=== PATIENT | female | born 1950 | race Caucasian/White ===

== ENCOUNTER → 2016-05-20 | Outpatient (CLI) | payer BC ==
[~2016-05-20] MED LIST: ASCA500 PO; ASPCH81; CLCC1250 PO; HYDC25 PO; MEDLIST; MULT-506 PO; OMEG10007 PO; PRM625 PO
--- NOTE | 2016-05-20 13:35 | MAMMOGRAPHY REPORT ---
BILATERAL DIGITAL SCREENING MAMMOGRAM WITH CAD: 05/20/2016 CLINICAL HISTORY: Routine screening. Patient has no complaints. TECHNIQUE: Current study was also evaluated with a Computer Aided Detection (CAD) system. Bilatera l CC and MLO views were obtained. COMPARISON: Comparison is made to exams dated: 05/17/2015 mammogram, 05/09/2014 mammogram, 05/08/2013 mammogram, 12/12/2014 mammogram, 05/05/2012 mammogram, and 04/30/2011 mammogram - [facility] enter. BREAST COMPOSITION: There are scattered areas of fibroglandular density in both breasts. FINDINGS: No suspicious masses, calcifications, or areas of architectural distortion are noted in e ither breast. There has been no significant interval change compared to prior exams. A biopsy marke r clip is again noted in the left upper outer quadrant. Bilateral benign-appearing calcifications a re not significantly changed. Small benign-appearing masses, most prominent in the right medial onesimo ast, are stable. IMPRESSION: ACR BI-RADS CATEGORY 2: BENIGN There is no mammographic evidence of malignancy. A 1 year screening mammogram is recommended. The p atient will receive written notification of the results. Approximately 10% of breast cancers are not detected with mammography. A negative mammographic repor t should not delay biopsy if a clinically suggestive mass is present. Sadia Miranda M.D. /:05/20/2016 07:39:22 Retail Zone Specialist: Inna GREENWOOD(Magdalena)(M), [facility] letter sent: Normal 1/2 BI-RADS Code: ACR BI-RADS Category 2: Benign
== END | disposition home or self-care (01) ==
LOC: C.MAMM 07:05
PROVIDERS: ATTEND Family Medicine
DX: Z12.31 Encounter for screening mammogram for malignant neoplasm of breast (principal)

== ENCOUNTER → 2017-05-24 | Outpatient (CLI) | payer BC ==
--- NOTE | 2017-05-25 07:55 | MAMMOGRAPHY REPORT ---
BILATERAL DIGITAL SCREENING MAMMOGRAM TOMOSYNTHESIS WITH CAD: 05/24/2017 CLINICAL HISTORY: Routine screening. Patient has no complaints. TECHNIQUE: Breast tomosynthesis in addition to standard 2D mammography was performed. Current study was also evaluated with a Computer Aided Detection (CAD) system. COMPARISON: Comparison is made to exams dated: 05/20/2016 mammogram, 05/17/2015 mammogram, 12/12/2014 m ammogram, 05/30/2014 mammogram, 05/30/2014 stereotactic biopsy, and 05/18/2014 ultrasound - [facility]. BREAST COMPOSITION: There are scattered areas of fibroglandular density in both breasts. FINDINGS: There are 2 lobulated masses in the lower inner anterior right breast/subareolar right onesimo ast that may be increased in size comparing to prior mammograms. Additional targeted ultrasound and possible additional mammographic views are recommended. A stable dumbbell shaped biopsy marker clip in the upper outer quadrant of the left breast. Scattere d benign rim calcifications. No other suspicious mass, architectural distortion or cluster of microc alcifications is seen. IMPRESSION: ACR BI-RADS CATEGORY 0: INCOMPLETE EVALUATION: NEED ADDITIONAL IMAGING EVALUATION The 2 lobulated masses in the lower inner anterior right breast needs additional evaluation. The patient will be called to schedule an appointment. Approximately 10% of breast cancers are not detected with mammography. A negative mammographic report should not delay biopsy if a clinically suggestive mass is present. Radha Guerra M.D. ay/:05/24/2017 18:18:04 Manager Media: Destiny GREENWOOD(Magdalena)([place]), [facility] letter sent: Addl Imaging 0 BI-RADS Code: ACR BI-RADS Category 0: Incomplete Evaluation: Need Additional Imaging Evaluation
== END | disposition home or self-care (01) ==
LOC: C.MAMM 07:08
PROVIDERS: ATTEND Family Medicine
DX: Z12.31 Encounter for screening mammogram for malignant neoplasm of breast (principal); N63.14 Unspecified lump in the right breast, lower inner quadrant

== ENCOUNTER → 2017-06-02 | Outpatient (CLI) | payer BC ==
--- NOTE | 2017-06-03 08:04 | MAMMOGRAPHY REPORT ---
ULTRASOUND OF RIGHT BREAST: 06/02/2017 CLINICAL HISTORY: 66-year-old woman called back from screening mammography for 2 possible masses in t he lower inner anterior right breast. She has a history of prior benign left breast stereotactic barbara ded biopsy performed in 2014. COMPARISON: Comparison is made to exams dated: 05/24/2017 mammogram, 05/20/2016 mammogram, 05/17/2015 m ammogram, 05/09/2014 mammogram, 05/08/2013 mammogram, and 05/05/2012 mammogram - [facility] nter. FINDINGS: Targeted ultrasound was performed in the lower inner quadrant of the right breast to assess for the mammographic masses. In the 4:00 axis, 1 cm from the nipple, there is a cluster of microcys ts with nonvascular internal septations. This cluster of microcysts measures 9.1 x 5.5 x 8.0 mm, and correlates with the more posterior mass seen in the right lower inner anterior breast. In the 4:00 periareolar breast there is a lobulated anechoic and hypoechoic cystic-appearing mass without evidenc e of internal vascularity. 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 While reviewing prior mammograms, the more anterior mass has likely been present and unchanged dating back to at least 2010 and the posterior mass appears unchanged dating back to 2013, therefore both are considered kendall gn. Recommend follow-up at time of next annual screening mammogram. IMPRESSION: ACR BI-RADS CATEGORY 2: BENIGN The two masses in the lower inner anterior right breast seen mammographically correspond to a microcl ip cyst cluster and focal duct ectasia on ultrasound. There is no targeted sonographic evidence of m alignancy. Recommend tomosynthesis screening mammography in 1 year. Radha Guerra M.D. ay/:06/02/2017 15:27:09 [address] Worker: Inna GREENWOOD(Magdalena)(M), [facility] letter sent: Normal 1/2 BI-RADS Code: ACR BI-RADS Category 2: Benign
== END | disposition home or self-care (01) ==
LOC: C.MAMM 13:28
PROVIDERS: ATTEND Family Medicine
DX: N63.10 Unspecified lump in the right breast, unspecified quadrant (principal)

== ENCOUNTER → 2017-07-19 | Day surgery (SDC) | payer BC ==
[2017-06-15 10:41] VITALS: Ht 160 cm; Wt 65.0 kg
[~2017-07-19] VITALS: Ht 160 cm; Wt 65.0 kg
[~2017-07-19] MED LIST changes: +500ML BSS 0.3ML EPI 1:1000PF IRRIG ONE; +ACETAMINOPHEN 325 MG TAB PO PRN; +AMVISC PLUS 0.8ML SYRINGE INT OCU ONE; -ASCA500 PO; +ASCO10003 PO; -ASPCH81; +ASPCH81X PO; +ATROPINE SULFATE 0.1 MG/ML 5ML SYR IV PRN; +BRIMONIDINE TART 0.2% OP SOLN PER DROP CHARGE ONE; +BSS FLUSH ONE; +CALC200T PO; +CARB1SOL OPB; +CHOL1000 PO; +CIPROFLOXACIN; -CLCC1250 PO; +CYAN100020 PO; +CYCL0.052 OPB; +ENDOCOAT 0.85ML SYRINGE INT OCU ONE; +ERYT2GEL3 EXT; +EpHEDrine SULFATE INJ 50 MG/ML AMP IV PRN; +EpINEphrine INJ 1MG/ML AMP 1 MG/ML AMP ONE; +GLUC10007 PO; -HYDC25 PO; +HYDR25TA5 PO; +LACTATED RINGER'S 1000ML 500 ML IV SCH; +LIDOCAINE 4% OP SOLN DROP CHARGE ONE; +LIDOCAINE 4% OP SOLN DROP CHARGE OPR SCH; +LIDOCAINE HCL 1% MPF 2 ML VIAL ONE; -MEDLIST; +MIDAZOLAM HCL 1 MG/ML 2ML VIAL ONE; +MIX: 3ML BSS AND 1ML EPI(PF) TOP ONE; +MOXIFLOXACIN OPH SOLN PER DROP CHARGE ONE; -OMEG10007 PO; +OMEGCAP2 PO; +POVIDONE-IODINE OP SOLN 30 ML BTL ONE; +PRED1SUS3 OPL; -PRM625 PO; +PROPARACAINE 0.5% OP SOLN PER DROP CHARGE OPR SCH; +TOBRAMYCIN/DEXAMETHASONE OPH OINT PER APPLN CHARGE ONE
[2017-07-19] MEDS: PHENYLEPHRINE HCL 2.5% OP SOLN PER DROP CHARGE OPR SCH ×2 (06:52→06:57)
[2017-07-19] MEDS: TROPICAMIDE 1% OP SOLN PER DROP CHARGE OPR SCH ×2 (06:53→06:58)
[2017-07-19] MEDS: CYCLOPENTOLATE HCL 1% OP SOLN PER DROP CHARGE OPR SCH ×2 (06:54→06:59)
[2017-07-19] MEDS: KETOROLAC 0.5% OP SOLN PER DROP CHARGE OPR SCH ×2 (06:55→07:00)
[2017-07-19] MEDS: MOXIFLOXACIN OPH SOLN PER DROP CHARGE OPR SCH ×2 (06:56→07:06)
--- NOTE | 2017-07-19 06:56 | History & Physical Bridge - SC ---
H&P Re-Evaluation Bridge Note: I have examined the patient, reviewed the History & Physical and in the interval since the performance of the History & Physical I have noted the following changes of clinical significance: No changes noted
--- NOTE | 2017-07-19 07:55 | [facility] Operative Report ---
Operative Report Operative Date Jul 19, 2017. Pre-Operative Diagnosis Right Eye Cataract Post-Operative Diagnosis Same Procedure(s) Performed Right Eye Cataract Phacoemulsification With Intraocular Lens Implant Surgeon Dr. Gomes Paste Maker Surgeon(s) None Estimated Blood Loss None Findings cataract right eye Fluids see anesthesia record Specimens None Drains None Anesthesia Type MAC Complication(s) none Disposition no Recovery Room / PACU Indications decreased vision right ey Description of Procedure After informed consent was obtained in the holding area the patient was wheeled back to the operating room where cardiac monitoring leads and oxygen by nasal cannula was administered by Anesthesia. Gentle IV sedation was given, and the patient's right eye was prepped and draped in usual sterile fashion. A wire lid speculum was placed into the right eye and the operating microscope was swung into position. Using 0.12 forceps and a Supersharp blade a paracentesis port was made 2 o'clock hours away from the 9 o'clock position of the patient's right eye. 1% non-preserved Lidocaine was then injected into the anterior chamber for anesthesia. A 2.0 mm keratotome blade was then used to make a shelved clear corneal incision at the 9 o'clock position of the right eye. Amvisc was injected into the anterior chamber and a cystotome and Utrata forceps were used to perform a curvilinear capsulorrhexis. BSS on a hydrodissection cannula was used to hydrodissect the lens nucleus away from the capsular bag. The phacoemulsification handpiece was then used in a stop and chop fashion to remove the lens nucleus. The irrigation and aspiration handpiece was then used to remove the residual cortical material. Amvisc was injected into the capsular bag and anterior chamber and a Bausch & Lomb MX60 26.5 Diopter intraocular lens was injected into the capsular bag. Irrigation and aspiration handpiece was used to remove the residual viscoelastic material. The wounds were hydrated and noted to be watertight. The wire lid speculum was removed from the eye. Vigamox, Brimonidine, and TobraDex ointment were placed on the eye and it was shielded. It should be noted that EndoCoat was used extensively during the case to protect the cornea endothelium. DISPOSITION: The patient tolerated the procedure well and was wheeled to the post anesthesia care unit in stable condition. I attest to the content of the Intraoperative Record and any orders documented therein. Any exceptions are noted below. I attest to the content of the Intraoperative Record and any orders documented therein. Any exceptions are noted below.
[2017-07-19 07:57] VITALS: TEMP 36.6
--- NOTE | 2017-07-19 07:57 | Discharge Instructions-SurgCtr ---
Discharge Instructions Date of Service Jul 19, 2017. Visit Reason for Visit: Cataract Right Eye Discharge Discharge Diagnosis / Problem: cataract right eye Discharge Goals Goal(s): Improve function Activity Recommendations Activity Limitations: per Instructions/Follow-up section Lifting Limitations: no more than 5 pounds Anesthesia . Post Anesthesia Instructions: If you have had General Anesthesia or IV Sedation: * Do not drive today. * Resume driving when surgeon permits. * Do not make important decisions or sign legal documents today. * Call surgeon for: 1. Temperature elevations greater than 101 degrees F. 2. Uncontrollable pain. 3. Excessive bleeding. 4. Persistent nausea and vomiting. 5. Medication intolerance (nausea, vomiting or rash). * For nausea and vomiting use only clear liquids such as: tea, soda, bouillon until nausea subsides, then gradually increase diet as tolerated. * If you have any concerns or questions, call your surgeon's office. If physician is unavailable and it is an emergency, call 911 or go to the nearest emergency room. . Instructions / Follow-Up Instructions / Follow-Up ACTIVITY RECOMMENDATIONS: * Light activities * You may walk outside, read, watch television. * Mild irritation and blurred vision are common for the first few days, redness around the white part of the eye is common. MEDICATIONS: Resume previous medications unless instructed otherwise by your surgeon. Eye drops (today and tomorrow): Cipro - one drop in operative eye every 2 hours while awake Prednisolone 1% - one drop in operative eye every 2 hours while awake SPECIAL CARE INSTRUCTIONS: * If any problems or concerns, please call Dr. Gomes's office at . * Keep plastic shield taped over eye to sleep at night. * Keep plastic shield taped over eye except to administer eye drops. * Keep plastic shield on until office visit the following day. FOLLOW UP VISIT: Follow-up with Dr. Gomes in the [place] office as scheduled. If not already scheduled, please call the office at . Diet Recommendations Home Diet: resume previous diet Procedures Procedures Performed: Right Eye Cataract Phacoemulsification With Intraocular Lens Implant Pending Studies Studies pending at discharge: no Medical Emergencies . Who to Call and When: Medical Emergencies: If at any time you feel your situation is an emergency, please call 911 immediately. . Non-Emergent Contact Non-Emergency issues call your: Battery Builder . . "Provider Documentation" section prepared by Donell Gomes. .
--- NOTE | 2017-07-19 08:14 | Anesthesia Progress Nt - [facility] ---
Anesthesia Post Op Note Date & Time Jul 19, 2017 at 08:14 Vital Signs Pain Intensity: 0 Vital Signs Past 12 Hours Date Time Temp Pulse Resp B/P (MAP) Pulse Ox O2 Delivery O2 Flow Rate FiO2 07/19/17 07:57 36.6 86 16 113/69 (84) 94 Room Air 07/19/17 06:39 36.8 83 16 167/75 (105) 93 Room Air Notes Mental Status: alert / awake / arousable, participated in evaluation Pt Amnestic to Procedure: Yes Nausea / Vomiting: adequately controlled Pain: adequately controlled Airway Patency, RR, SpO2: stable & adequate BP & HR: stable & adequate Hydration State: stable & adequate Anesthetic Complications: no major complications apparent
[2017-07-19 08:21] VITALS: BP 126/84; PULSE 78; O2SAT 93
== END | disposition home or self-care (01) ==
LOC: X.SURG 06:26
PROVIDERS: ATTEND Ophthalmology
DX: H25.11 Age-related nuclear cataract, right eye (principal); I10 Essential (primary) hypertension; M19.90 Unspecified osteoarthritis, unspecified site; F17.200 Nicotine dependence, unspecified, uncomplicated; Z90.710 Acquired absence of both cervix and uterus; Z90.49 Acquired absence of other specified parts of digestive tract; Z79.82 Long term (current) use of aspirin; Z88.5 Allergy status to narcotic agent

== ENCOUNTER → 2017-08-09 | Day surgery (SDC) | payer BC ==
[2017-07-30 08:24] VITALS: Ht 160 cm; Wt 65.0 kg
[~2017-08-09] VITALS: Ht 160 cm; Wt 65.0 kg
[~2017-08-09] MED LIST changes: +KETOROLAC 0.5% OP SOLN PER DROP CHARGE OPL SCH; +LIDOCAINE 4% OP SOLN DROP CHARGE OPL SCH; -LIDOCAINE 4% OP SOLN DROP CHARGE OPR SCH; -MIX: 3ML BSS AND 1ML EPI(PF) TOP ONE; +PROPARACAINE 0.5% OP SOLN PER DROP CHARGE OPL SCH; -PROPARACAINE 0.5% OP SOLN PER DROP CHARGE OPR SCH
[2017-08-09] MEDS: PHENYLEPHRINE HCL 2.5% OP SOLN PER DROP CHARGE OPL SCH ×2 (07:58→08:03)
[2017-08-09] MEDS: TROPICAMIDE 1% OP SOLN PER DROP CHARGE OPL SCH ×2 (07:59→08:03)
[2017-08-09] MEDS: CYCLOPENTOLATE HCL 1% OP SOLN PER DROP CHARGE OPL SCH ×2 (08:00→08:04)
[2017-08-09] MEDS: MOXIFLOXACIN OPH SOLN PER DROP CHARGE OPL SCH ×2 (08:01→08:06)
--- NOTE | 2017-08-09 09:10 | [facility] Operative Report ---
Operative Report Operative Date August 09, 2017. Pre-Operative Diagnosis Left Eye Cataract Post-Operative Diagnosis same as preop Procedure(s) Performed Left Cataract Phacoemulsification With Intraocular Lens Implant Surgeon Dr. Gomes Commander Internal Affairs Surgeon(s) none Estimated Blood Loss 0ml Findings cataract left eye Fluids see anesthesia record Specimens none Drains None Anesthesia Type MAC Complication(s) none Disposition no Recovery Room / PACU Indications decreased vision left eye Description of Procedure After informed consent was obtained in the holding area the patient was wheeled back to the operating room where cardiac monitoring leads and oxygen by nasal cannula was administered by Anesthesia. Gentle IV sedation was given, and the patient's left eye was prepped and draped in usual sterile fashion. A wire lid speculum was placed into the left eye and the operating microscope was swung into position. Using 0.12 forceps and a Supersharp blade a paracentesis port was made 2 o'clock hours away from the 3 o'clock position of the patient's left eye. 1% non-preserved Lidocaine was then injected into the anterior chamber for anesthesia. A 2.0 mm keratotome blade was then used to make a shelved clear corneal incision at the 3 o'clock position of the left eye. Amvisc was injected into the anterior chamber and a cystotome and Utrata forceps were used to perform a curvilinear capsulorrhexis. BSS on a hydrodissection cannula was used to hydrodissect the lens nucleus away from the capsular bag. The phacoemulsification handpiece was then used in a stop and chop fashion to remove the lens nucleus. The irrigation and aspiration handpiece was then used to remove the residual cortical material. Amvisc was injected into the capsular bag and anterior chamber and a Bausch & Lomb MX60 26.0 Diopter intraocular lens was injected into the capsular bag. Irrigation and aspiration handpiece was used to remove the residual viscoelastic material. The wounds were hydrated and noted to be watertight. The wire lid speculum was removed from the eye. Vigamox, Brimonidine, and TobraDex ointment were placed on the eye and it was shielded. It should be noted that EndoCoat was used extensively during the case to protect the cornea endothelium. DISPOSITION: The patient tolerated the procedure well and was wheeled to the post anesthesia care unit in stable condition. I attest to the content of the Intraoperative Record and any orders documented therein. Any exceptions are noted below. I attest to the content of the Intraoperative Record and any orders documented therein. Any exceptions are noted below.
[2017-08-09 09:12] VITALS: TEMP 37
--- NOTE | 2017-08-09 09:12 | Discharge Instructions-SurgCtr ---
Discharge Instructions Date of Service August 09, 2017. Visit Reason for Visit: Cataract Left Eye Discharge Discharge Diagnosis / Problem: cataract left eye Discharge Goals Goal(s): Improve function Activity Recommendations Activity Limitations: per Instructions/Follow-up section Lifting Limitations: no more than 5 pounds Anesthesia . Post Anesthesia Instructions: If you have had General Anesthesia or IV Sedation: * Do not drive today. * Resume driving when surgeon permits. * Do not make important decisions or sign legal documents today. * Call surgeon for: 1. Temperature elevations greater than 101 degrees F. 2. Uncontrollable pain. 3. Excessive bleeding. 4. Persistent nausea and vomiting. 5. Medication intolerance (nausea, vomiting or rash). * For nausea and vomiting use only clear liquids such as: tea, soda, bouillon until nausea subsides, then gradually increase diet as tolerated. * If you have any concerns or questions, call your surgeon's office. If physician is unavailable and it is an emergency, call 911 or go to the nearest emergency room. . Instructions / Follow-Up Instructions / Follow-Up ACTIVITY RECOMMENDATIONS: * Light activities * You may walk outside, read, watch television. * Mild irritation and blurred vision are common for the first few days, redness around the white part of the eye is common. MEDICATIONS: Resume previous medications unless instructed otherwise by your surgeon. Eye drops (today and tomorrow): Cipro - one drop in operative eye every 2 hours while awake Prednisolone 1% - one drop in operative eye every 2 hours while awake SPECIAL CARE INSTRUCTIONS: * If any problems or concerns, please call Dr. Gomes's office at . * Keep plastic shield taped over eye to sleep at night. * Keep plastic shield taped over eye except to administer eye drops. * Keep plastic shield on until office visit the following day. FOLLOW UP VISIT: Follow-up with Dr. Gomes in the [place] office as scheduled. If not already scheduled, please call the office at . Diet Recommendations Home Diet: resume previous diet Procedures Procedures Performed: Left Cataract Phacoemulsification With Intraocular Lens Implant Pending Studies Studies pending at discharge: no Medical Emergencies . Who to Call and When: Medical Emergencies: If at any time you feel your situation is an emergency, please call 911 immediately. . Non-Emergent Contact Non-Emergency issues call your: Surgery Consultant . . "Provider Documentation" section prepared by Donell Gomes. .
--- NOTE | 2017-08-09 09:18 | Anesthesia Progress Nt - [facility] ---
Anesthesia Post Op Note Date & Time August 09, 2017 at 09:18 Vital Signs Pain Intensity: 0 Vital Signs Past 12 Hours Date Time Temp Pulse Resp B/P (MAP) Pulse Ox O2 Delivery O2 Flow Rate FiO2 08/09/17 09:12 37.0 81 16 136/78 (97) 94 Room Air 08/09/17 07:52 36.9 76 18 152/74 (100) 92 Room Air Notes Mental Status: alert / awake / arousable, participated in evaluation Pt Amnestic to Procedure: Yes Nausea / Vomiting: adequately controlled Pain: adequately controlled Airway Patency, RR, SpO2: stable & adequate BP & HR: stable & adequate Hydration State: stable & adequate Anesthetic Complications: no major complications apparent
[2017-08-09 09:36] VITALS: BP 143/75; PULSE 68; O2SAT 97
== END | disposition home or self-care (01) ==
LOC: X.SURG 06:59
PROVIDERS: ATTEND Ophthalmology
DX: H25.12 Age-related nuclear cataract, left eye (principal); Z88.6 Allergy status to analgesic agent; I10 Essential (primary) hypertension; F17.200 Nicotine dependence, unspecified, uncomplicated

== ENCOUNTER 2021-08-18 18:27 | Inpatient (IN) ==
[2021-08-18] MEDS ORDERED: ALBUT/IPRATROP 3MG/0.5MG NEB 3 ML VIAL NEB ONE (18:44)
--- NOTE | 2021-08-18 18:44 | Emergency Department Note ---
Impression & Plan Pulmonary mass, Hypoxia, Breath shortness ED Provider Note NAME: MIGUEL GRUBBS AGE: 71 SEX: F : 1950 ARRIVES VIA: Walk-In INFORMANT: Patient ED PROVIDER(S): Pablito Tejada DO CHIEF COMPLAINT: Shortness of breath HPI: Patient is a 71-year-old female who presents ER for upper respiratory symptoms which started about a week ago. Patient is a smoker. She admits to shortness of breath for the past week. She is had a cough and congestion over the past 4 to 5 days. Denies any belly pain, nausea, vomiting, or diarrhea. No dysuria, urgency, or frequency. No other exacerbating or remitting factors. ROS: See above HPI for pertinent positives & negatives. A total of 10 systems reviewed and were otherwise negative. PAST MEDICAL HISTORY:See Below PAST SURGICAL HISTORY:See Below FAMILY HISTORY:See Below SOCIAL HISTORY:See Below HOME MEDICATIONS:See Below ALLERGIES:See Below VITALS:See Below PHYSICAL EXAMINATION: GENERAL: Sitting up in bed, alert, slightly ill-appearing, dyspneic with conversation, EYE EXAM: normal conjunctiva. OROPHARYNX: no exudate, no erythema, lips, buccal mucosa, and tongue normal and mucous membranes are moist NECK: supple, no nuchal rigidity, no adenopathy, non-tender LUNGS: Clear to auscultation. Normal chest wall mechanics HEART: no murmurs, S1 normal and S2 normal ABDOMEN: abdomen soft, non-tender, normo-active bowel sounds, no masses, no rebound or guarding. UPPER EXTREMITIES: upper extremities are grossly normal. LOWER EXTREMITIES: No pitting edema. NEURO EXAM: Normal sensorium, cranial nerves II-XII grossly intact, normal speech, no gross weakness of arms, no gross weakness of legs. MEDICAL DECISION MAKING: Patient is a 71-year-old female who presents the ER for shortness of breath. Upon arrival patient is found to be hypoxic at 70% on room air. She is placed on 3 L titrated up to the 90s. IV was established blood work was obtained. Labs show leukocytosis of 13,000. No significant anemia. BMP was unremarkable. Calcium was elevated at 10.7. LFTs bilirubin and troponin was negative. TSH was normal. Lipase was normal. Influenza COVID and RSV were negative. Chest x-ray with a left-sided mass. CT angio of the chest shows large pulmonary mass which is likely cancerous in nature. She was given IV Rocephin and azithromycin. She was updated bedside. She was discussed with hospitalist admitted for further work-up. Triage Nursing notes reviewed. Limited review of prior medical records performed Vital Signs: reviewed and remarkable for tachycardic, tachypneic and hypoxic Differential diagnosis: Differential diagnoses includes but is not limited to pneumonia, bronchitis, COPD/Asthma exacerbation, pneumothorax, pulmonary embolism, congestive heart failure, acute coronary syndrome ER treatment provided: See below Diagnostics interpreted by me: ECG: Sinus tachycardia rate of 114 Normal axis No PVCs QTC 435 Cardiac Monitoring: An order was placed for continuous cardiac monitoring. The monitor shows a rate of 110 with sinus rhythm. Laboratory studies: As stated above and show below. Imaging studies: CT angio of the chest showed lung cancer pleural effusion Consultation(s): [place] with Emile Clark for further evaluation Procedures: none Critical Care: I have personally spent 32 minutes of critical care time in the direct management of this patient. This includes bedside care, interpretation of diagnostic studies, and testing, discussion with consultants, patient, and family members, and other required patient management activities. This 32 minutes is in excess of all separately billable procedures. Past Med/Surg History Medical History (Updated 08/18/21 @ 23:49 by Pablito Tejada DO) No known health problems Family History Other No pertinent family history Social History Smoking Status: Current every day smoker Tobacco Type: Cigarettes Preferred Language: Welsh Feels Safe at Home: Yes Allergies Allergies Allergy/AdvReac Type Severity Reaction Status Date / Time naproxen Allergy Intermediate HIVES Verified 08/18/21 19:59 Home Meds Home Medications Medication Instructions Recorded Confirmed ascorbic acid (vitamin C) 1,000 mg 1,000 mg PO QAM 06/25/18 08/18/21 tablet (Vitamin C) aspirin 81 mg tablet,delayed 81 mg PO QAM 06/25/18 08/18/21 release calcium carbonate 500 mg-vitamin 2 tab PO QAM 06/25/18 08/18/21 D3 5 mcg (200 unit) tablet (Os-Reji 500 + D3) carboxymethylcellulose sodium 1 drp OPB DAILY PRN 06/25/18 08/18/21 cholecalciferol (vitamin D3) 25 1,000 unit PO QAM 06/25/18 08/18/21 mcg (1,000 unit) capsule (Vitamin D3) cyanocobalamin (vitamin B-12) 1,000 mcg PO QAM 06/25/18 08/18/21 1,000 mcg tablet (Vitamin B-12) cyclosporine 0.05 % eye drops in a 1 drp OPB BID 06/25/18 08/18/21 dropperette (Restasis) erythromycin with ethanol 2 % 1 applic TOPICAL QAM 06/25/18 08/18/21 topical solution glucosamine sulfate 1,000 mg 2,000 mg PO BID 06/25/18 08/18/21 capsule hydrochlorothiazide 25 mg tablet 25 mg PO QAM 06/25/18 08/18/21 multivitamin 1 tab PO QAM 06/25/18 08/18/21 omega 3 350 mg-dha 235 mg-epa 90 1 cap PO PM 06/25/18 08/18/21 mg-fish oil 597 mg capsule,delay rel ([place]-3) atorvastatin 20 mg tablet 20 mg PO HS 08/18/21 08/18/21 Results & Data (ED) Vital Signs Vital Signs - 24 hr 08/18/21 18:28 08/18/21 19:08 08/18/21 19:14 Temperature 36.7 C Temperature Source Temporal Artery Scan Pulse Rate 132 H 97 H Pulse Rate [Apical] 109 H Pulse Rhythm Regular Respiratory Rate 30 H 18 16 Respiratory Effort / Characteristics Spontaneous Respiratory Depth Blood Pressure 130/76 Blood Pressure [Right Arm] Blood Pressure Mean 94 Blood Pressure Mean [Right Arm] Pulse Oximetry 81 L 98 98 Oxygen Delivery Method Room Air Nasal Cannula Nasal Cannula Oxygen Flow Rate 3 3 Sepsis Recent Fever Within 48 Hours No Sepsis New/Unexplained Change in Mental Status No Sepsis Action Taken by Nursing No Action Required 08/18/21 19:48 08/18/21 20:45 08/18/21 20:53 Temperature Temperature Source Pulse Rate Pulse Rate [Apical] 110 H Pulse Rhythm Respiratory Rate 18 Respiratory Effort / Characteristics Non-Labored Respiratory Depth Normal Blood Pressure Blood Pressure [Right Arm] 126/72 Blood Pressure Mean Blood Pressure Mean [Right Arm] 90 Pulse Oximetry 99 68 L 98 Oxygen Delivery Method Nasal Cannula Room Air Nasal Cannula Oxygen Flow Rate 3 3 Sepsis Recent Fever Within 48 Hours Sepsis New/Unexplained Change in Mental Status Sepsis Action Taken by Nursing Laboratory Data Result diagrams: 08/18/21 18:56 08/18/21 18:56 Lab Results 08/18/21 08/18/21 08/18/21 Range/Units 18:56 18:56 18:56 WBC 13.46 H (4.8-10.8) K/uL RBC 4.68 (4.2-5.4) M/uL Hgb 13.0 (12.0-16.0) g/dL Hct 39.4 (37-47) % MCV 84.2 (80-100) fL MCH 27.8 (25-34) pg MCHC 33.0 (32-36) g/dL RDW Std Deviation 42.6 (36.4-46.3) fL RDW Coeff of Miguel 14.0 (11.5-14.5) % Plt Count 439 H (130-400) K/uL MPV 10.0 (7.4-10.4) fL Immature Gran % (Auto) 0.7 % Neut % (Auto) 84.2 % Lymph % (Auto) 6.7 % [place] % (Auto) 8.2 % Eos % (Auto) 0.1 % Baso % (Auto) 0.1 % Neut # (Auto) 11.34 H (1.4-6.5) K/uL Lymph # (Auto) 0.90 L (1.2-3.4) K/uL [place] # (Auto) 1.10 H (0.11-0.59) K/uL Eos # (Auto) 0.02 (0-0.5) K/uL Baso # (Auto) 0.01 (0-0.2) K/uL Immature Gran # (Auto) 0.09 H (0.00-0.02) K/uL Sodium 140 (136-145) mmol/L Potassium 3.7 (3.5-5.1) mmol/L Chloride 98 (98-107) mmol/L Carbon Dioxide 32 (21-32) mmol/L Anion Gap 10 (3-11) BUN 29 H (6-23) mg/dl Creatinine 0.58 L (0.6-1.2) mg/dl Est Cr Clr Drug Dosing 71.0 ml/min Est GFR ( Amer) 108.2 ml/min Est GFR (Non-Af Amer) 93.4 ml/min BUN/Creatinine Ratio 50.0 H (10-20) Glucose 149 H (70-99(Fasting)) mg/dl Calcium 10.7 H (8.5-10.1) mg/dl Phosphorus (2.5-4.9) mg/dl Magnesium (1.7-2.4) mg/dl Total Bilirubin 0.7 (0.2-1.0) mg/dl AST 26 (13-39) U/L ALT 28 (7-52) U/L Alkaline Phosphatase 101 (34-104) U/L Troponin I High Sens 11.1 (0-14) pg/ml Total Protein 6.3 (6.0-8.3) gm/dl Albumin 3.4 (3.4-5.0) gm/dl Globulin 2.9 (2.5-4.0) gm/dl Albumin/Globulin Ratio 1.2 (0.9-2) Lipase 22 (11-82) U/L SARS-CoV-2 (PCR) (Negative) Influenza Type A (PCR) (Neg) Influenza Type B (PCR) (Neg) RSV (RT-PCR) (Neg) 08/18/21 08/18/21 Range/Units 18:56 19:05 WBC (4.8-10.8) K/uL RBC (4.2-5.4) M/uL Hgb (12.0-16.0) g/dL Hct (37-47) % MCV (80-100) fL MCH (25-34) pg MCHC (32-36) g/dL RDW Std Deviation (36.4-46.3) fL RDW Coeff of Miguel (11.5-14.5) % Plt Count (130-400) K/uL MPV (7.4-10.4) fL Immature Gran % (Auto) % Neut % (Auto) % Lymph % (Auto) % [place] % (Auto) % Eos % (Auto) % Baso % (Auto) % Neut # (Auto) (1.4-6.5) K/uL Lymph # (Auto) (1.2-3.4) K/uL [place] # (Auto) (0.11-0.59) K/uL Eos # (Auto) (0-0.5) K/uL Baso # (Auto) (0-0.2) K/uL Immature Gran # (Auto) (0.00-0.02) K/uL Sodium (136-145) mmol/L Potassium (3.5-5.1) mmol/L Chloride (98-107) mmol/L Carbon Dioxide (21-32) mmol/L Anion Gap (3-11) BUN (6-23) mg/dl Creatinine (0.6-1.2) mg/dl Est Cr Clr Drug Dosing ml/min Est GFR ( Amer) ml/min Est GFR (Non-Af Amer) ml/min BUN/Creatinine Ratio (10-20) Glucose (70-99(Fasting)) mg/dl Calcium (8.5-10.1) mg/dl Phosphorus 3.5 (2.5-4.9) mg/dl Magnesium 1.8 (1.7-2.4) mg/dl Total Bilirubin (0.2-1.0) mg/dl AST (13-39) U/L ALT (7-52) U/L Alkaline Phosphatase (34-104) U/L Troponin I High Sens (0-14) pg/ml Total Protein (6.0-8.3) gm/dl Albumin (3.4-5.0) gm/dl Globulin (2.5-4.0) gm/dl Albumin/Globulin Ratio (0.9-2) Lipase (11-82) U/L SARS-CoV-2 (PCR) NEGATIVE (Negative) Influenza Type A (PCR) Negative (Neg) Influenza Type B (PCR) Negative (Neg) RSV (RT-PCR) Negative (Neg) Administered Medications Discontinued Medications Albuterol (Albut/Ipratrop 3mg/0.5mg Neb 3 Ml Vial) 12 ml NEB ONE ONE; Protocol Stop: 08/18/21 18:45 Last Admin: 08/18/21 19:11 Dose: 12 ml Documented by: [id number] Ceftriaxone Sodium (Rocephin) 1,000 mg in 50 mls @ 100 mls/hr IV NOW STA Stop: 08/18/21 21:39 Last Infusion: 08/18/21 22:28 Dose: 0 mls/hr Documented by: [id number] Admin: 08/18/21 21:31 Dose: 100 mls/hr Documented by: [id number] Azithromycin 500 mg/ Dextrose 255 mls @ 125 mls/hr IV ONE ONE Stop: 08/18/21 23:12 Last Admin: 08/18/21 22:40 Dose: Not Given Documented by: [id number] Ioversol (Optiray 320 100ml) 120 ml IV ONCE ONE Stop: 08/18/21 20:38 Last Admin: 08/18/21 20:39 Dose: 120 ml Documented by: [id number] Methylprednisolone (Methylprednisolone 40 Mg/Ml Vial) 40 mg IV NOW STA Stop: 08/18/21 18:45 Last Admin: 08/18/21 19:02 Dose: 40 mg Documented by: [id number] Potassium Chloride (Potassium Chloride Crtab 20 Meq Tabcr) 40 meq PO NOW STA Stop: 08/18/21 21:47 Last Admin: 08/18/21 22:27 Dose: 40 meq Documented by: [id number] Imaging Data Radiologist's Impression: Chest X-Ray 08/18/21 18:37 XR chest 1V portable CLINICAL HISTORY: Atypical chest pain. COMPARISON STUDY: Chest radiograph June 25, 2018. FINDINGS: There is no pneumothorax. Moderate left and small right pleural effusions are noted. Left hilar/suprahilar mass-like opacities are present. Mediastinal widening is new since prior examination. There may be mild pulmonary edema. IMPRESSION: 1. Left hilar and suprahilar mass-like opacities. The findings are concerning for a mass with left hilar adenopathy. A chest CT with contrast is recommended for further evaluation. 2. Mediastinal widening which may also reflect lymphadenopathy. 3. Moderate left and small right pleural effusions. 4. Possible mild pulmonary edema. ACT 112: Positive. There are findings on this exam that require communication between the performing entity and the patient following Patient Test Result [place] Act [place] Act 112[place] guidelines. Electronically signed by: Adams Rosas M.D. 08/18/2021 7:07 PM Chest CTA 08/18/21 19:13 CT ANGIOGRAPHY OF THE CHEST, PULMONARY EMBOLUS PROTOCOL CLINICAL HISTORY: Atypical chest pain. Abnormal chest radiograph. COMPARISON STUDY: Chest radiograph performed earlier today. TECHNIQUE: Following IV administration of 120 mL of Optiray, helical axial images of the chest were obtained utilizing the pulmonary embolus protocol. Maximal intensity projections and sagittal and coronal reformats were viewed on an independent 3D workstation. IV contrast was administered without c omplication. Automated exposure control was utilized for the study. A dose lowering technique was utilized adhering to the principles of ALARA. CT DOSE: 233.03 mGy.cm FINDINGS: No pulmonary emboli are identified. However, multiple pulmonary arteries are distorted and narrowed by extensive mediastinal and hilar lymph adenopathy. Note is made of a large heterogeneous partially necrotic left upper lobe/left anterior mediastinal mass that measures 11 x 8 cm. This invades the mediastinum and extends into the left anterior chest wall. Extensive associated lymphadenopathy is present including a left supraclavicular lymph node that measures 3.5 x 3.2 cm. A right supraclavicular lymph node measures 2 x 1.5 cm. This node has significant mass effect upon the right internal jugular vein. Additional lymph nodes have moderate mass effect upon the superior vena cava which remains patent. There is occlusion versus severe narrowing of the left brachiocephalic vein due to lymphadenopathy. Index right paratracheal lymph node measures 4.6 x 3.8 cm. Numerous pulmonary lesions are noted, including a necrotic 6.4 cm left lower lobe mass. Index right lower lobe lesions measure up to 1.8 cm. Moderate emphysema is present. A moderate left pleural effusion is present. Multifocal airway narrowing versus occlusion is noted, including occlusion versus narrowing of the left lower lobe bronchi with extensive left lower lobe airspace opacity. There is occlusion of the proximal left upper lobe bronchus and suspected extensive secretions versus short segment occlusion of the left lower lobe bronchus. Extensive secretions within right lower lobe airways are present. No suspicious lesions are identified within the visualized bony thorax. Mild cardiomegaly is noted. There is extensive coronary artery calcification. A small pericardial effusion is present. A 2.1 cm focus within the left hepatic lobe contains linear enhancement. This could reflect a hemangioma or represent collaterals related to venous stenosis within the chest. IMPRESSION: 1. Large necrotic left upper lobe/left anterior mediastinal mass that measures 11 x 8 cm. This is suggestive of a central bronchogenic carcinoma. Extensive mediastinal invasion and lymphadenopathy with multifocal venous and airway stenosis/occlusion, as described above. Pulmonary consultation is recommended. 2. 6.4 cm necrotic left lower lobe mass and numerous smaller pulmonary metastases. 3. Moderate left pleural effusion. 4. No pulmonary emboli identified. 5. Emphysema. ACT 112: Positive. There are findings on this exam that require communication between the performing entity and the patient following Patient Test Result Information Act ([place] Act 112) guidelines. Electronically signed by: Adams Rosas M.D. 08/18/2021 9:13 PM Discharge Plan Visit Data Chief Complaint: Congestion Stated Complaint: CONGESTION, NO APPETITE, WEIGHT LOSS ED Provider: Pablito Tejada Discharge Problem: Pulmonary mass, Hypoxia, Breath shortness Patient Disposition: Admitted As Inpatient Discharge Instructions Interventions: ED Discharge Assessment Last Done: 08/18/21 23:13
--- NOTE | 2021-08-18 19:09 | XRay Report ---
XR chest 1V portable CLINICAL HISTORY: Atypical chest pain. COMPARISON STUDY: Chest radiograph June 25, 2018. FINDINGS: There is no pneumothorax. Moderate left and small right pleural effusions are noted. Left h ilar/suprahilar mass-like opacities are present. Mediastinal widening is new since prior examination. There may be mild pulmonary edema. IMPRESSION: 1. Left hilar and suprahilar mass-like opacities. The findings are concerning for a mass with left hi lar adenopathy. A chest CT with contrast is recommended for further evaluation. 2. Mediastinal widening which may also reflect lymphadenopathy. 3. Moderate left and small right pleural effusions. 4. Possible mild pulmonary edema. ACT 112: Positive. There are findings on this exam that require communication between the performing entity and the patient following Patient Test Result [place] Act [place] Act 112[place] guidelines. Electronically signed by: Adams Rosas M.D. 08/18/2021 7:07 PM
[2021-08-18 19:37] LABS: Basophils # (auto) 0.01 K/uL (0-0.2); Basophils % (auto) 0.1 %; Eosinophils # (auto) 0.02 K/uL (0-0.5); Eosinophils % (auto) 0.1 %; Hematocrit (blood only) 39.4 % (37-47); Immature Granulocytes # (auto) 0.09 K/uL (0.00-0.02); Immature Granulocytes % (auto) 0.7 %; Lymphocytes % (auto) 6.7 %; Mean Corpuscular Hemoglobin 27.8 pg (25-34); Mean Corpuscular Volume 84.2 fL (80-100); Monocytes % (auto) 8.2 %; Neutrophils # (auto) 11.34 K/uL (1.4-6.5); Neutrophils % (auto) 84.2 %; Platelet Count 439 K/uL (130-400); RDW Standard Deviation 42.6 fL (36.4-46.3); Red Blood Count 4.68 M/uL (4.2-5.4); White Blood Count 13.46 K/uL (4.8-10.8)
[2021-08-18 19:41] LABS: Albumin Globulin Ratio 1.2 (0.9-2); Albumin Level 3.4 gm/dl (3.4-5.0); Bilirubin,Total 0.7 mg/dl (0.2-1.0); Calcium 10.7 mg/dl (8.5-10.1); Est GFR (African American) 108.2 ml/min; Est GFR (Non-African American) 93.4 ml/min; Globulin 2.9 gm/dl (2.5-4.0); Potassium 3.7 mmol/L (3.5-5.1); Total Protein 6.3 gm/dl (6.0-8.3)
[2021-08-18 19:58] LABS: Influenza A virus by PCR Negative (Neg); Influenza B virus by PCR Negative (Neg); RSV by PCR Negative (Neg); SARS CoV2 RNA(COVID-19) InHosp NEGATIVE (Negative)
[2021-08-18] MEDS ORDERED: OPTIRAY 320 100ml IV ONE (20:37)
[2021-08-18] MEDS ORDERED: AZITHROMYCIN 500 MG in DEXTROSE 5% 250 ML IV ONE (21:10)
[2021-08-18] MEDS ORDERED: cefTRIAXone SODIUM 1,000 MG/50 ML BAG IV STA (21:10)
--- NOTE | 2021-08-18 21:16 | CT Scan Report ---
CT ANGIOGRAPHY OF THE CHEST, PULMONARY EMBOLUS PROTOCOL CLINICAL HISTORY: Atypical chest pain. Abnormal chest radiograph. COMPARISON STUDY: Chest radiograph performed earlier today. TECHNIQUE: Following IV administration of 120 mL of Optiray, helical axial images of the chest were o btained utilizing the pulmonary embolus protocol. Maximal intensity projections and sagittal and cor onal reformats were viewed on an independent 3D workstation. IV contrast was administered without co mplication. Automated exposure control was utilized for the study. A dose lowering technique was ut ilized adhering to the principles of ALARA. CT DOSE: 233.03 mGy.cm FINDINGS: No pulmonary emboli are identified. However, multiple pulmonary arteries are distorted and narrowed by extensive mediastinal and hilar lymphadenopathy. Note is made of a large heterogeneous p artially necrotic left upper lobe/left anterior mediastinal mass that measures 11 x 8 cm. This invade s the mediastinum and extends into the left anterior chest wall. Extensive associated lymphadenopathy is present including a left supraclavicular lymph node that measures 3.5 x 3.2 cm. A right supraclav icular lymph node measures 2 x 1.5 cm. This node has significant mass effect upon the right internal jugular vein. Additional lymph nodes have moderate mass effect upon the superior vena cava which les ins patent. There is occlusion versus severe narrowing of the left brachiocephalic vein due to lympha denopathy. Index right paratracheal lymph node measures 4.6 x 3.8 cm. Numerous pulmonary lesions are noted, including a necrotic 6.4 cm left lower lobe mass. Index right lower lobe lesions measure up to 1.8 cm. Moderate emphysema is present. A moderate left pleural effusion is present. Multifocal airwa y narrowing versus occlusion is noted, including occlusion versus narrowing of the left lower lobe br onchi with extensive left lower lobe airspace opacity. There is occlusion of the proximal left upper lobe bronchus and suspected extensive secretions versus short segment occlusion of the left lower lob e bronchus. Extensive secretions within right lower lobe airways are present. No suspicious lesions a re identified within the visualized bony thorax. Mild cardiomegaly is noted. There is extensive coron jeronimo artery calcification. A small pericardial effusion is present. A 2.1 cm focus within the left hep atic lobe contains linear enhancement. This could reflect a hemangioma or represent collaterals relat ed to venous stenosis within the chest. IMPRESSION: 1. Large necrotic left upper lobe/left anterior mediastinal mass that measures 11 x 8 cm. This is sug gestive of a central bronchogenic carcinoma. Extensive mediastinal invasion and lymphadenopathy with multifocal venous and airway stenosis/occlusion, as described above. Pulmonary consultation is recomm ended. 2. 6.4 cm necrotic left lower lobe mass and numerous smaller pulmonary metastases. 3. Moderate left pleural effusion. 4. No pulmonary emboli identified. 5. Emphysema. ACT 112: Positive. There are findings on this exam that require communication between the performing entity and the patient following Patient Test Result [place] Act [place] Act 112[place] guidelines. Electronically signed by: Adams Rosas M.D. 08/18/2021 9:13 PM
[2021-08-18] MEDS ORDERED: LACTATED RINGER'S 1,000 ML IV ONE ×2 (21:45→23:28)
[2021-08-18] MEDS ORDERED: POTASSIUM CHLORIDE CRTAB 20 MEQ TABCR PO STA (21:46)
--- NOTE | 2021-08-18 22:30 | History & Physical Report ---
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 intake, home medications versus hypercalcemia malignancy hyperlipidemia on statin Rx prediabetes, hemoglobin A1c from 2011 was 6 past tobacco abuse PCU given pericardial effusion Supplemental O2 Baseline ABG CS, Unasyn Nebs RTC, prednisone course for possible concomitant COPD exacerbation given emphysematous lungs on x-ray (Patient with faint expiratory wheezes on exam prior to neb treatment as per ER provider.) Pulmonary consult Re: Respiratory failure, abnormal CT chest Aspiration precautions, swallow eval TTE Re: Pericardial effusion Monitor serum calcium response to IVF Hypercalcemia work-up Hold calcium supplements and HCTZ for now Nephrology consult if serum calcium does not respond to IVF. Update hemoglobin A1c DVT prophylaxis. Lovenox subcu Full code Patient requests for her granddaughter to be updated of plan of care. Ms. Wandy Mart, contact #[phone]. Text document was generated using [employer] voice recognition software. It may contain grammatical or spelling errors. Kindly contact undersigned for clarification of any documentation item in question. History of Present Illness Chief Complaint: Shortness of breath, weight loss, hoarseness Primary Care Provider: Vernon Hodge MD History obtained from patient, family, and records. Medical history significant for hypertension, hyperlipidemia, prediabetes, past tobacco abuse. Few weeks history of weight loss, poor appetite. No abdominal pain complaints. No headache symptoms. A week ago, patient hoarseness, sore throat, cough symptoms associated with mucus going down the back of her throat. No chest pain, no shortness of breath, no fluid retention. No known sick contacts. Patient completed COVID-19 vaccination. Patient seen at PCP's office. Symptoms attributed to postnasal drip for which Flonase was prescribed. No improvement of symptoms with Flonase prescription. Worsening junky cough although patient unable to expectorate followed by shortness of breath. No chest pain. Patient admits to coughing symptoms from time to time with water/food intake. O2 sats 80s upon arrival at the ER. Dropped to 60s when patient laid down on CAT scan. Patient received Ceftriaxone, Solu-Medrol and neb treatment at the ER. Patient currently feeling much better. 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 Allergies Allergy/AdvReac Type Severity Reaction Status Date / Time naproxen Allergy Intermediate HIVES Verified 08/18/21 19:59 Home Medications Medication Instructions Recorded Confirmed Type ascorbic acid (vitamin C) 1,000 mg 1,000 mg PO QAM 06/25/18 08/18/21 History tablet (Vitamin C) aspirin 81 mg tablet,delayed 81 mg PO QAM 06/25/18 08/18/21 History release calcium carbonate 500 mg-vitamin 2 tab PO QAM 06/25/18 08/18/21 History D3 5 mcg (200 unit) tablet (Os-Reji 500 + D3) carboxymethylcellulose sodium 1 drp OPB DAILY PRN 06/25/18 08/18/21 History cholecalciferol (vitamin D3) 25 1,000 unit PO QAM 06/25/18 08/18/21 History mcg (1,000 unit) capsule (Vitamin D3) cyanocobalamin (vitamin B-12) 1,000 mcg PO QAM 06/25/18 08/18/21 History 1,000 mcg tablet (Vitamin B-12) cyclosporine 0.05 % eye drops in a 1 drp OPB BID 06/25/18 08/18/21 History dropperette (Restasis) erythromycin with ethanol 2 % 1 applic TOPICAL QAM 06/25/18 08/18/21 History topical solution glucosamine sulfate 1,000 mg 2,000 mg PO BID 06/25/18 08/18/21 History capsule hydrochlorothiazide 25 mg tablet 25 mg PO QAM 06/25/18 08/18/21 History multivitamin 1 tab PO QAM 06/25/18 08/18/21 History omega 3 350 mg-dha 235 mg-epa 90 1 cap PO PM 06/25/18 08/18/21 History mg-fish oil 597 mg capsule,delay rel ([place]-3) atorvastatin 20 mg tablet 20 mg PO HS 08/18/21 08/18/21 History Past Med/Surg History Medical History (Updated 08/18/21 @ 23:49 by Pablito Tejada DO) No known health problems Family History Other No pertinent family history Social History Smoking Status: Current every day smoker Tobacco Type: Cigarettes Hx Alcohol Use: No Hx Substance Use: No Preferred Language: Sri Lankan Communication Ability: Effective 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 Beliefs That Will Affect Care: None Current Living Situation: Alone Other Information That Helps Us Care for You: No Feels Safe at Home: Yes Safety Concerns: Feels Safe At This Time Assistive Devices: Denture - Upper and Glasses Review of Systems Review of Systems: As per HPI, all other systems reviewed and negative Physical Exam Physical Exam: GENERAL: Comfortable, dysphonic, slightly anxious, underweight, no stridor, no respiratory distress SKIN: Normal color, warm HEENT: [place] palpebral conjunctivae, no ptosis, dry buccal mucosa, nasal cannula in place NECK : Supple, distended neck veins, palpable nontender cervical adenopathy, no tenderness CHEST : Decreased breath sounds, no tenderness HEART : Tachycardic, no obvious murmurs ABDOMEN: no distention, nontender EXTREMITIES : No LE swelling/tenderness, no other conspicuous deformities noted NEUROLOGIC : Coherent, no facial asymmetry, dysphonic, no other gross focality Results & Data Results & Data ([facility]) Vital Signs (Past 12 Hours) Vital Signs Temp Pulse Pulse Resp BP BP Pulse Ox 08/18/21 20:53 98 08/18/21 20:45 68 L 08/18/21 19:48 110 H 18 126/72 99 08/18/21 19:14 109 H 16 98 08/18/21 19:08 97 H 18 98 08/18/21 18:28 36.7 C 132 H 30 H 130/76 81 L Laboratory Results Laboratory Results WBC 13.46 K/uL (4.8-10.8) H 08/18/21 18:56 RBC 4.68 M/uL (4.2-5.4) 08/18/21 18:56 Hgb 13.0 g/dL (12.0-16.0) 08/18/21 18:56 Hct 39.4 % (37-47) 08/18/21 18:56 MCV 84.2 fL (80-100) 08/18/21 18:56 MCH 27.8 pg (25-34) 08/18/21 18:56 MCHC 33.0 g/dL (32-36) 08/18/21 18:56 RDW Std Deviation 42.6 fL (36.4-46.3) 08/18/21 18:56 RDW Coeff of Miguel 14.0 % (11.5-14.5) 08/18/21 18:56 Plt Count 439 K/uL (130-400) H 08/18/21 18:56 MPV 10.0 fL (7.4-10.4) 08/18/21 18:56 Immature Gran % (Auto) 0.7 % 08/18/21 18:56 Neut % (Auto) 84.2 % 08/18/21 18:56 Lymph % (Auto) 6.7 % 08/18/21 18:56 [place] % (Auto) 8.2 % 08/18/21 18:56 Eos % (Auto) 0.1 % 08/18/21 18:56 Baso % (Auto) 0.1 % 08/18/21 18:56 Neut # (Auto) 11.34 K/uL (1.4-6.5) H 08/18/21 18:56 Lymph # (Auto) 0.90 K/uL (1.2-3.4) L 08/18/21 18:56 [place] # (Auto) 1.10 K/uL (0.11-0.59) H 08/18/21 18:56 Eos # (Auto) 0.02 K/uL (0-0.5) 08/18/21 18:56 Baso # (Auto) 0.01 K/uL (0-0.2) 08/18/21 18:56 Immature Gran # (Auto) 0.09 K/uL (0.00-0.02) H 08/18/21 18:56 Sodium 140 mmol/L (136-145) 08/18/21 18:56 Potassium 3.7 mmol/L (3.5-5.1) 05/23/22 18:56 Chloride 98 mmol/L (98-107) 08/18/21 18:56 Carbon Dioxide 32 mmol/L (21-32) 08/18/21 18:56 Anion Gap 10 (3-11) 08/18/21 18:56 BUN 29 mg/dl (6-23) H 08/18/21 18:56 Creatinine 0.58 mg/dl (0.6-1.2) L 08/18/21 18:56 Est Cr Clr Drug Dosing 71.0 ml/min 08/18/21 18:56 Est GFR ( Amer) 108.2 ml/min 08/18/21 18:56 Est GFR (Non-Af Amer) 93.4 ml/min 08/18/21 18:56 BUN/Creatinine Ratio 50.0 (10-20) H 08/18/21 18:56 Glucose 149 mg/dl (70-99(Fasting)) H 08/18/21 18:56 Calcium 10.7 mg/dl (8.5-10.1) H 08/18/21 18:56 Total Bilirubin 0.7 mg/dl (0.2-1.0) 08/18/21 18:56 AST 26 U/L (13-39) 08/18/21 18:56 ALT 28 U/L (7-52) 08/18/21 18:56 Alkaline Phosphatase 101 U/L (34-104) 08/18/21 18:56 Troponin I High Sens 11.1 pg/ml (0-14) 08/18/21 18:56 Total Protein 6.3 gm/dl (6.0-8.3) 08/18/21 18:56 Albumin 3.4 gm/dl (3.4-5.0) 08/18/21 18:56 Globulin 2.9 gm/dl (2.5-4.0) 08/18/21 18:56 Albumin/Globulin Ratio 1.2 (0.9-2) 08/18/21 18:56 Lipase 22 U/L (11-82) 08/18/21 18:56 SARS-CoV-2 (PCR) NEGATIVE (Negative) 08/18/21 19:05 Influenza Type A (PCR) Negative (Neg) 08/18/21 19:05 Influenza Type B (PCR) Negative (Neg) 08/18/21 19:05 RSV (RT-PCR) Negative (Neg) 08/18/21 19:05 Impressions Chest X-Ray 08/18/21 18:37 XR chest 1V portable CLINICAL HISTORY: Atypical chest pain. COMPARISON STUDY: Chest radiograph June 25, 2018. FINDINGS: There is no pneumothorax. Moderate left and small right pleural ef fusions are noted. Left hilar/suprahilar mass-like opacities are present. Mediastinal widening is new since prior examination. There may be mild pulmonary edema. IMPRESSION: 1. Left hilar and suprahilar mass-like opacities. The findings are concerning for a mass with left hilar adenopathy. A chest CT with contrast is recommended for further evaluation. 2. Mediastinal widening which may also reflect lymphadenopathy. 3. Moderate left and small right pleural effusions. 4. Possible mild pulmonary edema. ACT 112: Positive. There are findings on this exam that require communication between the performing entity and the patient following Patient Test Result [place] Act [place] Act 112[place] guidelines. Electronically signed by: Adams Rosas M.D. 08/18/2021 7:07 PM Chest CTA 08/18/21 19:13 CT ANGIOGRAPHY OF THE CHEST, PULMONARY EMBOLUS PROTOCOL CLINICAL HISTORY: Atypical chest pain. Abnormal chest radiograph. COMPARISON STUDY: Chest radiograph performed earlier today. TECHNIQUE: Following IV administration of 120 mL of Optiray, helical axial images of the chest were obtained utilizing the pulmonary embolus protocol. Maximal intensity projections and sagittal and coronal reformats were viewed on an independent 3D workstation. IV contrast was administered without complication. Automated exposure control was utilized for the study. A dose lowering technique was utilized adhering to the principles of ALARA. CT DOSE: 233.03 mGy.cm FINDINGS: No pulmonary emboli are identified. However, multiple pulmonary arteries are distorted and narrowed by extensive mediastinal and hilar lymphadenopathy. Note is made of a large heterogeneous partially necrotic left upper lobe/left anterior mediastinal mass that measures 11 x 8 cm. This invades the mediastinum and extends into the left anterior chest wall. Extensive associated lymphadenopathy is present including a left supraclavicular lymph node that measures 3.5 x 3.2 cm. A right supraclavicular lymph node measures 2 x 1.5 cm. This node has significant mass effect upon the right internal jugular vein. Additional lymph nodes have moderate mass effect upon the superior vena cava which remains patent. There is occlusion versus severe narrowing of the left brachiocephalic vein due to lymphadenopathy. Index right paratracheal lymph node measures 4.6 x 3.8 cm. Numerous pulmonary lesions are noted, including a necrotic 6.4 cm left lower lobe mass. Index right lower lobe lesions measure up to 1.8 cm. Moderate emphysema is present. A moderate left pleural effusion is present. Multifocal airway narrowing versus occlusion is noted, including occlusion versus narrowing of the left lower lobe bronchi with extensive left lower lobe airspace opacity. There is occlusion of the proximal left upper lobe bronchus and suspected extensive secretions versus short segment occlusion of the left lower lobe bronchus. Extensive secretions within right lower lobe airways are present. No suspicious lesions are identified within the visualized bony thorax. Mild cardiomegaly is noted. There is extensive coronary artery calcification. A small pericardial effusion is present. A 2.1 cm focus within the left hepatic lobe contains linear enhancement. This could reflect a hemangioma or represent collaterals related to venous stenosis within the chest. IMPRESSION: 1. Large necrotic left upper lobe/left anterior mediastinal mass that measures 11 x 8 cm. This is suggestive of a central bronchogenic carcinoma. Extensive mediastinal invasion and lymphadenopathy with multifocal venous and airway stenosis/occlusion, as described above. Pulmonary consultation is recommended. 2. 6.4 cm necrotic left lower lobe mass and numerous smaller pulmonary metastases. 3. Moderate left pleural effusion. 4. No pulmonary emboli identified. 5. Emphysema. ACT 112: Positive. There are findings on this exam that require communication between the performing entity and the patient following Patient Test Result Information Act ([place] Act 112) guidelines. Electronically signed by: Adams Rosas M.D. 08/18/2021 9:13 PM Diagnostic Findings EKG as per my interpretation: Rate 115, sinus tachycardia, RAD, no ischemia, low voltage
[2021-08-18 22:31] LABS: Magnesium 1.8 mg/dl (1.7-2.4); Phosphorus 3.5 mg/dl (2.5-4.9)
[2021-08-18] MEDS ORDERED: AMPICILLIN/SULBACTAM SOD 3,000 MG in 0.9 % SODIUM CHLORIDE 100 ML IV STA (22:36)
[2021-08-18 23:02] LABS: Base Excess ABG 2.5 mEq/L (-9-1.8); HCO3 ABG 29 mmol/L (19-24); Oxygen Saturation ABG 90.4 % (90-95); PCO2 ABG 51 mmHg (35-46); PO2 ABG 61 mmHg (80-95); pH ABG 7.37 (7.35-7.45)
[2021-08-18 23:08] LABS: Allen Test Pos (Pos)
[2021-08-18] MEDS ORDERED: LEVALBUTEROL 1.25MG/0.5ML NEB INH SCH (23:37)
[2021-08-18] MEDS ORDERED: IPRATROPIUM BROMIDE NEB SOLN 0.02% 2.5 ML VIAL INH SCH (23:37)
[2021-08-18] MEDS ORDERED: PROMETHAZINE HCL 6.25 MG in SODIUM CHLORIDE 0.9% 50 ML IV PRN (23:37)
[2021-08-18] MEDS ORDERED: ACETAMINOPHEN 325 MG TAB PO PRN (23:37)
[2021-08-18] MEDS ORDERED: traMADol HCL 50 MG TABLET PO PRN (23:37)
[2021-08-19] MEDS: IPRATROPIUM BROMIDE NEB SOLN 0.02% 2.5 ML VIAL INH SCH ×4 (00:31→19:34)
[2021-08-19] MEDS: LEVALBUTEROL 1.25MG/0.5ML NEB INH SCH ×4 (00:32→19:34)
[2021-08-19] MEDS ORDERED: XOPENEX/ATROVENT 1.25mg/0.5MG NEB COMBO NEB SCH (01:00)
[2021-08-19] MEDS ORDERED: ARTIFICIAL TEARS OP PRN (01:21)
[2021-08-19] MEDS ORDERED: AMPICILLIN/SULBACTAM CONSULT ACTIVE PRN (01:23)
[2021-08-19] MEDS ORDERED: MAGNESIUM SULFATE / D5W 1 GM/100 ML BAG IV ONE (01:32)
[2021-08-19] MEDS: AMPICILLIN/SULBACTAM SOD 3,000 MG in 0.9 % SODIUM CHLORIDE 100 ML IV SCH ×4 (05:10→23:04)
[2021-08-19 06:07] LABS: Hematocrit (blood only) 37.1 % (37-47); Hemoglobin 11.7 g/dL (12.0-16.0); Immature Granulocytes # (auto) 0.07 K/uL (0.00-0.02); Immature Granulocytes % (auto) 0.5 %; Lymphocytes # (auto) 0.91 K/uL (1.2-3.4); Lymphocytes % (auto) 6.8 %; Mean Corpuscular Hemoglobin 26.8 pg (25-34); Mean Corpuscular Hgb Conc 31.5 g/dL (32-36); Mean Corpuscular Volume 85.1 fL (80-100); Mean Platelet Volume 9.7 fL (7.4-10.4); Monocytes # (auto) 0.28 K/uL (0.11-0.59); Monocytes % (auto) 2.1 %; Neutrophils # (auto) 12.14 K/uL (1.4-6.5); Neutrophils % (auto) 90.6 %; Platelet Count 380 K/uL (130-400); RDW Coefficient of Variation 14.1 % (11.5-14.5); RDW Standard Deviation 43.4 fL (36.4-46.3); Red Blood Count 4.36 M/uL (4.2-5.4)
[2021-08-19 06:39] LABS: BUN Creatinine Ratio 46.4 (10-20); Calcium 9.4 mg/dl (8.5-10.1); Creatinine Clr Calc Pharmacy 73.8 ml/min; Est GFR (African American) 109.5 ml/min; Est GFR (Non-African American) 94.5 ml/min; Potassium 4.1 mmol/L (3.5-5.1)
[2021-08-19] MEDS: MULTIVITAMIN TAB PO SCH (07:42)
[2021-08-19] MEDS: predniSONE 20 MG TAB PO SCH (07:42)
[2021-08-19] MEDS: ASPIRIN 81 MG ECTAB PO SCH (07:42)
--- NOTE | 2021-08-19 08:51 | Pulmonary Consultation ---
Date of Consultation August 19, 2021 Assessment & Plan (1) Pulmonary mass: (2) Hypoxia: (3) Breath shortness: (4) Pleural effusion on left: 71-year-old female with a past medical history of tobacco abuse presenting with multiple lung masses and weight loss. Most likely differential of the lung masses include malignancy. We will perform a bronchoscopy/EBUS tomorrow to obtain a pathological tissue diagnosis. We will also obtain MRI of the brain today for staging purposes. May need a PET/CT as an outpatient. Additionally, she does have a pleural effusion. We will consider performing thoracentesis of the left pleural effusion in the [facility] suite. Reasonable to continue broad-spectrum antibiotics at this time for postobstructive pneumonia. Thank you for allowing us to participate in the care of this patient. We will continue to follow with you. History of Present Illness Reason for Consultation: Large left upper lobe and anterior mediastinal mass. Attending Physician: Edel Santiago MD History of Present Illness 71-year-old female with a past medical history of tobacco abuse and hyperlipidemia presenting to the hospital due to increasing shortness of breath. Patient notes that she has had weakness loss of appetite for the past month or 2. She notes that she has lost 20 pounds over the past 6 weeks. She denies any fevers or chills. Denies any headaches. No chest pain. She underwent a chest CT on 08/18/2021 which revealed 11.8 cm left upper lobe/mediastinal mass and a 6.4 necrotic left lower lobe mass. Moderate emphysema was noted. There is also moderate left pleural effusion seen as well. Today she is laying in bed and comfortable. She has a nasal cannula in place and saturating the low 90s. Labs reviewed with mild leukocytosis seen of 13,400. Platelet count within normal limits. Electrolytes and chemistries within normal limits aside for moderately elevated bicarbonate level of 36. COVID-19 and influenza testing was negative. ABG performed 08/18/2021 demonstrated chronic hypercapnic respiratory failure with a PCO2 of 51. She is currently on Unasyn and lactated Ringer's. She was also started on 20 mg of prednisone daily. Allergies Allergy/AdvReac Type Severity Reaction Status Date / Time naproxen Allergy Intermediate HIVES Verified 08/18/21 19:59 Home Medications Medication Instructions Recorded Confirmed Type ascorbic acid (vitamin C) 1,000 mg 1,000 mg PO QAM 03/30/19 05/23/22 History tablet (Vitamin C) aspirin 81 mg tablet,delayed 81 mg PO QAM 06/25/18 08/18/21 History release calcium carbonate 500 mg-vitamin 2 tab PO QAM 06/25/18 08/18/21 History D3 5 mcg (200 unit) tablet (Os-Reji 500 + D3) carboxymethylcellulose sodium 1 drp OPB DAILY PRN 06/25/18 08/18/21 History cholecalciferol (vitamin D3) 25 1,000 unit PO QAM 06/25/18 08/18/21 History mcg (1,000 unit) capsule (Vitamin D3) cyanocobalamin (vitamin B-12) 1,000 mcg PO QAM 06/25/18 08/18/21 History 1,000 mcg tablet (Vitamin B-12) cyclosporine 0.05 % eye drops in a 1 drp OPB BID 06/25/18 08/18/21 History dropperette (Restasis) erythromycin with ethanol 2 % 1 applic TOPICAL QAM 06/25/18 08/18/21 History topical solution glucosamine sulfate 1,000 mg 2,000 mg PO BID 06/25/18 08/18/21 History capsule hydrochlorothiazide 25 mg tablet 25 mg PO QAM 06/25/18 08/18/21 History multivitamin 1 tab PO QAM 06/25/18 08/18/21 History omega 3 350 mg-dha 235 mg-epa 90 1 cap PO PM 06/25/18 08/18/21 History mg-fish oil 597 mg capsule,delay rel ([place]-3) atorvastatin 20 mg tablet 20 mg PO HS 08/18/21 08/18/21 History Patient History Medical History (Updated 08/19/21 @ 08:50 by Jelani Horowitz MD) No known health problems Pleural effusion on left Family History Other No pertinent family history Social History Smoking Status: Current every day smoker Tobacco Type: Cigarettes Hx Alcohol Use: No Hx Substance Use: No Preferred Language: Somali Communication Ability: Effective It Administrator Required: No Beliefs That Will Affect Care: None Current Living Situation: Alone Other Information That Helps Us Care for You: No Feels Safe at Home: Yes Safety Concerns: Feels Safe At This Time Assistive Devices: Denture - Upper and Glasses Review of Systems Review of Systems: All systems reviewed & are unremarkable except as noted in HPI & below Physical Exam Constitutional: WD/WN, vitals as above Thin appearing female Eyes: PERRL, conjunctivae normal, anicteric sclerae ENMT: external ear and nose normal, oropharynx normal Neck: trachea midline, no thyromegaly Respiratory: Diminished lung sounds bilaterally with prolonged phase of exhalation. No wheezes. Cardiovascular: RRR, no murmur, no edema Gastrointestinal (Abdomen): normal bowel sounds, soft, nontender, no hepatosplenomegaly Musculoskeletal: no cyanosis or clubbing, extremities motor strength 5/5 Skin: no rashes, warm and dry Neurologic: PERRL, EOMI, accommodation nl, no face palsy, no dysarthria Psychiatric: A+Ox3, euthymic affect Results & Data Results & Data ([facility]) Vital Signs (Past 12 Hours) Vital Signs Temp Pulse Pulse Resp BP BP Pulse Ox 08/19/21 08:10 36.8 C 96 H 19 115/68 91 08/19/21 07:22 91 H 08/19/21 07:12 92 H 18 94 08/19/21 04:50 36.9 C 101 H 18 125/68 91 08/19/21 00:32 106 H 18 94 08/19/21 00:14 105 H 08/18/21 23:30 36.8 C 113 H 20 146/78 H 95 08/18/21 20:53 98 08/18/21 20:45 68 L PG Care Time/CCT Total # of Minutes Spent Total Time Spent with Patient: Total time spent is greater than 50% in coordination of care (as documented) at patient's floor/unit and/or counseling patient: Coding Level of Care Code 83909 Initial Inpt Care Lvl 3 Diagnoses Pulmonary mass R91.8 Hypoxia R09.02 Breath shortness R06.02 Pleural effusion on left J90
[2021-08-19] MEDS ORDERED: ENOXAPARIN INJ 30 MG/0.3 ML SYR SQ SCH (09:00)
[2021-08-19] MEDS ORDERED: GADOBUTROL 65ML VIAL IV ONE (10:36)
--- NOTE | 2021-08-19 11:08 | Magnetic Resonance Report ---
Brain MRI WITH AND WITHOUT CONTRAST HISTORY: Possible lung cancer. Evaluate for intracranial metastatic disease. TECHNIQUE: Multiplanar multisequence MRI of the brain was performed both before and after the intrave nous administration of contrast. COMPARISON STUDY: None. FINDINGS: There is no mass, hematoma, midline shift, or acute infarct. The paranasal sinuses are elodia r. The mastoid air cells are clear. The ventricles and sulci demonstrate mild age-related involutiona l changes. Scattered foci of T2 hyperintensity seen within the periventricular and subcortical white matter are nonspecific but suggestive of moderate microvascular ischemic changes. The major vascular flow voids at the skull base are well-maintained. No abnormal enhancement. IMPRESSION: No evidence for intracranial metastatic disease. ACT 112: Negative or not required by law. Electronically signed by: Ajit Victor M.D. 08/19/2021 11:07 AM
--- NOTE | 2021-08-19 14:45 | Electrocardiogram Report ---
Test Reason : Blood Pressure : / mmHG Vent. Rate : 114 BPM Atrial Rate : 114 BPM P-R Int : 134 ms QRS Dur : 084 ms QT Int : 316 ms P-R-T Axes : 070 093 054 degrees QTc Int : 435 ms Sinus tachycardia Left atrial enlargement Rightward axis Low voltage QRS Borderline ECG No previous ECGs available Confirmed by Abraham Mehta ([id number]) on 08/19/2021 2:44:55 PM Referred By: REFERRED SELF Confirmed By:Abraham Mehta
--- NOTE | 2021-08-19 15:45 | Hospitalist Progress Note ---
Date of Service August 19, 2021 Assessment & Plan (1) Pulmonary mass: Plan: #. Lung mass on imaging likely bronchogenic malignancy #. Acute hypoxemic respiratory failure #. Postobstructive pneumonia #. Sepsis POA: WBC and pulse rate at presentation elevated. #. Left pleural effusion #. Small pericardial effusion Patient has been smoking since age 16, does not use home oxygen, does not have established lung doctor as an outpatient per her, does not have trouble swallowing food. Patient reports dyspnea with exertion since 1 week [employer], worsening voice for quite some time. 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 6.4 cm necrotic left lower lobe mass and numerous smaller pulmonary metastasis. Moderate left pleural effu jeronimo. No PE. Emphysema. Small pericardial effusion. Brain MRI with no evidence for intracranial metastatic disease. Continue with Unasyn 08/19, supplemental oxygen, titrate as tolerated. Continue with nebs RTC, prednisone course for possible concomitant COPD exacerbation given emphysematous lungs on x-ray. Aspiration precaution, swallow eval. Follow echo for pericardial effusion. Pulmonology evaluated, n.p.o. midnight, bronchoscopy/EBUS tomorrow for pathological diagnosis of lung mass. Likely left thoracentesis. #. Other chronic medical conditions: HTN, HLD, prediabetes Continue with/resume home meds as and when appropriate. Patient's calcium supplement and HCTZ on hold due to elevated calcium level at presentation, resume when able. DVT prophylaxis: Lovenox subcu on hold, likely bronch and biopsy isi. Full code Patient's granddaughter Ms. Wandy Mart, contact #[phone] Admission and Anticipated Discharge Date Admission Date: August 18, 2021 Subjective Patient seen and examined at bedside as a follow-up of hypoxemic respiratory failure, likely postobstructive pneumonia and lung mass on imaging likely bronchogenic malignancy. Patient was lying in bed, on 3 L nasal cannula oxygen, NAD, no new acute events overnight. Patient reports eating better here. Patient denies any headache or dizziness. Patient reports moving bowels okay. Patient denies any belly pain or acute changes in bowel or bladder habit. Patient denies any problem swallowing food. Patient has been smoking since age 16. Patient has been trying to quit smoking as per her. Patient does not have any lung doctor established as an outpatient. Physical Exam Physical Exam: GENERAL: Alert and oriented x3. NAD, on 3 L nasal cannula oxygen HEENT: No pallor, no icterus. Pupils equal, round and reactive to light. Oral mucosa moist. NECK: No JVD, no neck masses. HEART: S1 and S2 heard. Tachycardic. No murmur, no gallop. RESPIRATORY SYSTEM: Normal AP diameter. No accessory muscle use. No wheezing, no crackles. RLL increased breath sound, LLL decreased breath sound. ABDOMEN: Soft, bowel sounds present, nontender, no distention. CENTRAL NERVOUS SYSTEM: No facial droop. Speech is clear. Obeys simple commands. Moves extremities. EXTREMITIES: No edema, no erythema seen. Results & Data Results & Data ([facility]) Vital Signs (Past 12 Hours) Vital Signs Temp Pulse Pulse Resp BP Pulse Ox 08/19/21 15:15 103 H 08/19/21 12:49 87 16 93 08/19/21 11:55 36.9 C 91 H 19 104/59 L 94 08/19/21 08:10 36.8 C 96 H 19 115/68 91 08/19/21 07:22 91 H 08/19/21 07:12 92 H 18 94 08/19/21 04:50 36.9 C 101 H 18 125/68 91
[2021-08-19 18:17] LABS: Appearance Urine Clear (Clear); Bacteria Urine Automated Negative (Negative); Bilirubin Urine Negative (Negative); Blood Urine Negative (Negative); Color Urine Yellow; Epithelial Cell Urine Auto >30 /lpf (0-5); Glucose Urine UA Negative (Negative); Ketones Urine Trace (Negative); Leukocyte Esterase Urine Negative (Negative); Nitrite Urine Negative (Negative); Protein Urine 1+ (Negative); RBC Urine Automated 0-4 /hpf (0-4); Specific Gravity Urine 1.037 (1.000-1.030); Urobilinogen Urine Negative (Negative)
[2021-08-19] MEDS: ATORVASTATIN 20 MG TAB PO SCH (20:27)
[2021-08-19] MEDS: CYCLOSPORINE OP SCH (20:28)
[2021-08-20] MEDS: LEVALBUTEROL 1.25MG/0.5ML NEB INH SCH ×4 (00:36→19:35)
[2021-08-20] MEDS: IPRATROPIUM BROMIDE NEB SOLN 0.02% 2.5 ML VIAL INH SCH ×4 (00:36→19:35)
[2021-08-20] MEDS: AMPICILLIN/SULBACTAM SOD 3,000 MG in 0.9 % SODIUM CHLORIDE 100 ML IV SCH ×4 (05:30→23:34)
[2021-08-20 06:25] LABS: Hematocrit (blood only) 34.8 % (37-47); Mean Corpuscular Hemoglobin 27.6 pg (25-34); Mean Corpuscular Hgb Conc 31.6 g/dL (32-36); Mean Corpuscular Volume 87.2 fL (80-100); Mean Platelet Volume 9.8 fL (7.4-10.4); Platelet Count 368 K/uL (130-400); RDW Coefficient of Variation 14.2 % (11.5-14.5); RDW Standard Deviation 45.7 fL (36.4-46.3); Red Blood Count 3.99 M/uL (4.2-5.4); White Blood Count 14.82 K/uL (4.8-10.8)
[2021-08-20 06:38] LABS: BUN Creatinine Ratio 51.3 (10-20); Calcium 8.9 mg/dl (8.5-10.1); Creatinine Clr Calc Pharmacy 110.8 ml/min; Est GFR (African American) 123.3 ml/min; Est GFR (Non-African American) 106.4 ml/min; Magnesium 1.9 mg/dl (1.7-2.4); Phosphorus 1.9 mg/dl (2.5-4.9); Potassium 4.4 mmol/L (3.5-5.1)
[2021-08-20 07:39] LABS: Estimated Average Glucose 146 mg/dl; Hemoglobin A1C 6.7 % (4.5-5.6)
[2021-08-20] MEDS: ASPIRIN 81 MG ECTAB PO SCH (08:19)
[2021-08-20] MEDS: predniSONE 20 MG TAB PO SCH (08:24)
[2021-08-20] MEDS: MULTIVITAMIN TAB PO SCH (08:24)
[2021-08-20] MEDS: CYCLOSPORINE OP SCH ×2 (08:24→20:02)
--- NOTE | 2021-08-20 10:45 | Pulmonology Progress Note ---
Date of Service August 20, 2021 Assessment & Plan (1) Pulmonary mass: (2) Hypoxia: (3) Breath shortness: (4) Pleural effusion on left: Plan: 71-year-old female with a past medical history of tobacco abuse presenting with multiple lung masses and weight loss. Most likely differential of the lung masses include malignancy. We will perform a bronchoscopy/EBUS tomorrow to obtain a pathological tissue diagnosis. MRI brain negative. May need a PET/CT as an outpatient. Additionally, she does have a pleural effusion. We will consider performing thoracentesis of the left pleural effusion in the [facility] suite. Reasonable to continue broad-spectrum antibiotics at this time for postobstructive pneumonia. Thank you for allowing us to participate in the care of this patient. We will continue to follow with you. Admission and Anticipated Discharge Date Admission Date: August 18, 2021 Subjective Patient seen and examined. NPO. Denies any complaints presently. Anxious about undergoing her procedure. Continues to have dyspnea. Review of Systems Review of Systems: All systems reviewed & are unremarkable except as noted in HPI & below Physical Exam Constitutional: WD/WN, vitals as above Thin appearing female Eyes: PERRL, conjunctivae normal, anicteric sclerae ENMT: external ear and nose normal, oropharynx normal Neck: trachea midline, no thyromegaly Respiratory: Diminished lung sounds bilaterally with prolonged phase of ex halation. No wheezes. Cardiovascular: RRR, no murmur, no edema Gastrointestinal (Abdomen): normal bowel sounds, soft, nontender, no hepatosplenomegaly Musculoskeletal: no cyanosis or clubbing, extremities motor strength 5/5 Skin: no rashes, warm and dry Neurologic: PERRL, EOMI, accommodation nl, no face palsy, no dysarthria Psychiatric: A+Ox3, euthymic affect Results & Data Results & Data ([facility]) Vital Signs (Past 12 Hours) Vital Signs Temp Pulse Pulse Resp BP Pulse Ox 08/20/21 08:14 36.7 C 106 H 20 120/72 90 08/20/21 07:09 104 H 18 93 08/20/21 07:06 96 H 08/20/21 02:55 36.9 C 100 H 20 122/79 93 08/20/21 00:36 107 H 16 90 08/20/21 00:03 107 H 08/19/21 23:05 36.9 C 83 16 163/66 H 92 PG Care Time/CCT Total # of Minutes Spent Total Time Spent with Patient: Total time spent is greater than 50% in coordination of care (as documented) at patient's floor/unit and/or counseling patient: Coding Level of Care Code 51782 Subseq Hosp Care Lvl 2 Diagnoses Pulmonary mass R91.8 Hypoxia R09.02 Breath shortness R06.02 Pleural effusion on left J90
[2021-08-20] MEDS ORDERED: fentaNYL citrate 100 MCG/2 ML VIAL ONE (11:20)
[2021-08-20] MEDS ORDERED: MIDAZOLAM HCL 5 MG/ML 1 ML VIAL ONE (11:20)
--- NOTE | 2021-08-20 11:49 | Pre Anesthesia Assessment ---
Date of Service August 20, 2021 Pre Sedation Assessment Vital Signs Temp Pulse Pulse Resp BP BP Pulse Ox 08/20/21 10:56 36.7 C 95 H 16 100/65 92 08/20/21 08:14 36.7 C 106 H 20 120/72 90 08/20/21 07:09 104 H 18 93 08/20/21 07:06 96 H 08/20/21 02:55 36.9 C 100 H 20 122/79 93 08/20/21 00:36 107 H 16 90 08/20/21 00:03 107 H 08/19/21 23:05 36.9 C 83 16 163/66 H 92 08/19/21 20:03 36.9 C 106 H 22 130/55 L 94 08/19/21 19:36 101 H 16 93 08/19/21 15:52 36.8 C 98 H 19 118/65 93 08/19/21 15:15 103 H 08/19/21 12:49 87 16 93 08/19/21 11:55 36.9 C 91 H 19 104/59 L 94 Pre-Sedation Airway Assessment Smoking Status: Current every day smoker Hx Sleep Apnea: No Short, Thick Neck: No Thyromental Distance: < 3.5 Finger Breadths Oral Cavity: + Dentures Mallampati Class: II ASA: ASA3 NPO Status Date of Last Intake of Fluids: 08/20/21 Time of Last Intake of Fluids: 00:00 Last Oral Intake of Fluids Comment: sips with meds Date of Last Intake of Solid Food: 08/20/21 Time of Last Intake of Solid Foods: 00:00 Notes The planned sedation has been discussed with the patient. Informed Consent was obtained. I have identified the patient, determined the appropriateness of sedation and have assessed the patient immediately prior to the procedure. All medicine(s) and interventions are by my order.
--- NOTE | 2021-08-20 12:49 | Post Anesthesia Assessment ---
Date of Service August 20, 2021 Post Sedation Assessment Vital Signs Temp Pulse Pulse Resp BP BP Pulse Ox 08/20/21 12:40 114 H 20 149/77 H 98 08/20/21 12:35 114 H 20 149/77 H 98 08/20/21 12:30 117 H 20 139/75 95 08/20/21 12:25 117 H 20 137/92 92 08/20/21 12:20 119 H 20 148/88 H 92 08/20/21 12:15 119 H 20 159/80 H 88 L 08/20/21 12:10 118 H 22 161/72 H 87 L 08/20/21 12:05 114 H 22 159/74 H 91 08/20/21 12:00 111 H 22 116/58 L 98 08/20/21 11:55 115 H 20 124/69 98 08/20/21 11:50 107 H 20 126/67 98 08/20/21 10:56 36.7 C 95 H 16 100/65 92 08/20/21 08:14 36.7 C 106 H 20 120/72 90 08/20/21 07:09 104 H 18 93 08/20/21 07:06 96 H 08/20/21 02:55 36.9 C 100 H 20 122/79 93 08/20/21 00:36 107 H 16 90 08/20/21 00:03 107 H 08/19/21 23:05 36.9 C 83 16 163/66 H 92 08/19/21 20:03 36.9 C 106 H 22 130/55 L 94 08/19/21 19:36 101 H 16 93 08/19/21 15:52 36.8 C 98 H 19 118/65 93 08/19/21 15:15 103 H Recovery Score Activity: Moves 4 extremities Respiration: Deep Breath/Cough Circulation: +/-20% PreAnes Value Consciousness: Arouseable (by name) Oxygen Saturation: O2 needed for >90% Post Anesthesia Score: 8 Discharge Sedation Level of Care: Fast Track Phase II Post Sedation Plan On clinical assessment, the patient appears to have tolerated the sedation without complications. Patient is recovering as anticipated. Patient will continue to be monitored by nursing and may be discharged when sedation discharge criteria are met per below protocol. Upon Completions of procedure up to 15 minutes continue every 5 minute vital signs and the P.A.R. score; then discharge to a Phase I or Fast Track to Phase II per the following guidelines: * Discharge Patient to appropriate Phase II area if PAR is 8 or greater or return to pre- procedure baseline. The post - procedure orders will be as directed. * If PAR score is less than 8 or not return to pre-procedure baseline then patient will follow Phase I monitoring till PAR is reached for Phase II. The Phase I may be done in procedure room or may call to secure a Phase I area. * If naloxone or flumazenil are used for reversal, hold in Phase I for continued monitoring from when last reversal dose was given for a minimum of 60 minutes or longer pending the nurse and/or physician discretion of patient condition before discharge to Phase II. Please call the Sedation Physician to re-evaluate and complete post-note for discharge to Phase II area. Do NOT discharge from procedure sedation or Phase 1 until post- sedation evaluation note is complete by procedure /sedation MD Sedation Discharge Instructions to be given to the patient at discharge to home.
--- NOTE | 2021-08-20 12:50 | Procedure Note ---
Procedure Note Date of Service August 20, 2021 Note PREOPERATIVE DIAGNOSIS: Lung mass POSTOPERATIVE DIAGNOSIS: Lung mass PROCEDURE PERFORMED: Flexible fiberoptic bronchoscopy with bronchoalveolar lavage and EBUS COMPLICATIONS: None. INDICATION: Evaluate for malignancy PROCEDURE: After obtaining an informed consent, the patient was brought to the Bronchoscopy Suite. The patient had appropriate oxygen, blood pressure, heart rate, and respiratory rate monitoring applied and monitored continuously throughout the procedure. Supplemental oxygen via nasal cannula as per nursing records was applied to the nasopharynx with adequate saturations achieved. Topical anesthesia with nebulized 1% lidocaine was achieved. Subsequent to this, the patient was premedicated with 2 mg of midazolam and 75 mcg of fentanyl. Procedure began at 11:56 AM and ended at 12:45 PM Diagnostic bronchoscope was inserted via the bite block. Epiglottis and vocal cords were visualized. Left vocal cord appeared to be paretic. Scope was introduced. Bloody secretions were noted emanating from the trachea. These were aspirated clear. Bilateral tracheobronchial tree inspection was performed. Airway edema was noted in the left lower lobes and left upper lobe. Washings were performed of the left lower lobe with 60 mL of saline. Approximately 20 mL of fluid was aspirated back. Patient was having trouble with saturations and desaturated to the mid 80s. The scope was withdrawn the patient saturations climbed back into the low 90s. The EBUS scope was then introduced. The 4R station lymph node was visualized and 1 FNA passes was performed. Rapid onsite pathology noted that the specimen was adequate and suspicious for malignancy. Unfortunately, the patient began having significant desaturations to the low 80s and the procedure was aborted. Patient was placed on a nonrebreather and a jaw thrust was applied. Patient's saturations came back up and ultimately the patient was able to follow commands and answer appropriately. Recommendations: Follow-up pathology results. Coding CPT Codes Pulmonary/Thoracic - Pulmonary and Thoracic: 06589 Bronchoscopy, w/EBUS 1 or 2 mediastinal ([id number]) Pulmonary/Thoracic - Pulmonary and Thoracic: 98975 Dx bronchoscopy/wash ([id number]) [facility] [place] Procedure Codes (Charges) Pulmonary/Thoracic Procedure 1: Pulmonary and Thoracic: 84758 Bronchoscopy, w/EBUS 1 or 2 mediastinal Procedure 2: Pulmonary and Thoracic: 44066 Dx bronchoscopy/wash
--- NOTE | 2021-08-20 12:52 | Procedure Note ---
Procedure Note Date of Service August 20, 2021 Note Procedure: Diagnostic and/or therapeutic ultrasound-guided catheter thoracentesis Pattern Fitter: Dr. Jelani Horowitz Indication: Pleural effusion Consent: Signed by patient and verified with timeout prior to procedure Anesthesia: 8 mL's of 1% lidocaine without epinephrine given locally Procedure: Consent was verified and timeout performed. Appropriate imaging studies were reviewed prior to the procedure. Patient was placed in a semi-recumbent and limited thoracic ultrasound was performed of the left lateral chest. See separate imaging. The site appropriate for thoracentesis was selected. The skin was prepped and draped in normal sterile fashion. Lidocaine was used for local analgesia. Fluid was aspirated via the finder needle. A small skin diamond was made with the scalpel and the catheter over the needle apparatus was advanced over the rib into the pleural space. Using the syringe one-way valve system, a total of 1200 mL's of serosanguineous fluid was removed. Procedure was terminated due to no further fluid. The catheter was removed and observed to be intact. A sterile dressing was applied. Post procedure chest x-ray was ordered. Fluid was sent for LDH, total protein, cell count, glucose, pH, cytology, AFB cultures, gram stain and culture and fungal cultures. The patient tolerated the procedure well without obvious complication Coding CPT Codes Pulmonary/Thoracic - Pulmonary and Thoracic: 68185 Thoracentesis w imaging ([id number]) [facility] [place] Procedure Codes (Charges) Pulmonary/Thoracic Procedure 1: Pulmonary and Thoracic: 39057 Thoracentesis w imaging
--- NOTE | 2021-08-20 13:15 | XRay Report ---
XR chest 1V portable CLINICAL HISTORY: s/p ebus and Thoracentesis TECHNIQUE: Single frontal radiograph of the chest was obtained. Comparison: Comparison is made to chest radiograph 08/18/2021 FINDINGS: No lines and tubes are seen. Cardiomegaly is noted. Redemonstration of left suprahilar mass and left lower lobe opacity compatible with previously noted atelectasis. Moderate left and small right pleura l effusions are seen. The left effusion is decreased in size. IMPRESSION: 1. Interval decrease in size of left effusion without evidence of pneumothorax. 2. Redemonstration of left suprahilar mass and left lower lung atelectasis. ACT 112: Negative or not required by law. Electronically signed by: Lion Cortez M.D. 08/20/2021 1:14 PM
[2021-08-20 14:56] LABS: Amylase Pleural Fluid < 10 U/L; Glucose Pleural Fluid 135 mg/dl; LDH Pleural Fluid 463 U/L; Total Protein Pleural Fluid < 3.0 gm/dl
[2021-08-20 16:08] LABS: Appearance Pleural Fluid BLOODY; Color Pleural Fluid RED; Neutrophils, Fluid 25 %; RBC Pleural Fluid (A) 159000 /uL; Source Pleural Fluid LEFT; WBC Pleural Fluid (A) 808 /uL
[2021-08-20 16:09] LABS: Eosinophils, Fluid 0 %; Lymphocytes, Fluid 25 %; Mono,Macrophage,Mesothelial 50 %
--- NOTE | 2021-08-20 17:16 | Hospitalist Progress Note ---
Date of Service August 20, 2021 Assessment & Plan (1) Pulmonary mass: (2) Pleural effusion on left: (3) Breath shortness: (4) Hypoxia: Plan: Lung mass on imaging likely bronchogenic malignancy Acute hypoxemic respiratory failure Postobstructive pneumonia Sepsis POA: WBC and pulse rate at presentation elevated. Left pleural effusion Small pericardial effusion Patient has been smoking since age 16, does not use home oxygen, does not have established lung doctor as an outpatient per her, does not have trouble swallowing food. Patient reports dyspnea with exertion since 1 week [employer], worsening voice for quite some time. 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 6.4 cm necrotic left lower lobe mass and numerous smaller pulmonary metastasis. Moderate left pleural effusion. No PE. Emphysema. Small pericardial effusion. Brain MRI with no evidence for intracranial metastatic disease. Continue with Unasyn 08/19, supplemental oxygen, titrate as tolerated. Continue with nebs RTC, prednisone course for possible concomitant COPD exacerbation given emphysematous lungs on x-ray. Aspiration precaution, swallow eval. Follow echo for pericardial effusion-technically limited study, moderate size circumferential pericardial effusion with echodense structure in the fluid that may represent loculation versus malignancy. There is no echocardiographic indications of cardiac tamponade. EF 55 to 60% Appreciate pulmonary input and recommendation Pulmonology evaluated, n.p.o. midnight, bronchoscopy/EBUS tomorrow for pathologi estrella diagnosis of lung mass. Status post bronchial biopsy and left thoracentesis of 1.2 L of fluid Likely malignant lesion as per bronchoscopy-await pathology #. Other chronic medical conditions: HTN, HLD, prediabetes Continue with/resume home meds as and when appropriate. Patient's calcium supplement and HCTZ on hold due to elevated calcium level at presentation, resume when able. DVT prophylaxis: Lovenox subcu on hold, likely bronch and biopsy isi. Full code Patient's granddaughter Ms. Wandy Mart, contact #[phone] Admission and Anticipated Discharge Date Admission Date: August 18, 2021 Subjective 08/20/2021 The patient was seen and examined in telemetry unit She has been complaining of cough with hemoptysis Has moderate shortness of breath but denies any pain She will have bronchoscopy today Review of Systems Review of Systems: All systems reviewed and are unremarkable except as noted below Respiratory: Cough with hemoptysis Physical Exam Physical Exam: Lying in bed with moderate distress due to cough and shortness of breath Constitutional: + ill appearing and average body habitus Eyes: PERRL, conjunctivae normal, anicteric sclerae ENMT: external ear and nose normal, oropharynx normal Neck: trachea midline, no thyromegaly Respiratory: no respiratory distress Auscultation: + diminished lung sounds and + crackles (Bilaterally minimal) Cardiovascular: Rate/Rhythm: regular rate, regular rhythm and + tachycardic Heart Sounds: normal S1 and normal S2; no murmur Gastrointestinal (Abdomen): Inspection/Auscultation: normal bowel sounds; abdomen not distended Percussion/Palpation: abdomen soft; abdomen nontender Musculoskeletal: No acute arthritis in any joint Neurologic: Alert, awake and oriented x3 Results & Data Results & Data ([facility]) Vital Signs (Past 12 Hours) Vital Signs Temp Pulse Pulse Resp BP BP Pulse Ox 08/20/21 15:50 36.7 C 106 H 24 123/76 93 08/20/21 15:05 95 H 08/20/21 14:00 36.9 C 100 H 18 117/68 94 08/20/21 13:30 36.8 C 109 H 20 117/54 L 92 08/20/21 13:05 101 H 18 108/66 94 08/20/21 12:50 107 H 18 120/65 95 08/20/21 12:45 110 H 20 140/69 98 08/20/21 12:40 114 H 20 149/77 H 98 08/20/21 12:35 114 H 20 149/77 H 98 08/20/21 12:30 117 H 20 139/75 95 08/20/21 12:25 117 H 20 137/92 92 08/20/21 12:20 119 H 20 148/88 H 92 08/20/21 12:15 119 H 20 159/80 H 88 L 08/20/21 12:10 118 H 22 161/72 H 87 L 08/20/21 12:05 114 H 22 159/74 H 91 08/20/21 12:00 111 H 22 116/58 L 98 08/20/21 11:55 115 H 20 124/69 98 08/20/21 11:50 107 H 20 126/67 98 08/20/21 10:56 36.7 C 95 H 16 100/65 92 08/20/21 08:14 36.7 C 106 H 20 120/72 90 08/20/21 07:09 104 H 18 93 08/20/21 07:06 96 H Laboratory Results Short CBC 08/20/21 Range/Units 05:46 WBC 14.82 H (4.8-10.8) K/uL Hgb 11.0 L (12.0-16.0) g/dL Hct 34.8 L (37-47) % Plt Count 368 (130-400) K/uL BMP 08/20/21 05:46 Sodium 143 Potassium 4.4 Chloride 103 Carbon Dioxide 38 H BUN 20 Creatinine 0.39 L Glucose 121 H Calcium 8.9 Urine 08/19/21 Range/Units 17:50 Urine Color Yellow Urine Appearance Clear (Clear) Urine pH 6.0 (4.5-7.5) Ur Specific [place] 1.037 H (1.000-1.030) Urine Protein 1+ H (Negative) Urine Glucose (UA) Negative (Negative) Medications Administered Current Inpatient Medications Acetaminophen (Acetaminophen 325 Mg Tab) 650 mg PO Q4H PRN PRN Reason: Pain or Fever Stop: 09/17/21 23:36 Artificial Tears (Artificial Tears) 1 drops OP DAILY PRN PRN Reason: Dry Eye(S) Stop: 09/18/21 01:20 Aspirin (Aspirin 81 Mg Ectab) 81 mg PO QAM [facility] Stop: 09/18/21 08:59 Last Admin: 08/20/21 08:19 Dose: Not Given Documented by: Atorvastatin Calcium (Atorvastatin 20 Mg Tab) 20 mg PO HS [facility] Stop: 09/18/21 20:59 Last Admin: 08/19/21 20:27 Dose: 20 mg Documented by: Cyclosporine (Cyclosporine (Restasis Eye Drops)) 1 drops OP BID [facility] Stop: 09/18/21 20:59 Last Admin: 08/20/21 08:24 Dose: 1 drops Documented by: Enoxaparin Sodium (Enoxaparin Inj 30 Mg/0.3 Ml Syr) 30 mg SQ QAM [facility] Stop: 09/18/21 08:59 Last Admin: 08/19/21 07:42 Dose: 30 mg Documented by: Promethazine HCl 6.25 mg/ (Sodium Chloride) 50.25 mls @ 201 mls/hr IV Q6H PRN PRN Reason: Nausea And Vomiting Stop: 09/17/21 23:36 Ampicillin Sodium/Sulbactam Sodium 3,000 mg/ Sodium Chloride 108 mls @ 216 mls/hr IV Q6H [facility]; Protocol Stop: 08/26/21 05:59 Last Infusion: 08/20/21 12:04 Dose: Infused Documented by: Ipratropium [place] (Ipratropium [place] Neb Soln 0.02% 2.5 Ml Vial) 0.5 mg INH Q6R [facility] Stop: 09/18/21 00:59 Last Admin: 08/20/21 13:16 Dose: Not Given Documented by: Levalbuterol HCl (Levalbuterol 1.25mg/0.5ml Neb) 1.25 mg INH Q6R [facility] Stop: 09/18/21 00:59 Last Admin: 08/20/21 13:16 Dose: Not Given Documented by: Miscellaneous Information (Ampicillin/Sulbactam Consult Active) 1 ea N/A UD PRN PRN Reason: Consult Stop: 09/18/21 01:22 Multivitamins (Multivitamin Tab) 1 tab PO QAM [facility] Stop: 09/18/21 08:59 Last Admin: 08/20/21 08:24 Dose: 1 tab Documented by: Prednisone (Prednisone 20 Mg Tab) 20 mg PO DAILY [facility] Stop: 08/23/21 08:59 Last Admin: 08/20/21 08:24 Dose: 20 mg Documented by: Tramadol HCl (Tramadol Hcl 50 Mg Tablet) 25 - 50 mg PO Q4H PRN PRN Reason: Pain Stop: 09/17/21 23:36
[2021-08-20] MEDS: ATORVASTATIN 20 MG TAB PO SCH (20:02)
[2021-08-21] MEDS: LEVALBUTEROL 1.25MG/0.5ML NEB INH SCH ×4 (00:03→19:05)
[2021-08-21] MEDS: IPRATROPIUM BROMIDE NEB SOLN 0.02% 2.5 ML VIAL INH SCH ×4 (00:03→19:05)
[2021-08-21] MEDS: AMPICILLIN/SULBACTAM SOD 3,000 MG in 0.9 % SODIUM CHLORIDE 100 ML IV SCH ×3 (06:00→16:46)
[2021-08-21 07:29] LABS: Basophils # (auto) 0.01 K/uL (0-0.2); Basophils % (auto) 0.1 %; Eosinophils % (auto) 1.6 %; Hematocrit (blood only) 36.3 % (37-47); Hemoglobin 11.3 g/dL (12.0-16.0); Immature Granulocytes # (auto) 0.06 K/uL (0.00-0.02); Immature Granulocytes % (auto) 0.5 %; Lymphocytes # (auto) 0.79 K/uL (1.2-3.4); Lymphocytes % (auto) 6.3 %; Mean Corpuscular Hemoglobin 26.9 pg (25-34); Mean Corpuscular Hgb Conc 31.1 g/dL (32-36); Mean Corpuscular Volume 86.4 fL (80-100); Mean Platelet Volume 9.8 fL (7.4-10.4); Monocytes % (auto) 8.8 %; Neutrophils % (auto) 82.7 %; Platelet Count 332 K/uL (130-400); RDW Coefficient of Variation 14.3 % (11.5-14.5); RDW Standard Deviation 44.7 fL (36.4-46.3); White Blood Count 12.46 K/uL (4.8-10.8)
[2021-08-21 07:51] LABS: BUN Creatinine Ratio 55.2 (10-20); Calcium 8.8 mg/dl (8.5-10.1); Est GFR (Non-African American) 117.3 ml/min
[2021-08-21] MEDS ORDERED: ADENOSINE IV SOLN 3 MG/ML 2 ML VIAL IV ONE ×2 (08:13→08:26)
[2021-08-21] MEDS: LACTATED RINGER'S 1,000 ML IV SCH ×2 (08:20→16:44)
[2021-08-21] MEDS ORDERED: METOPROLOL TARTRATE 1 MG/ML VIAL IV ONE (08:30)
[2021-08-21] MEDS: AMIODARONE 150MG / 100ML D5W IV ONE ×2 (08:40→09:21)
[2021-08-21] MEDS ORDERED: AMIODARONE 360MG / 200ML D5W IV ONE (08:47)
--- NOTE | 2021-08-21 08:49 | Communication Note ---
Date of Service: August 21, 2021 Code davonte was called overhead. Patient was seen laying in her bed. Heart monitor was attached. Heart rates were in the to 120s. Physical exam noted pat ient did appeared clammy and in respiratory distress. EKG was eventually performed. Telemetry was hooked up. The defibrillator. Patient was given 6 mg of adenosine after failure of vasovagal maneuvers. The rhythm after adenosine appeared to be 3-1 flutter. Patient then immediately went back to heart rate of 220 bpm. We then gave additional 12 mg of adenosine. Eventually the rhythm broke and became sinus tach. Patient was started on amiodarone with 150 mg bolus. Fluids also were initiated and currently the patient receiving lactated Ringer's. An additional IV site will be obtained. Chest x-ray reviewed from this morning with no evidence of pneumothorax or hemothorax. Patient felt better after interventions. Blood pressure improved from the 90s systolically to the 100s systolically. Patient does have a history of a pericardial effusion. Discussed with the hospitalist and encouraged them to talk with cardiology and potentially repeat an echocardiogram to evaluate for tamponade physiology. Thank you for allowing us to participate in the care of this patient. Please call with questions. CRITICAL CARE TIME - I have personally spent 39 minutes of critical care time in the direct management of this patient. This is a life/limb threatening event. This includes time spent evaluating patient, direct bedside care, chart review, placing orders, interpretation of diagnostic studies, discussion with consultants, patient, and family members, as well as other required patient management activities. This time is exclusive of all separately billable procedures, and teaching time and separate from and in addition to any other critical care service time. Coding Level of Care Code Critical Care 1st 30-74 mins Time Spent (min) 39
--- NOTE | 2021-08-21 08:51 | XRay Report ---
XR chest 1V portable CLINICAL HISTORY: SVT/PNX TECHNIQUE: Single frontal radiograph of the chest was obtained. Comparison: Comparison is made to chest radiograph 08/20/2021 FINDINGS: No lines and tubes are seen. Cardiomegaly is noted. Redemonstration of left suprahilar mass and left lower lobe atelectasis. Small right and moderate to large left effusions, increased in size from prio r exam. IMPRESSION: No acute chest disease. ACT 112: Negative or not required by law. Electronically signed by: Lion Cortez M.D. 08/21/2021 8:50 AM
[2021-08-21] MEDS ORDERED: METOPROLOL TARTRATE 25 MG TAB PO SCH (09:00)
[2021-08-21] MEDS: CYCLOSPORINE OP SCH ×2 (09:00→21:26)
[2021-08-21] MEDS: MULTIVITAMIN TAB PO SCH (09:02)
[2021-08-21] MEDS: predniSONE 20 MG TAB PO SCH (09:03)
[2021-08-21] MEDS ORDERED: ADENOSINE IV SOLN 3 MG/ML 2 ML VIAL IV STA ×2 (09:06)
[2021-08-21] MEDS ORDERED: 0.2 MICRON FILTER SET 1 EA IV ONE (09:07)
[2021-08-21] MEDS ORDERED: AMIODARONE / D5W 150 MG/100 ML BAG IV STA (09:07)
[2021-08-21] MEDS ORDERED: AMIODARONE / D5W 360 MG/200 ML BAG IV ONE (09:07)
--- NOTE | 2021-08-21 11:03 | Cardiology Consultation ---
Date of Consultation August 21, 2021 Assessment & Plan (1) Pulmonary mass: (2) Pleural effusion on left: Overall this patient's prognosis is poor. 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 The best options is to continue the amiodarone. My opinion is that this is a case where the medical oncologist need to see the patient in the hospital and provide treatment options directly to the patient. Also goals of treatment need to be discussed. 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 This morning she went into a rapid narrow complex tachycardia. Rates were over 200 bpm. She was given 2 doses of adenosine of which the second dose resulted in a 7-second pause. The adenosine did not stop the arrhythmia. Eventually she was started on IV amiodarone and has been maintaining sinus rhythm. She has no current cardiac complaints. Allergies Allergy/AdvReac Type Severity Reaction Status Date / Time naproxen Allergy Intermediate HIVES Verified 08/18/21 19:59 Home Medications Medication Instructions Recorded Confirmed Type ascorbic acid (vitamin C) 1,000 mg 1,000 mg PO QAM 06/25/18 08/18/21 History tablet (Vitamin C) aspirin 81 mg tablet,delayed 81 mg PO QAM 06/25/18 08/18/21 History release calcium carbonate 500 mg-vitamin 2 tab PO QAM 06/25/18 08/18/21 History D3 5 mcg (200 unit) tablet (Os-Reji 500 + D3) carboxymethylcellulose sodium 1 drp OPB DAILY PRN 06/25/18 08/18/21 History cholecalciferol (vitamin D3) 25 1,000 unit PO QAM 06/25/18 08/18/21 History mcg (1,000 unit) capsule (Vitamin D3) cyanocobalamin (vitamin B-12) 1,000 mcg PO QAM 06/25/18 08/18/21 History 1,000 mcg tablet (Vitamin B-12) cyclosporine 0.05 % eye drops in a 1 drp OPB BID 06/25/18 08/18/21 History dropperette (Restasis) erythromycin with ethanol 2 % 1 applic TOPICAL QAM 06/25/18 08/18/21 History topical solution glucosamine sulfate 1,000 mg 2,000 mg PO BID 06/25/18 08/18/21 History capsule hydrochlorothiazide 25 mg tablet 25 mg PO QAM 06/25/18 08/18/21 History multivitamin 1 tab PO QAM 06/25/18 08/18/21 History omega 3 350 mg-dha 235 mg-epa 90 1 cap PO PM 06/25/18 08/18/21 History mg-fish oil 597 mg capsule,delay rel (Kelayres-3) atorvastatin 20 mg tablet 20 mg PO HS 08/18/21 08/18/21 History Patient History Medical History No known health problems Pleural effusion on left Family History Other No pertinent family history Social History Smoking Status: Current every day smoker Tobacco Type: Cigarettes Hx Alcohol Use: No Hx Substance Use: No Preferred Language: Filipino Communication Ability: Effective Creative Guru Required: No Beliefs That Will Affect Care: None marital status: Single Current Living Situation: Alone Other Information That Helps Us Care for You: No Feels Safe at Home: Yes Safety Concerns: Feels Safe At This Time Assistive Devices: None Review of Systems Review of Systems: Review of Systems: See HPI for pertinent positives. All other 10 point review of systems are negative. Physical Exam Physical Exam: General: no acute distress and stated age Head: normocephalic, no masses, lesions, tenderness or abnormalities Eyes: conjunctiva are pink and non-injected, sclera clear Neck: supple, no adenopathy, no bruits, normal jugular venous pulse, no hepatojugular reflux Chest: normal shape and normal respiratory effort Lungs: clear to auscultation and percussion Cardiac Exam: - regular rate & rhythm, no murmurs gallops or rubs - normal S1, normal S2 Pulses: 2(+) throughout Abdomen: abdomen soft, non-tender, no abnormal masses and no hepatosplenomegaly Musculoskeletal: no gait disturbance, no joint inflammation, no deforming arthritis Extremities: no edema and no cyanosis Neuro: grossly normal exam Results & Data ([facility]) Vital Signs (Past 12 Hours) Vital Signs Temp Pulse Pulse Resp BP Pulse Ox 08/21/21 10:00 110 H 18 96/52 L 94 08/21/21 09:00 114 H 20 154/66 H 94 08/21/21 08:41 111 H 26 H 104/67 95 08/21/21 08:30 115 H 26 H 107/52 L 95 08/21/21 08:20 254 H 34 H 102/60 91 08/21/21 07:52 37.0 C 107 H 18 128/69 94 08/21/21 07:42 104 H 08/21/21 07:15 101 H 18 94 08/21/21 03:30 36.7 C 102 H 18 118/72 98 08/21/21 00:03 100 H 18 94 08/20/21 23:13 91 H Laboratory Results Laboratory Results - last 24 hr 08/20/21 08/20/21 08/20/21 05:46 12:32 12:32 WBC RBC Hgb Hct MCV MCH MCHC RDW Std Deviation RDW Coeff of Miguel Plt Count MPV Immature Gran % (Auto) Neut % (Auto) Lymph % (Auto) Sherman % (Auto) Eos % (Auto) Baso % (Auto) Neut # (Auto) Lymph # (Auto) [place] # (Auto) Eos # (Auto) Baso # (Auto) Immature Gran # (Auto) Sodium Potassium Chloride Carbon Dioxide Anion Gap BUN Creatinine Est Cr Clr Drug Dosing Est GFR ( Amer) Est GFR (Non-Af Amer) BUN/Creatinine Ratio Glucose Calcium Fluid Neutrophils % Fluid Lymphocytes % Fluid Eosinophils % Fluid Meso/Macro/Sherman % Fluid Comment Pleural Fluid Source Pleural Color Pleural Appearance Pleural pH 7.33 Pleural WBC Pleural RBC Pleural Total Protein < 3.0 Pleural LDH 463 Pleural Glucose 135 Pleural Amylase < 10 Hepatitis C Ab (EIA) NON-REACTIVE Hep C Ab Signal/Cutoff 0.01 08/20/21 08/21/21 08/21/21 Unknown 07:01 07:01 WBC 12.46 H RBC 4.20 Hgb 11.3 L Hct 36.3 L MCV 86.4 MCH 26.9 MCHC 31.1 L RDW Std Deviation 44.7 RDW Coeff of Miguel 14.3 Plt Count 332 MPV 9.8 Immature Gran % (Auto) 0.5 Neut % (Auto) 82.7 Lymph % (Auto) 6.3 Sherman % (Auto) 8.8 Eos % (Auto) 1.6 Baso % (Auto) 0.1 Neut # (Auto) 10.30 H Lymph # (Auto) 0.79 L Sherman # (Auto) 1.10 H Eos # (Auto) 0.20 Baso # (Auto) 0.01 Immature Gran # (Auto) 0.06 H Sodium 141 Potassium 4.0 Chloride 101 Carbon Dioxide 36 H Anion Gap 4 BUN 16 Creatinine 0.29 L Est Cr Clr Drug Dosing 149.0 Est GFR ( Amer) 136.0 Est GFR (Non-Af Amer) 117.3 BUN/Creatinine Ratio 55.2 H Glucose 116 H Calcium 8.8 Fluid Neutrophils % 25 Fluid Lymphocytes % 25 Fluid Eosinophils % 0 Fluid Meso/Macro/Sherman % 50 Fluid Comment Pleural Fluid Source LEFT Pleural Color RED Pleural Appearance BLOODY Pleural pH Pleural WBC 808 Pleural RBC [id number] Pleural Total Protein Pleural LDH Pleural Glucose Pleural Amylase Hepatitis C Ab (EIA) Hep C Ab Signal/Cutoff Medications Administered Current Inpatient Medications Acetaminophen (Acetaminophen 325 Mg Tab) 650 mg PO Q4H PRN PRN Reason: Pain or Fever Stop: 09/17/21 23:36 Artificial Tears (Artificial Tears) 1 drops OP DAILY PRN PRN Reason: Dry Eye(S) Stop: 09/18/21 01:20 Aspirin (Aspirin 81 Mg Ectab) 81 mg PO QAM [facility] Stop: 09/18/21 08:59 Last Admin: 08/20/21 08:19 Dose: Not Given Documented by: Atorvastatin Calcium (Atorvastatin 20 Mg Tab) 20 mg PO HS [facility] Stop: 09/18/21 20:59 Last Admin: 08/20/21 20:02 Dose: 20 mg Documented by: Cyclosporine (Cyclosporine (Restasis Eye Drops)) 1 drops OP BID [facility] Stop: 09/18/21 20:59 Last Admin: 08/21/21 09:00 Dose: 1 drops Documented by: Enoxaparin Sodium (Enoxaparin Inj 30 Mg/0.3 Ml Syr) 30 mg SQ QAM [facility] Stop: 09/18/21 08:59 Last Admin: 08/19/21 07:42 Dose: 30 mg Documented by: Promethazine HCl 6.25 mg/ (Sodium Chloride) 50.25 mls @ 201 mls/hr IV Q6H PRN PRN Reason: Nausea And Vomiting Stop: 09/17/21 23:36 Ampicillin Sodium/Sulbactam Sodium 3,000 mg/ Sodium Chloride 108 mls @ 216 mls/hr IV Q6H [facility]; Protocol Stop: 08/26/21 05:59 Last Infusion: 08/21/21 06:30 Dose: Infused Documented by: Amiodarone HCl/Dextrose (Nexterone / D5w) 360 mg in 200 mls @ 33.333 mls/hr IV ONE ONE; Protocol Stop: 08/21/21 15:06 Last Admin: 08/21/21 08:47 Dose: 1 mg/min, 33.3 mls/hr Documented by: Lactated Ringer's (Lr) 1,000 mls @ 100 mls/hr IV .Q10H [facility] Stop: 09/20/21 09:14 Last Admin: 08/21/21 08:20 Dose: 100 mls/hr Documented by: Ipratropium Sidell (Ipratropium Sidell Neb Soln 0.02% 2.5 Ml Vial) 0.5 mg INH Q6R [facility] Stop: 09/18/21 00:59 Last Admin: 08/21/21 07:14 Dose: 0.5 mg Documented by: Levalbuterol HCl (Levalbuterol 1.25mg/0.5ml Neb) 1.25 mg INH Q6R [facility] Stop: 09/18/21 00:59 Last Admin: 08/21/21 07:14 Dose: 1.25 mg Documented by: Miscellaneous Information (Ampicillin/Sulbactam Consult Active) 1 ea N/A UD PRN PRN Reason: Consult Stop: 09/18/21 01:22 Multivitamins (Multivitamin Tab) 1 tab PO QAM [facility] Stop: 09/18/21 08:59 Last Admin: 08/21/21 09:02 Dose: 1 tab Documented by: Prednisone (Prednisone 20 Mg Tab) 20 mg PO DAILY [facility] Stop: 08/23/21 08:59 Last Admin: 08/21/21 09:03 Dose: 20 mg Documented by: Tramadol HCl (Tramadol Hcl 50 Mg Tablet) 25 - 50 mg PO Q4H PRN PRN Reason: Pain Stop: 09/17/21 23:36
[2021-08-21] MEDS: AMIODARONE 200 MG TAB PO SCH ×2 (11:56→16:47)
[2021-08-21] MEDS ORDERED: METOPROLOL TARTRATE 1 MG/ML VIAL IV SCH (12:00)
--- NOTE | 2021-08-21 16:44 | Hospitalist Progress Note ---
Date of Service August 21, 2021 Assessment & Plan (1) Pulmonary mass: (2) Pleural effusion on left: (3) Breath shortness: (4) Hypoxia: Plan: Lung mass on imaging likely bronchogenic malignancy Acute hypoxemic respiratory failure Postobstructive pneumonia Sepsis POA: WBC and pulse rate at presentation elevated. Left pleural effusion Small pericardial effusion Patient has been smoking since age 16, does not use home oxygen, does not have established lung doctor as an outpatient per her, does not have trouble swallowing food. Patient reports dyspnea with exertion since 1 week [employer], worsening voice for quite some time. 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 6.4 cm necrotic left lower lobe mass and numerous smaller pulmonary metastasis. Moderate left pleural effusion. No PE. Emphysema. Small pericardial effusion. Brain MRI with no evidence for intracranial metastatic disease. Continue with Unasyn 08/19, supplemental oxygen, titrate as tolerated. Continue with nebs RTC, prednisone course for possible concomitant COPD exacerbation given emphysematous lungs on x-ray. Aspiration precaution, swallow eval. Follow echo for pericardial effusion-technically limited study, moderate size circumferential pericardial effusion with echodense structure in the fluid that may represent loculation versus malignancy. There is no echocardiographic indications of cardiac tamponade. EF 55 to 60% Appreciate pulmonary input and recommendation Pulmonology evaluated, n.p.o. midnight, bronchoscopy/EBUS tomorrow for pathologi estrella diagnosis of lung mass. Status post bronchial biopsy and left thoracentesis of 1.2 L of fluid Likely malignant lesion as per bronchoscopy-await pathology Discussed with granddaughter about lung mass which seems to be cancerous We will get an oncology evaluation in the hospital Prognosis remains poor A. fib/flutter with RVR Likely secondary to direct involvement of the puneet and myocardium due to cancer as per echocardiogram The patient went into A. fib with RVR early this morning when reny arauz was called due to low blood pressure She received intravenous adenosine without any response and later on intravenous amiodarone was added Reverted to sinus rhythm Cardiology consulted-appreciate input and recommendation #. Other chronic medical conditions: HTN, HLD, prediabetes Continue with/resume home meds as and when appropriate. Patient's calcium supplement and HCTZ on hold due to elevated calcium level at presentation, resume when able. DVT prophylaxis: Lovenox subcu on hold, likely bronch and biopsy isi. Full code Patient's granddaughter Ms. Wandy Mart, contact #[phone] Admission and Anticipated Discharge Date Admission Date: August 18, 2021 Subjective 08/20/2021 The patient was seen and examined in telemetry unit She has been complaining of cough with hemoptysis Has moderate shortness of breath but denies any pain She will have bronchoscopy today 08/21/2021 The patient was seen and examined in telemetry unit Code davonte was called early this morning as the patient went into A. fib flutter with rapid ventricular rate She did not have any chest pain but did have more shortness of breath Reverted to sinus rhythm on intravenous amiodarone Review of Systems Review of Systems: All systems reviewed and are unremarkable except as noted below Respiratory: Cough with hemoptysis Physical Exam Physical Exam: Lying in bed with anxiety and moderate distress due to shortness of breath Constitutional: + ill appearing and average body habitus Eyes: PERRL, conjunctivae normal, anicteric sclerae ENMT: external ear and nose normal, oropharynx normal Neck: trachea midline, no thyromegaly Respiratory: no respiratory distress Auscultation: + diminished lung sounds and + crackles (Bilaterally minimal) Cardiovascular: Rate/Rhythm: regular rate, regular rhythm and + tachycardic Heart Sounds: normal S1 and normal S2; no murmur Gastrointestinal (Abdomen): Inspection/Auscultation: normal bowel sounds; abdomen not distended Percussion/Palpation: abdomen soft; abdomen nontender Musculoskeletal: No acute arthritis involving any joint Neurologic: Alert, awake and oriented x3 Results & Data Results & Data ([facility]) Vital Signs (Past 12 Hours) Vital Signs Temp Pulse Pulse Resp BP Pulse Ox 08/21/21 15:23 100 H 08/21/21 12:19 85 18 95 08/21/21 11:27 36.9 C 100 H 20 128/66 93 08/21/21 10:00 110 H 18 96/52 L 94 08/21/21 09:00 114 H 20 154/66 H 94 08/21/21 08:41 111 H 26 H 104/67 95 08/21/21 08:30 115 H 26 H 107/52 L 95 08/21/21 08:20 254 H 34 H 102/60 91 08/21/21 07:52 37.0 C 107 H 18 128/69 94 08/21/21 07:42 104 H 08/21/21 07:15 101 H 18 94 Laboratory Results Short CBC 08/21/21 Range/Units 07:01 WBC 12.46 H (4.8-10.8) K/uL Hgb 11.3 L (12.0-16.0) g/dL Hct 36.3 L (37-47) % Plt Count 332 (130-400) K/uL BMP 08/21/21 07:01 Sodium 141 Potassium 4.0 Chloride 101 Carbon Dioxide 36 H BUN 16 Creatinine 0.29 L Glucose 116 H Calcium 8.8 Medications Administered Current Inpatient Medications Acetaminophen (Acetaminophen 325 Mg Tab) 650 mg PO Q4H PRN PRN Reason: Pain or Fever Stop: 09/17/21 23:36 Amiodarone HCl (Amiodarone 200 Mg Tab) 200 mg PO TIDM [facility] Stop: 09/20/21 11:59 Last Admin: 08/21/21 11:56 Dose: 200 mg Documented by: Artificial Tears (Artificial Tears) 1 drops OP DAILY PRN PRN Reason: Dry Eye(S) Stop: 09/18/21 01:20 Aspirin (Aspirin 81 Mg Ectab) 81 mg PO QAM [facility] Stop: 09/18/21 08:59 Last Admin: 08/20/21 08:19 Dose: Not Given Documented by: Atorvastatin Calcium (Atorvastatin 20 Mg Tab) 20 mg PO HS [facility] Stop: 09/18/21 20:59 Last Admin: 08/20/21 20:02 Dose: 20 mg Documented by: Cyclosporine (Cyclosporine (Restasis Eye Drops)) 1 drops OP BID [facility] Stop: 09/18/21 20:59 Last Admin: 08/21/21 09:00 Dose: 1 drops Documented by: Enoxaparin Sodium (Enoxaparin Inj 30 Mg/0.3 Ml Syr) 30 mg SQ QAM [facility] Stop: 09/18/21 08:59 Last Admin: 08/19/21 07:42 Dose: 30 mg Documented by: Promethazine HCl 6.25 mg/ (Sodium Chloride) 50.25 mls @ 201 mls/hr IV Q6H PRN PRN Reason: Nausea And Vomiting Stop: 09/17/21 23:36 Ampicillin Sodium/Sulbactam Sodium 3,000 mg/ Sodium Chloride 108 mls @ 216 mls/hr IV Q6H [facility]; Protocol Stop: 08/26/21 05:59 Last Infusion: 08/21/21 13:14 Dose: Infused Documented by: Lactated Ringer's (Lr) 1,000 mls @ 100 mls/hr IV .Q10H [facility] Stop: 09/20/21 09:14 Last Admin: 08/21/21 08:20 Dose: 100 mls/hr Documented by: Ipratropium Sturgeon (Ipratropium Sturgeon Neb Soln 0.02% 2.5 Ml Vial) 0.5 mg INH Q6R [facility] Stop: 09/18/21 00:59 Last Admin: 08/21/21 12:19 Dose: 0.5 mg Documented by: Levalbuterol HCl (Levalbuterol 1.25mg/0.5ml Neb) 1.25 mg INH Q6R [facility] Stop: 09/18/21 00:59 Last Admin: 08/21/21 12:19 Dose: 1.25 mg Documented by: Miscellaneous Information (Ampicillin/Sulbactam Consult Active) 1 ea N/A UD PRN PRN Reason: Consult Stop: 09/18/21 01:22 Multivitamins (Multivitamin Tab) 1 tab PO QAM [facility] Stop: 09/18/21 08:59 Last Admin: 08/21/21 09:02 Dose: 1 tab Documented by: Prednisone (Prednisone 20 Mg Tab) 20 mg PO DAILY [facility] Stop: 08/23/21 08:59 Last Admin: 08/21/21 09:03 Dose: 20 mg Documented by: Tramadol HCl (Tramadol Hcl 50 Mg Tablet) 25 - 50 mg PO Q4H PRN PRN Reason: Pain Stop: 09/17/21 23:36
[2021-08-21] MEDS: ATORVASTATIN 20 MG TAB PO SCH (21:25)
[2021-08-22] MEDS: IPRATROPIUM BROMIDE NEB SOLN 0.02% 2.5 ML VIAL INH SCH ×3 (00:06→13:00)
[2021-08-22] MEDS: LEVALBUTEROL 1.25MG/0.5ML NEB INH SCH ×3 (00:06→13:01)
[2021-08-22] MEDS: AMPICILLIN/SULBACTAM SOD 3,000 MG in 0.9 % SODIUM CHLORIDE 100 ML IV SCH ×5 (00:12→23:09)
[2021-08-22] MEDS ORDERED: LEVALBUTEROL HCL 1.25 MG/3 ML NEB NEB STA (04:53)
[2021-08-22] MEDS ORDERED: FUROSEMIDE INJ 20 MG/2 ML VIAL IV ONE (04:53)
--- NOTE | 2021-08-22 06:21 | Electrocardiogram Report ---
Test Reason : Blood Pressure : / mmHG Vent. Rate : 114 BPM Atrial Rate : 114 BPM P-R Int : 122 ms QRS Dur : 090 ms QT Int : 308 ms P-R-T Axes : 070 082 068 degrees QTc Int : 424 ms Sinus tachycardia with occasional Premature ventricular complexes Low voltage QRS Borderline ECG When compared with ECG of 18-AUG-2021 18:47, Premature ventricular complexes are now Present Confirmed by Ralph Calix ([id number]) on 08/22/2021 6:21:10 AM Referred By: REFERRED SELF Confirmed By:Ralph Calix
[2021-08-22 06:29] LABS: Basophils # (auto) 0.01 K/uL (0-0.2); Basophils % (auto) 0.1 %; Eosinophils # (auto) 0.22 K/uL (0-0.5); Eosinophils % (auto) 1.7 %; Hematocrit (blood only) 37.6 % (37-47); Immature Granulocytes # (auto) 0.09 K/uL (0.00-0.02); Immature Granulocytes % (auto) 0.7 %; Lymphocytes # (auto) 0.56 K/uL (1.2-3.4); Lymphocytes % (auto) 4.4 %; Mean Corpuscular Hemoglobin 27.6 pg (25-34); Mean Corpuscular Hgb Conc 31.9 g/dL (32-36); Mean Corpuscular Volume 86.6 fL (80-100); Mean Platelet Volume 9.7 fL (7.4-10.4); Monocytes # (auto) 0.86 K/uL (0.11-0.59); Monocytes % (auto) 6.7 %; Neutrophils # (auto) 11.11 K/uL (1.4-6.5); Neutrophils % (auto) 86.4 %; Platelet Count 345 K/uL (130-400); RDW Coefficient of Variation 14.2 % (11.5-14.5); Red Blood Count 4.34 M/uL (4.2-5.4); White Blood Count 12.85 K/uL (4.8-10.8)
[2021-08-22 06:56] LABS: BUN Creatinine Ratio 36.4 (10-20); Calcium 8.9 mg/dl (8.5-10.1); Est GFR (African American) 130.3 ml/min; Est GFR (Non-African American) 112.4 ml/min; Potassium 3.4 mmol/L (3.5-5.1)
[2021-08-22] MEDS: predniSONE 20 MG TAB PO SCH (08:23)
[2021-08-22] MEDS: AMIODARONE 200 MG TAB PO SCH ×2 (08:23→16:49)
[2021-08-22] MEDS: MULTIVITAMIN TAB PO SCH (08:23)
[2021-08-22] MEDS: CYCLOSPORINE OP SCH ×2 (08:24→20:14)
[2021-08-22] MEDS ORDERED: POTASSIUM CHLORIDE CRTAB 20 MEQ TABCR PO STA (09:09)
--- NOTE | 2021-08-22 10:32 | Cardiology Progress Note ---
Date of Service August 22, 2021 Assessment & Plan (1) Pulmonary mass: (2) Pleural effusion on left: (3) SVT (supraventricular tachycardia): Plan: The patient has had no more SVT since starting amiodarone. I think we can reduce the load to 200 mg twice daily. Admission and Anticipated Discharge Date Admission Date: August 18, 2021 Subjective Patient had no new cardiac complaints. Review of Systems Review of Systems: Review of Systems: See HPI for pertinent positives. All other 10 point review of systems are negative. Physical Exam Physical Exam: General: no acute distress and stated age Head: normocephalic, no masses, lesions, tenderness or abnormalities Eyes: conjunctiva are pink and non-injected, sclera clear Neck: supple, no adenopathy, no bruits, normal jugular venous pulse, no hepatojugular reflux Chest: normal shape and normal respiratory effort Lungs: clear to auscultation and percussion Cardiac Exam: - regular rate & rhythm, no murmurs gallops or rubs - normal S1, normal S2 Pulses: 2(+) throughout Abdomen: abdomen soft, non-tender, no abnormal masses and no hepatosplenomegaly Musculoskeletal: no gait disturbance, no joint inflammation, no deforming arthritis Extremities: no edema and no cyanosis Neuro: grossly normal exam Results & Data ([facility]) Vital Signs (Past 12 Hours) Vital Signs Temp Pulse Pulse Resp BP Pulse Ox Pulse Ox 08/22/21 08:43 18 93 08/22/21 08:00 94 08/22/21 07:19 111 H 08/22/21 07:08 36.6 C 103 H 18 119/74 94 08/22/21 05:17 98 H 20 92 08/22/21 03:36 36.8 C 100 H 20 118/52 L 93 08/22/21 00:07 93 H 18 92 08/21/21 23:29 36.7 C 94 H 22 115/69 92 08/21/21 23:00 92 Laboratory Results Laboratory Results - last 24 hr 08/22/21 08/22/21 05:33 05:33 WBC 12.85 H RBC 4.34 Hgb 12.0 Hct 37.6 MCV 86.6 MCH 27.6 MCHC 31.9 L RDW Std Deviation 45.0 RDW Coeff of Miguel 14.2 Plt Count 345 MPV 9.7 Immature Gran % (Auto) 0.7 Neut % (Auto) 86.4 Lymph % (Auto) 4.4 [place] % (Auto) 6.7 Eos % (Auto) 1.7 Baso % (Auto) 0.1 Neut # (Auto) 11.11 H Lymph # (Auto) 0.56 L [place] # (Auto) 0.86 H Eos # (Auto) 0.22 Baso # (Auto) 0.01 Immature Gran # (Auto) 0.09 H Sodium 138 Potassium 3.4 L Chloride 98 Carbon Dioxide 36 H Anion Gap 4 BUN 12 Creatinine 0.33 L Est Cr Clr Drug Dosing 131.0 Est GFR ( Amer) 130.3 Est GFR (Non-Af Amer) 112.4 BUN/Creatinine Ratio 36.4 H Glucose 125 H Calcium 8.9 Medications Administered Current Inpatient Medications Acetaminophen (Acetaminophen 325 Mg Tab) 650 mg PO Q4H PRN PRN Reason: Pain or Fever Stop: 09/17/21 23:36 Amiodarone HCl (Amiodarone 200 Mg Tab) 200 mg PO TIDM [facility] Stop: 09/20/21 11:59 Last Admin: 08/22/21 08:23 Dose: 200 mg Documented by: Artificial Tears (Artificial Tears) 1 drops OP DAILY PRN PRN Reason: Dry Eye(S) Stop: 09/18/21 01:20 Aspirin (Aspirin 81 Mg Ectab) 81 mg PO QAM [facility] Stop: 09/18/21 08:59 Last Admin: 08/20/21 08:19 Dose: Not Given Documented by: Atorvastatin Calcium (Atorvastatin 20 Mg Tab) 20 mg PO HS [facility] Stop: 09/18/21 20:59 Last Admin: 08/21/21 21:25 Dose: 20 mg Documented by: Cyclosporine (Cyclosporine (Restasis Eye Drops)) 1 drops OP BID [facility] Stop: 09/18/21 20:59 Last Admin: 08/22/21 08:24 Dose: 1 drops Documented by: Enoxaparin Sodium (Enoxaparin Inj 30 Mg/0.3 Ml Syr) 30 mg SQ QAM [facility] Stop: 09/18/21 08:59 Last Admin: 08/19/21 07:42 Dose: 30 mg Documented by: Promethazine HCl 6.25 mg/ (Sodium Chloride) 50.25 mls @ 201 mls/hr IV Q6H PRN PRN Reason: Nausea And Vomiting Stop: 09/17/21 23:36 Ampicillin Sodium/Sulbactam Sodium 3,000 mg/ Sodium Chloride 108 mls @ 216 mls/hr IV Q6H [facility]; Protocol Stop: 08/26/21 05:59 Last Infusion: 08/22/21 06:23 Dose: Infused Documented by: Ipratropium Cook (Ipratropium Cook Neb Soln 0.02% 2.5 Ml Vial) 0.5 mg INH Q6R [facility] Stop: 09/18/21 00:59 Last Admin: 08/22/21 07:06 Dose: 0.5 mg Documented by: Levalbuterol HCl (Levalbuterol 1.25mg/0.5ml Neb) 1.25 mg INH Q6R [facility] Stop: 09/18/21 00:59 Last Admin: 08/22/21 07:06 Dose: 1.25 mg Documented by: Miscellaneous Information (Ampicillin/Sulbactam Consult Active) 1 ea N/A UD PRN PRN Reason: Consult Stop: 09/18/21 01:22 Multivitamins (Multivitamin Tab) 1 tab PO QAM [facility] Stop: 09/18/21 08:59 Last Admin: 08/22/21 08:23 Dose: 1 tab Documented by: Prednisone (Prednisone 20 Mg Tab) 20 mg PO DAILY [facility] Stop: 08/23/21 08:59 Last Admin: 08/22/21 08:23 Dose: 20 mg Documented by: Tramadol HCl (Tramadol Hcl 50 Mg Tablet) 25 - 50 mg PO Q4H PRN PRN Reason: Pain Stop: 09/17/21 23:36
--- NOTE | 2021-08-22 13:12 | Consultation Report ---
DATE OF SERVICE: 08/22/2021. REASON FOR CONSULTATION: Bronchogenic carcinoma. HISTORY OF PRESENT ILLNESS: Ms. Cage is a pleasant 71-year-old female who presented to the ED on 08/18/2021 with complaints of weight loss, shortness of breath, and persistent hoarseness. On arrival to the ER, patient was noted to be hypoxic with oxygen saturation in the 80s. She underwent a CTA chest on 08/18/2021, which revealed large necrotic left upper lobe/left anterior mediastinal mass that measured 11 x 8 cm, suggestive of central bronchogenic carcinoma with extensive mediastinal invasion and lymphadenopathy with multifocal venous and airway stenosis/occlusion. Also noted on CT chest was a 6.4 cm necrotic left lower lobe mass, numerous smaller pulmonary metastases with moderate left pleural effusion, and no evidence of PE. Brain MRI on 08/19/2021 revealed no evidence of intracranial metastatic disease. On 08/20/2021, she underwent flexible fiberoptic bronchoscopy with bronchoalveolar lavage and EBUS performed by Dr. Horowitz. Procedure had to be discontinued after one FNA pass as the patient had significant desaturation to the 80s, for which procedure had to be aborted. Preliminary results per my discussion with pathologist indicated possible non-small cell lung cancer. Specifically, metastatic adenocarcinoma of lung primary with insufficient material for ancillary testing. Of note, code purple had to be called yesterday as the patient went into AFib with RVR, but reverted to sinus rhythm after receiving IV amiodarone. She endorses shortness of breath and weight loss. Has more than 54-[id number] history of smoking. HOME MEDICATIONS: 1. Vitamin C supplementation. 2. Aspirin. 3. Calcium plus vitamin D3. 4. Vitamin D3. 5. Vitamin B12 oral supplementation. 6. Hydrochlorothiazide 25 mg p.o. daily. 7. Atorvastatin 20 mg p.o. at bedtime. ALLERGIES: NAPROXEN. PAST MEDICAL HISTORY: Not significant. PAST SURGICAL HISTORY: Not significant. FAMILY HISTORY: Denies significant family history of malignancy. SOCIAL HISTORY: Smokes about 1 pack of cigarettes per day and has been smoking for about 55 years. Denies alcohol and illicit drug use. REVIEW OF SYSTEMS: CONSTITUTIONAL: Positive for weight loss. Denies night sweats or fever. CARDIOVASCULAR: Denies chest pain or diaphoresis. RESPIRATORY: Endorses shortness of breath and cough. No hemoptysis. GASTROINTESTINAL: Negative for abdominal pain, diarrhea, melena, nausea or vomiting. GENITOURINARY: Negative for urinary frequency, hematuria or dysuria. NEUROLOGIC: Negative for weakness, seizure activity, headaches, or dizziness. LYMPHATICS AND HEMATOLOGIC: Negative for petechiae, bleeding or new adenopathy. MUSCULOSKELETAL: Negative for new joint or back pain. PHYSICAL EXAMINATION: VITAL SIGNS: Blood pressure 119/74, heart rate 111, respiratory rate 18, temperature 36.6, oxygen saturation 93% on 4 liters per minute nasal cannula. EYES: Eyes are without conjunctival erythema or icterus. ENT: External examination negative for masses. RESPIRATORY: Lung sounds were decreased in bilateral middle and lower zones. CARDIOVASCULAR: Heart was tachycardic without significant murmur, gallops or rub. GASTROINTESTINAL: Abdomen was soft with normal bowel sounds. No palpable hepatosplenomegaly. LYMPHATIC SYSTEM: No palpable peripheral lymphadenopathy. EXTREMITIES: Negative for edema. LABORATORY STUDIES: CBC significant for white count of 12.85, hemoglobin 12.0, hematocrit 37.6, platelet count 345,000. Chemistry significant for sodium of 138, potassium 3.4, chloride 98, bicarbonate 36, creatinine 0.33, BUN 12. IMAGING STUDIES: CTA chest on 08/18/2021, impression: 1. Large necrotic left upper lobe/left anterior mediastinal mass that measured 11 x 8 cm. This is suggestive of central bronchogenic carcinoma. Extensive mediastinal invasion and lymphadenopathy with multifocal venous and airway stenosis/occlusion. 2. A 6.4 cm necrotic left lower lobe mass and numerous pulmonary metastases. 3. Moderate left pleural effusion. Brain MRI on 08/19/2021, impression: No evidence of intracranial metastatic disease. IMPRESSION AND PLAN: 1. Lung cancer with metastasis. 2. Hypoxia. 3. Significant smoking history. A 71-year-old female who was recently diagnosed with metastatic adenocarcinoma of the lung. Unfortunately, biopsy sample was too small to perform molecular/PD-L1 testing. However, given the extensive nature of her disease and significant hypoxia, her prognosis is poor. Discussed options of treatment with the patient today including supportive care or systemic therapy with combination chemoimmunotherapy with or without palliative radiation treatment . She indicated that she would like me to speak to her granddaughter. I spoke to her granddaughter (Jessica) who is an RN over the phone regarding overall poor prognosis given patient's current poor performance status as I do not think she will be able to tolerate systemic treatment. He granddaughter indicated that she would discuss with patient and the rest of the family before making a decision. If she decides to receive treatment, she will need PET/CT or CT A/P and bone scan for full staging as well as liquid biopsy which can be obtained as outpatient. Will follow up with patient based on her decision. Thank you for this consult. Oncology will continue following the patient while in the hospital . Please feel free to call if you have any further questions. Job ID: [id number] JYOTSNA
--- NOTE | 2021-08-22 15:15 | Communication Note ---
Date of Service: August 22, 2021 The patient remains acutely sick with recent diagnosis of cancer of the lung. The family members could be allowed to come and see her at any time even outside the hospital visiting hours. Thanks DR Cielo Pulido
--- NOTE | 2021-08-22 16:28 | Hospitalist Progress Note ---
Date of Service August 22, 2021 Assessment & Plan (1) Pulmonary mass: (2) Pleural effusion on left: (3) Breath shortness: (4) Hypoxia: Plan: Lung mass on imaging likely bronchogenic malignancy Acute hypoxemic respiratory failure Postobstructive pneumonia Sepsis POA: WBC and pulse rate at presentation elevated. Left pleural effusion Small pericardial effusion Patient has been smoking since age 16, does not use home oxygen, does not have established lung doctor as an outpatient per her, does not have trouble swallowing food. 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 6.4 cm necrotic left lower lobe mass and numerous smaller pulmonary metastasis. Moderate left pleural effusion. No PE. Emphysema. Small pericardial effusion. Brain MRI with no evidence for intracranial metastatic disease. Continue with Unasyn 08/19, supplemental oxygen, titrate as tolerated. Continue with nebs RTC, prednisone course for possible concomitant COPD exacerbation given emphysematous lungs on x-ray. Aspiration precaution, swallow eval. Follow echo for pericardial effusion-technically limited study, moderate size circumferential pericardial effusion with echodense structure in the fluid that may represent loculation versus malignancy. There is no echocardiographic indications of cardiac tamponade. EF 55 to 60% Appreciate pulmonary input and recommendation Pulmonology evaluated, n.p.o. midnight, bronchoscopy/EBUS tomorrow for pathologi estrella diagnosis of lung mass. Status post bronchial biopsy and left thoracentesis of 1.2 L of fluid Likely malignant lesion as per bronchoscopy-await pathology Discussed with granddaughter about lung mass which seems to be cancerous We will get an oncology evaluation in the hospital Prognosis remains poor Pathology report came back positive for adenocarcinoma of lung origin Appreciate oncologist input and recommendation Discussed with the granddaughter and updated about the diagnosis-she wants to know from the oncologist for further management from here A. fib/flutter with RVR Likely secondary to direct involvement of the puneet and myocardium due to cancer as per echocardiogram The patient went into A. fib with RVR early this morning when reny arauz was called due to low blood pressure She received intravenous adenosine without any response and later on intravenous amiodarone was added Reverted to sinus rhythm Cardiology consulted-appreciate input and recommendation Heart rate remains reasonably stable at around 100s #. Other chronic medical conditions: HTN, HLD, prediabetes Continue with/resume home meds as and when appropriate. Patient's calcium supplement and HCTZ on hold due to elevated calcium level at presentation, resume when able. DVT prophylaxis: Lovenox subcu on hold, likely bronch and biopsy isi. Full code Patient's granddaughter Ms. Wandy Mart, contact #[phone] Admission and Anticipated Discharge Date Admission Date: August 18, 2021 Subjective 08/20/2021 The patient was seen and examined in telemetry unit She has been complaining of cough with hemoptysis Has moderate shortness of breath but denies any pain She will have bronchoscopy today 08/21/2021 The patient was seen and examined in telemetry unit Code davonte was called early this morning as the patient went into A. fib flutter with rapid ventricular rate She did not have any chest pain but did have more shortness of breath Reverted to sinus rhythm on intravenous amiodarone 08/22/2021 The patient was seen and examined in telemetry unit She has had more shortness of breath and required 1 dose of Lasix last night Remains reasonably stable today with shortness of breath and cough at times Denies any pain Review of Systems Review of Systems: All systems reviewed and are unremarkable except as noted below Respiratory: Cough with hemoptysis Physical Exam Physical Exam: Lying in bed with anxiety and moderate distress due to shortness of breath Constitutional: + ill appearing and average body habitus Eyes: PERRL, conjunctivae normal, anicteric sclerae ENMT: external ear and nose normal, oropharynx normal Neck: trachea midline, no thyromegaly Respiratory: no respiratory distress Auscultation: + diminished lung sounds and + crackles (Bilaterally minimal) Cardiovascular: Rate/Rhythm: + tachycardic and + irregularly irregular Heart Sounds: normal S1 and normal S2; no murmur Gastrointestinal (Abdomen): Inspection/Auscultation: normal bowel sounds; abdomen not distended Percussion/Palpation: abdomen soft; abdomen nontender Musculoskeletal: No acute arthritis in any joint Neurologic: Alert, awake and oriented x3. Generally weak Lymphatic: no cervical or axillary lymphadenopathy Results & Data Results & Data ([facility]) Vital Signs (Past 12 Hours) Vital Signs Temp Pulse Pulse Pulse Resp BP Pulse Ox 08/22/21 15:14 36.6 C 103 H 20 145/74 H 92 05/27/22 13:01 108 H 18 94 08/22/21 12:29 36.7 C 97 H 18 123/72 94 08/22/21 08:43 18 93 08/22/21 08:00 08/22/21 07:19 111 H 08/22/21 07:08 36.6 C 103 H 18 119/74 94 08/22/21 05:17 98 H 20 92 Pulse Ox 08/22/21 15:14 08/22/21 13:01 08/22/21 12:29 08/22/21 08:43 08/22/21 08:00 94 08/22/21 07:19 08/22/21 07:08 08/22/21 05:17 Laboratory Results Short CBC 08/22/21 Range/Units 05:33 WBC 12.85 H (4.8-10.8) K/uL Hgb 12.0 (12.0-16.0) g/dL Hct 37.6 (37-47) % Plt Count 345 (130-400) K/uL [facility] 08/22/21 05:33 Sodium 138 Potassium 3.4 L Chloride 98 Carbon Dioxide 36 H BUN 12 Creatinine 0.33 L Glucose 125 H Calcium 8.9 Medications Administered Current Inpatient Medications Acetaminophen (Acetaminophen 325 Mg Tab) 650 mg PO Q4H PRN PRN Reason: Pain or Fever Stop: 09/17/21 23:36 Amiodarone HCl (Amiodarone 200 Mg Tab) 200 mg PO BIDM [facility] Stop: 09/21/21 16:59 Artificial Tears (Artificial Tears) 1 drops OP DAILY PRN PRN Reason: Dry Eye(S) Stop: 09/18/21 01:20 Aspirin (Aspirin 81 Mg Ectab) 81 mg PO QAM [facility] Stop: 09/18/21 08:59 Last Admin: 08/20/21 08:19 Dose: Not Given Documented by: Atorvastatin Calcium (Atorvastatin 20 Mg Tab) 20 mg PO HS [facility] Stop: 09/18/21 20:59 Last Admin: 08/21/21 21:25 Dose: 20 mg Documented by: Cyclosporine (Cyclosporine (Restasis Eye Drops)) 1 drops OP BID [facility] Stop: 09/18/21 20:59 Last Admin: 08/22/21 08:24 Dose: 1 drops Documented by: Enoxaparin Sodium (Enoxaparin Inj 30 Mg/0.3 Ml Syr) 30 mg SQ QAM [facility] Stop: 09/18/21 08:59 Last Admin: 08/19/21 07:42 Dose: 30 mg Documented by: Promethazine HCl 6.25 mg/ (Sodium Chloride) 50.25 mls @ 201 mls/hr IV Q6H PRN PRN Reason: Nausea And Vomiting Stop: 09/17/21 23:36 Ampicillin Sodium/Sulbactam Sodium 3,000 mg/ Sodium Chloride 108 mls @ 216 mls/hr IV Q6H [facility]; Protocol Stop: 08/26/21 05:59 Last Infusion: 08/22/21 13:32 Dose: Infused Documented by: Ipratropium Brainerd (Ipratropium Brain[place] Neb Soln 0.02% 2.5 Ml Vial) 0.5 mg INH Q6R PRN PRN Reason: Shortness Of Breath Or Wheezing Stop: 09/18/21 00:59 Levalbuterol HCl (Levalbuterol 1.25mg/0.5ml Neb) 1.25 mg INH Q6R PRN PRN Reason: Shortness Of Breath Or Wheezing Stop: 09/18/21 00:59 Miscellaneous Information (Ampicillin/Sulbactam Consult Active) 1 ea N/A UD PRN PRN Reason: Consult Stop: 09/18/21 01:22 Multivitamins (Multivitamin Tab) 1 tab PO [facility] Stop: 09/18/21 08:59 Last Admin: 08/22/21 08:23 Dose: 1 tab Documented by: Prednisone (Prednisone 20 Mg Tab) 20 mg PO DAILY [facility] Stop: 08/23/21 08:59 Last Admin: 08/22/21 08:23 Dose: 20 mg Documented by: Tramadol HCl (Tramadol Hcl 50 Mg Tablet) 25 - 50 mg PO Q4H PRN PRN Reason: Pain Stop: 09/17/21 23:36
--- NOTE | 2021-08-22 17:09 | Pulmonology Progress Note ---
Date of Service August 22, 2021 Assessment & Plan (1) Metastatic adenocarcinoma: (2) Pulmonary mass: (3) Hypoxia: (4) Breath shortness: (5) Pleural effusion on left: Plan: 71-year-old female with a past medical history of tobacco abuse presenting with multiple lung masses and weight loss. Status post bronchoscopy 08/20/2021 and left-sided thoracentesis 08/20/2021 with 1200 mL of pleural fluid removed. Pleural fluid cytology consistent with metastatic adenocarcinoma. Patient was very intolerant of bronchoscopy and thus biopsy yield was low. Appreciate medical oncology input. Should there be a significant recurrence of pleural effusion, can consider repeat thoracentesis and/or Pleurx catheter placement. Recommend palliative care evaluation. BAL from bronchoscopy negative for infectious etiology. Pleural fluid negative as well for infectious etiology. Thank you for allowing us to participate in the care of this patient. Please call with questions. Pulmonary will sign off. Admission and Anticipated Discharge Date Admission Date: August 18, 2021 Subjective Patient seen and examined. Patient remains dyspneic and is needing 5 L of oxygen. He denies any chest pain. No fevers or chills. Review of Systems Review of Systems: All systems reviewed & are unremarkable except as noted in HPI & below Physical Exam Physical Exam: Patient appears mildly short of breath and anxious. Constitutional: + ill appearing and average body habitus Eyes: PERRL, conjunctivae normal, anicteric sclerae ENMT: external ear and nose normal, oropharynx normal Neck: trachea midline, no thyromegaly Respiratory: no respiratory distress Auscultation: + diminished lung sounds and + crackles (Bilaterally minimal) Cardiovascular: Rate/Rhythm: regular rate, regular rhythm and + tachycardic Heart Sounds: normal S1 and normal S2; no murmur Gastrointestinal (Abdomen): Inspection/Auscultation: normal bowel sounds; abdomen not distended Percussion/Palpation: abdomen soft; abdomen nontender Neurologic: Alert, awake and oriented x3 Results & Data Results & Data ([facility]) Vital Signs (Past 12 Hours) Vital Signs Temp Pulse Pulse Pulse Resp BP Pulse Ox 08/22/21 15:14 36.6 C 103 H 20 145/74 H 92 08/22/21 13:01 108 H 18 94 08/22/21 12:29 36.7 C 97 H 18 123/72 94 08/22/21 08:43 18 93 08/22/21 08:00 08/22/21 07:19 111 H 08/22/21 07:08 36.6 C 103 H 18 119/74 94 08/22/21 05:17 98 H 20 92 Pulse Ox 08/22/21 15:14 08/22/21 13:01 08/22/21 12:29 08/22/21 08:43 08/22/21 08:00 94 08/22/21 07:19 08/22/21 07:08 08/22/21 05:17 PG Care Time/CCT Total # of Minutes Spent Total Time Spent with Patient: Total time spent is greater than 50% in coordination of care (as documented) at patient's floor/unit and/or counseling patient: Coding Level of Care Code 10238 Subseq Hosp Care Lvl 2 Diagnoses Pulmonary mass R91.8 Hypoxia R09.02 Breath shortness R06.02 Pleural effusion on left J90 Metastatic adenocarcinoma C79.9
[2021-08-22] MEDS: ATORVASTATIN 20 MG TAB PO SCH (20:14)
[2021-08-22] MEDS: NICOTINE 21 MG/24 HR TDSY TD SCH (21:39)
[2021-08-23] MEDS: IPRATROPIUM BROMIDE NEB SOLN 0.02% 2.5 ML VIAL INH PRN ×3 (00:48→13:51)
[2021-08-23] MEDS: LEVALBUTEROL 1.25MG/0.5ML NEB INH PRN ×3 (00:48→13:51)
[2021-08-23] MEDS: AMPICILLIN/SULBACTAM SOD 3,000 MG in 0.9 % SODIUM CHLORIDE 100 ML IV SCH ×3 (05:25→17:02)
[2021-08-23] MEDS: MULTIVITAMIN TAB PO SCH (09:05)
[2021-08-23] MEDS: AMIODARONE 200 MG TAB PO SCH ×2 (09:05→17:01)
[2021-08-23] MEDS: NICOTINE 21 MG/24 HR TDSY TD SCH (09:06)
[2021-08-23] MEDS: CYCLOSPORINE OP SCH ×2 (09:07→20:05)
--- NOTE | 2021-08-23 12:37 | Cardiology Progress Note ---
Date of Service August 23, 2021 Assessment & Plan (1) Pulmonary mass: (2) Pleural effusion on left: (3) SVT (supraventricular tachycardia): Plan: Pt s/p left thoracentesis with pleural fluid cytology revealing rare malignant cells consistent with metastatic adenocarcinoma , lung primary. Echocardiogram performed 08/19/21 reviewed with findings of trace circumferential pericardial effusion without tamponade. Normal biventricular systolic function. Left pleural effusion with echodensities in the pleural space. No additional supraventricular arrhythmias since 08/21/21.Continue oral amiodarone 200 mg PO BID. Add low dose metoprolol and titrate as tolerated. 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 Review of telemetry event of 08/21, suggests SVT or perhaps event atrial flutter with suggestion of 7 second pause with adenosine infusion and flutter waves (or artifact noted during pause). Admission and Anticipated Discharge Date Admission Date: August 18, 2021 Subjective Patient seen in follow up . Comfortable. Sinus tachycardia at 100 bpm noted on telemetry. No additional SVT since 08/21/21 episode. Physical Exam Physical Exam: Temp Pulse Resp BP Pulse Ox 36.8 C 99 H 18 129/70 94 08/23/21 12:12 08/23/21 12:12 08/23/21 12:12 08/23/21 12:12 08/23/21 12:12 Constitutional: WD/WN, vitals as above Respiratory: Auscultation: + diminished lung sounds Cardiovascular: Rate/Rhythm: + tachycardic Heart Sounds: no murmur Extremities: no edema Gastrointestinal (Abdomen): normal bowel sounds, soft, nontender, no hepatosplenomegaly Neurologic: PERRL, EOMI, accommodation nl, no face palsy, no dysarthria Results & Data ([facility]) Vital Signs (Past 12 Hours) Vital Signs Temp Pulse Pulse Resp BP Pulse Ox 08/23/21 12:12 36.8 C 99 H 18 129/70 94 08/23/21 07:38 36.7 C 111 H 18 128/69 08/23/21 07:30 103 H 08/23/21 07:08 104 H 24 93 08/23/21 03:59 36.7 C 96 H 20 128/76 95 08/23/21 00:49 103 H 18 95 Diagnostic Findings Summary of CTA chest 08/18/21: 1. Large necrotic left upper lobe/left anterior mediastinal mass that measures 11 x 8 cm. This is suggestive of a central bronchogenic carcinoma. Extensive mediastinal invasion and lymphadenopathy with multifocal venous and airway stenosis/occlusion, as described above. Pulmonary consultation is recommended. 2. 6.4 cm necrotic left lower lobe mass and numerous smaller pulmonary metastases. 3. Moderate left pleural effusion. 4. No pulmonary emboli identified. 5. Emphysema.
--- NOTE | 2021-08-23 13:46 | Hospitalist Progress Note ---
Date of Service August 23, 2021 Assessment & Plan (1) Pulmonary mass: (2) Pleural effusion on left: (3) Breath shortness: (4) Hypoxia: Plan: Lung mass on imaging likely bronchogenic malignancy Acute hypoxemic respiratory failure Postobstructive pneumonia Sepsis POA: WBC and pulse rate at presentation elevated. Left pleural effusion Small pericardial effusion Patient has been smoking since age 16, does not use home oxygen, does not have established lung doctor as an outpatient per her, does not have trouble swallowing food. 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 6.4 cm necrotic left lower lobe mass and numerous smaller pulmonary metastasis. Moderate left pleural effusion. No PE. Emphysema. Small pericardial effusion. Brain MRI with no evidence for intracranial metastatic disease. Continue with Unasyn 08/19, supplemental oxygen, titrate as tolerated. Continue with nebs RTC, prednisone course for possible concomitant COPD exacerbation given emphysematous lungs on x-ray. Aspiration precaution, swallow eval. Follow echo for pericardial effusion-technically limited study, moderate size circumferential pericardial effusion with echodense structure in the fluid that may represent loculation versus malignancy. There is no echocardiographic indications of cardiac tamponade. EF 55 to 60% Appreciate pulmonary input and recommendation Pulmonology evaluated, n.p.o. midnight, bronchoscopy/EBUS tomorrow for pathologi estrella diagnosis of lung mass. Status post bronchial biopsy and left thoracentesis of 1.2 L of fluid Likely malignant lesion as per bronchoscopy-await pathology Discussed with granddaughter about lung mass which seems to be cancerous We will get an oncology evaluation in the hospital Prognosis remains poor Pathology report came back positive for adenocarcinoma of lung origin Appreciate oncologist input and recommendation Discussed with the granddaughter and updated about the diagnosis-she wants to know from the oncologist for further management from here Remains stable without any chest pain and breathing stable too She wanted to be a DNR/DNI-this issue was discussed with her in detail and after that she wanted to be DNR/DNI She also did not want to receive any chemotherapy and I told her that we will be addressed by the oncologist Will discuss with the granddaughter A. fib/flutter with RVR Likely secondary to direct involvement of the puneet and myocardium due to cancer as per echocardiogram The patient went into A. fib with RVR early this morning when reny arauz was called due to low blood pressure She received intravenous adenosine without any response and later on intravenous amiodarone was added Reverted to sinus rhythm Cardiology consulted-appreciate input and recommendation Heart rate remains reasonably stable at around 100s Heart rate remains below 100 and the patient is asymptomatic #. Other chronic medical conditions: HTN, HLD, prediabetes Continue with/resume home meds as and when appropriate. Patient's calcium supplement and HCTZ on hold due to elevated calcium level at presentation, resume when able. DVT prophylaxis: Lovenox subcu on hold, likely bronch and biopsy isi. Full code Patient's granddaughter Ms. Wandy Mart, contact #[phone] Prognosis remains poor Admission and Anticipated Discharge Date Admission Date: August 18, 2021 Subjective 08/20/2021 The patient was seen and examined in telemetry unit She has been complaining of cough with hemoptysis Has moderate shortness of breath but denies any pain She will have bronchoscopy today 08/21/2021 The patient was seen and examined in telemetry unit Reny arauz was called early this morning as the patient went into A. fib flutter with rapid ventricular rate She did not have any chest pain but did have more shortness of breath Reverted to sinus rhythm on intravenous amiodarone 08/22/2021 The patient was seen and examined in telemetry unit She has had more shortness of breath and required 1 dose of Lasix last night Remains reasonably stable today with shortness of breath and cough at times Denies any pain 08/23/2021 The patient was seen and examined in telemetry unit She remains stable with minimal shortness of breath at rest with anxiety First thing she mentioned that she wants to be DNR and she does not need any treatment for the cancer Denies any pain in the chest and the cough seems to be improved Review of Systems Review of Systems: All systems reviewed and are unremarkable except as noted below Respiratory: Cough with hemoptysis Physical Exam Physical Exam: Lying in bed with anxiety and moderate distress due to shortness of breath Constitutional: + ill appearing and average body habitus Eyes: PERRL, conjunctivae normal, anicteric sclerae ENMT: external ear and nose normal, oropharynx normal Neck: trachea midline, no thyromegaly Respiratory: no respiratory distress Auscultation: + diminished lung sounds and + crackles (Bilaterally minimal) Cardiovascular: Rate/Rhythm: + tachycardic and + irregularly irregular Heart Sounds: normal S1 and normal S2; no murmur Gastrointestinal (Abdomen): Inspection/Auscultation: normal bowel sounds; abdomen not distended Percussion/Palpation: abdomen soft; abdomen nontender Musculoskeletal: No acute arthritis in any joint Neurologic: Alert, awake and oriented x3. Generally weak and remains very anxious Lymphatic: no cervical or axillary lymphadenopathy Results & Data Results & Data ([facility]) Vital Signs (Past 12 Hours) Vital Signs Temp Pulse Pulse Resp BP Pulse Ox 08/23/21 12:12 36.8 C 99 H 18 129/70 94 08/23/21 07:38 36.7 C 111 H 18 128/69 08/23/21 07:30 103 H 08/23/21 07:08 104 H 24 93 08/23/21 03:59 36.7 C 96 H 20 128/76 95 Medications Administered Current Inpatient Medications Acetaminophen (Acetaminophen 325 Mg Tab) 650 mg PO Q4H PRN PRN Reason: Pain or Fever Stop: 09/17/21 23:36 Amiodarone HCl (Amiodarone 200 Mg Tab) 200 mg PO BIDM [facility] Stop: 09/21/21 16:59 Last Admin: 08/23/21 09:05 Dose: 200 mg Documented by: Artificial Tears (Artificial Tears) 1 drops OP DAILY PRN PRN Reason: Dry Eye(S) Stop: 09/18/21 01:20 Aspirin (Aspirin 81 Mg Ectab) 81 mg PO QAM [facility] Stop: 09/18/21 08:59 Last Admin: 08/20/21 08:19 Dose: Not Given Documented by: Atorvastatin Calcium (Atorvastatin 20 Mg Tab) 20 mg PO HS [facility] Stop: 09/18/21 20:59 Last Admin: 08/22/21 20:14 Dose: 20 mg Documented by: Cyclosporine (Cyclosporine (Restasis Eye Drops)) 1 drops OP BID [facility] Stop: 09/18/21 20:59 Last Admin: 08/23/21 09:07 Dose: 1 drops Documented by: Enoxaparin Sodium (Enoxaparin Inj 30 Mg/0.3 Ml Syr) 30 mg SQ QAM [facility] Stop: 09/18/21 08:59 Last Admin: 08/19/21 07:42 Dose: 30 mg Documented by: Promethazine HCl 6.25 mg/ (Sodium Chloride) 50.25 mls @ 201 mls/hr IV Q6H PRN PRN Reason: Nausea And Vomiting Stop: 09/17/21 23:36 Ampicillin Sodium/Sulbactam Sodium 3,000 mg/ Sodium Chloride 108 mls @ 216 mls/hr IV Q6H [facility]; Protocol Stop: 08/26/21 05:59 Last Infusion: 08/23/21 13:13 Dose: Infused Documented by: Ipratropium Boscobel (Ipratropium [place] Neb Soln 0.02% 2.5 Ml Vial) 0.5 mg INH Q6R PRN PRN Reason: Shortness Of Breath Or Wheezing Stop: 09/18/21 00:59 Last Admin: 08/23/21 13:51 Dose: 0.5 mg Documented by: Levalbuterol HCl (Levalbuterol 1.25mg/0.5ml Neb) 1.25 mg INH Q6R PRN PRN Reason: Shortness Of Breath Or Wheezing Stop: 09/18/21 00:59 Last Admin: 08/23/21 13:51 Dose: 1.25 mg Documented by: Metoprolol Tartrate (Metoprolol Tartrate 25 Mg Tab) 12.5 mg PO BID [facility] Stop: 09/22/21 12:59 Miscellaneous (Remove Nicoderm Patch) 1 ea N/A DAILY@0859 [facility] Stop: 09/22/21 08:58 Last Admin: 08/23/21 09:05 Dose: 1 ea Documented by: Multivitamins (Multivitamin Tab) 1 tab PO QAM [facility] Stop: 09/18/21 08:59 Last Admin: 08/23/21 09:05 Dose: 1 tab Documented by: Nicotine (Nicotine 21 Mg/24 Hr Tdsy) 21 mg TD DAILY [facility] Stop: 09/21/21 20:19 Last Admin: 08/23/21 09:06 Dose: 21 mg Documented by: Tramadol HCl (Tramadol Hcl 50 Mg Tablet) 25 - 50 mg PO Q4H PRN PRN Reason: Pain Stop: 09/17/21 23:36
[2021-08-23] MEDS: METOPROLOL TARTRATE 25 MG TAB PO SCH ×2 (13:55→20:04)
[2021-08-23] MEDS ORDERED: ALBUT/IPRATROP 3MG/0.5MG NEB 3 ML VIAL NEB SCH (14:30)
[2021-08-23] MEDS ORDERED: IPRATROPIUM BROMIDE NEB SOLN 0.02% 2.5 ML VIAL INH SCH (19:00)
[2021-08-23] MEDS: LEVALBUTEROL HCL 0.63 MG/3 ML NEB NEB SCH (19:12)
[2021-08-23] MEDS: ATORVASTATIN 20 MG TAB PO SCH (20:04)
[2021-08-24] MEDS: LEVALBUTEROL HCL 0.63 MG/3 ML NEB NEB SCH ×4 (00:01→20:12)
[2021-08-24] MEDS: AMPICILLIN/SULBACTAM SOD 3,000 MG in 0.9 % SODIUM CHLORIDE 100 ML IV SCH ×5 (00:06→23:05)
[2021-08-24 07:03] LABS: Basophils # (auto) 0.01 K/uL (0-0.2); Basophils % (auto) 0.1 %; Eosinophils # (auto) 0.23 K/uL (0-0.5); Eosinophils % (auto) 1.7 %; Hematocrit (blood only) 36.2 % (37-47); Hemoglobin 11.1 g/dL (12.0-16.0); Immature Granulocytes # (auto) 0.17 K/uL (0.00-0.02); Immature Granulocytes % (auto) 1.3 %; Lymphocytes # (auto) 0.51 K/uL (1.2-3.4); Lymphocytes % (auto) 3.8 %; Mean Corpuscular Hemoglobin 26.5 pg (25-34); Mean Corpuscular Hgb Conc 30.7 g/dL (32-36); Mean Corpuscular Volume 86.4 fL (80-100); Mean Platelet Volume 9.8 fL (7.4-10.4); Monocytes # (auto) 1.04 K/uL (0.11-0.59); Monocytes % (auto) 7.8 %; Neutrophils % (auto) 85.3 %; Platelet Count 333 K/uL (130-400); RDW Coefficient of Variation 14.5 % (11.5-14.5); Red Blood Count 4.19 M/uL (4.2-5.4); White Blood Count 13.26 K/uL (4.8-10.8)
[2021-08-24 07:17] LABS: BUN Creatinine Ratio 44.8 (10-20); Calcium 9.1 mg/dl (8.5-10.1); Creatinine Clr Calc Pharmacy 149.3 ml/min; Est GFR (Non-African American) 117.3 ml/min; Potassium 3.7 mmol/L (3.5-5.1)
[2021-08-24] MEDS: AMIODARONE 200 MG TAB PO SCH ×2 (08:05→17:17)
[2021-08-24] MEDS: METOPROLOL TARTRATE 25 MG TAB PO SCH ×2 (08:05→20:55)
[2021-08-24] MEDS: MULTIVITAMIN TAB PO SCH (08:05)
[2021-08-24] MEDS: NICOTINE 21 MG/24 HR TDSY TD SCH (08:07)
[2021-08-24] MEDS: CYCLOSPORINE OP SCH ×2 (08:08→20:56)
--- NOTE | 2021-08-24 13:27 | Cardiology Progress Note ---
Date of Service August 24, 2021 Assessment & Plan (1) Pleural effusion on left: (2) Metastatic adenocarcinoma: Plan: Telemetry reveals sinus rhythm and sinus tachycardia in the 90s to 100s, rates mildly improved compared to yesterday. Continue amiodarone 200 mg p.o. twice daily, metoprolol tartrate 12.5 mg twice daily. Admission and Anticipated Discharge Date Admission Date: August 18, 2021 Subjective Patient without acute complaints. Receiving nebulizer therapy during my assessment. Increasing oxygen requirements over the last 24 hours noted, now up to 7 L/min. Results & Data ([facility]) Vital Signs (Past 12 Hours) Vital Signs Temp Pulse Resp BP Pulse Ox 08/24/21 13:14 94 H 20 94 08/24/21 11:25 36.7 C 95 H 20 131/76 95 08/24/21 08:10 20 93 08/24/21 07:16 102 H 18 95 08/24/21 07:10 36.4 C L 104 H 20 144/71 H 95 08/24/21 03:18 36.6 C 94 H 18 116/70 95
--- NOTE | 2021-08-24 14:19 | Hospitalist Progress Note ---
Date of Service August 24, 2021 Assessment & Plan (1) Pulmonary mass: (2) Pleural effusion on left: (3) Breath shortness: (4) Hypoxia: Plan: Lung mass on imaging likely bronchogenic malignancy Acute hypoxemic respiratory failure Postobstructive pneumonia Sepsis POA: WBC and pulse rate at presentation elevated. Left pleural effusion Small pericardial effusion Patient has been smoking since age 16, does not use home oxygen, does not have established lung doctor as an outpatient per her, does not have trouble swallowing food. 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 6.4 cm necrotic left lower lobe mass and numerous smaller pulmonary metastasis. Moderate left pleural effusion. No PE. Emphysema. Small pericardial effusion. Brain MRI with no evidence for intracranial metastatic disease. Continue with Unasyn 08/19, supplemental oxygen, titrate as tolerated. Continue with nebs RTC, prednisone course for possible concomitant COPD exacerbation given emphysematous lungs on x-ray. Aspiration precaution, swallow eval. Follow echo for pericardial effusion-technically limited study, moderate size circumferential pericardial effusion with echodense structure in the fluid that may represent loculation versus malignancy. There is no echocardiographic indications of cardiac tamponade. EF 55 to 60% Appreciate pulmonary input and recommendation Pulmonology evaluated, n.p.o. midnight, bronchoscopy/EBUS tomorrow for pathologi estrella diagnosis of lung mass. Status post bronchial biopsy and left thoracentesis of 1.2 L of fluid Likely malignant lesion as per bronchoscopy-await pathology Discussed with granddaughter about lung mass which seems to be cancerous We will get an oncology evaluation in the hospital Prognosis remains poor Pathology report came back positive for adenocarcinoma of lung origin Appreciate oncologist input and recommendation Discussed with the granddaughter and updated about the diagnosis-she wants to know from the oncologist for further management from here Remains stable without any chest pain and breathing stable too She wanted to be a DNR/DNI-this issue was discussed with her in detail and after that she wanted to be DNR/DNI She also did not want to receive any chemotherapy and I told her that we will be addressed by the oncologist Condition deteriorated and has been requiring about 7 L to maintain saturation We will discussed with the granddaughter this afternoon and likely to go for com fort care from here A. fib/flutter with RVR Likely secondary to direct involvement of the puneet and myocardium due to cancer as per echocardiogram The patient went into A. fib with RVR early this morning when reny arauz was called due to low blood pressure She received intravenous adenosine without any response and later on intravenous amiodarone was added Reverted to sinus rhythm Cardiology consulted-appreciate input and recommendation Heart rate remains reasonably stable at around 100s Heart rate remains below 100 and the patient is asymptomatic Rate is controlled and is below 100 without any chest pain and/or palpitation #. Other chronic medical conditions: HTN, HLD, prediabetes Continue with/resume home meds as and when appropriate. Patient's calcium supplement and HCTZ on hold due to elevated calcium level at presentation, resume when able. DVT prophylaxis: Lovenox subcu on hold, likely bronch and biopsy isi. Full code Patient's granddaughter Ms. Wandy Mart, contact #[phone] Prognosis remains poor Admission and Anticipated Discharge Date Admission Date: August 18, 2021 Subjective 08/20/2021 The patient was seen and examined in telemetry unit She has been complaining of cough with hemoptysis Has moderate shortness of breath but denies any pain She will have bronchoscopy today 08/21/2021 The patient was seen and examined in telemetry unit Reny arauz was called early this morning as the patient went into A. fib flutter with rapid ventricular rate She did not have any chest pain but did have more shortness of breath Reverted to sinus rhythm on intravenous amiodarone 08/22/2021 The patient was seen and examined in telemetry unit She has had more shortness of breath and required 1 dose of Lasix last night Remains reasonably stable today with shortness of breath and cough at times Denies any pain 08/23/2021 The patient was seen and examined in telemetry unit She remains stable with minimal shortness of breath at rest with anxiety First thing she mentioned that she wants to be DNR and she does not need any treatment for the cancer Denies any pain in the chest and the cough seems to be improved 08/24/2021 The patient was seen and examined in telemetry unit She has had acute shortness of breath last night and has been requiring about 7 L of oxygen to maintain saturation since this morning Denies any pain Moderate shortness of breath at rest Review of Systems Review of Systems: All systems reviewed and are unremarkable except as noted below Respiratory: Moderate shortness of breath without any pain Physical Exam Physical Exam: Lying in bed with anxiety and moderate distress due to shortness of breath Constitutional: + ill appearing and average body habitus Eyes: PERRL, conjunctivae normal, anicteric sclerae ENMT: external ear and nose normal, oropharynx normal Neck: trachea midline, no thyromegaly Respiratory: no respiratory distress Auscultation: + diminished lung sounds and + crackles (Bilaterally minimal) Cardiovascular: Rate/Rhythm: + tachycardic and + irregularly irregular Heart Sounds: normal S1 and normal S2; no murmur Gastrointestinal (Abdomen): Inspection/Auscultation: normal bowel sounds; abdomen not distended Percussion/Palpation: abdomen soft; abdomen nontender Musculoskeletal: No acute arthritis in any joint Neurologic: Alert, awake and oriented x3. Anxious and very shortness of breath at rest with weakness Lymphatic: no cervical or axillary lymphadenopathy Results & Data Results & Data ([facility]) Vital Signs (Past 12 Hours) Vital Signs Temp Pulse Resp BP Pulse Ox 08/24/21 13:14 94 H 20 94 08/24/21 11:25 36.7 C 95 H 20 131/76 95 08/24/21 08:10 20 93 08/24/21 07:16 102 H 18 95 08/24/21 07:10 36.4 C L 104 H 20 144/71 H 95 08/24/21 03:18 36.6 C 94 H 18 116/70 95 Laboratory Results Short CBC 08/24/21 Range/Units 06:01 WBC 13.26 H (4.8-10.8) K/uL Hgb 11.1 L (12.0-16.0) g/dL Hct 36.2 L (37-47) % Plt Count 333 (130-400) K/uL BMP 08/24/21 06:01 Sodium 143 Potassium 3.7 Chloride 101 Carbon Dioxide 39 H BUN 13 Creatinine 0.29 L Glucose 139 H Calcium 9.1 Medications Administered Current Inpatient Medications Acetaminophen (Acetaminophen 325 Mg Tab) 650 mg PO Q4H PRN PRN Reason: Pain or Fever Stop: 09/17/21 23:36 Amiodarone HCl (Amiodarone 200 Mg Tab) 200 mg PO BIDM [facility] Stop: 09/21/21 16:59 Last Admin: 08/24/21 08:05 Dose: 200 mg Documented by: Artificial Tears (Artificial Tears) 1 drops OP DAILY PRN PRN Reason: Dry Eye(S) Stop: 09/18/21 01:20 Aspirin (Aspirin 81 Mg Ectab) 81 mg PO QAM [facility] Stop: 09/18/21 08:59 Last Admin: 08/20/21 08:19 Dose: Not Given Documented by: Atorvastatin Calcium (Atorvastatin 20 Mg Tab) 20 mg PO HS [facility] Stop: 09/18/21 20:59 Last Admin: 08/23/21 20:04 Dose: 20 mg Documented by: Cyclosporine (Cyclosporine (Restasis Eye Drops)) 1 drops OP BID [facility] Stop: 09/18/21 20:59 Last Admin: 08/24/21 08:08 Dose: 1 drops Documented by: Enoxaparin Sodium (Enoxaparin Inj 30 Mg/0.3 Ml Syr) 30 mg SQ QAM [facility] Stop: 09/18/21 08:59 Last Admin: 08/19/21 07:42 Dose: 30 mg Documented by: Promethazine HCl 6.25 mg/ (Sodium Chloride) 50.25 mls @ 201 mls/hr IV Q6H PRN PRN Reason: Nausea And Vomiting Stop: 09/17/21 23:36 Ampicillin Sodium/Sulbactam Sodium 3,000 mg/ Sodium Chloride 108 mls @ 216 mls/hr IV Q6H [facility]; Protocol Stop: 08/26/21 05:59 Last Infusion: 08/24/21 12:44 Dose: Infused Documented by: Levalbuterol HCl (Levalbuterol Hcl 0.63 Mg/3 Ml Neb) 0.63 mg NEB Q6R [facility]; Protocol Stop: 09/22/21 18:59 Last Admin: 08/24/21 13:13 Dose: 0.63 mg Documented by: Melatonin (Melatonin 3 Mg Tab) 3 mg PO HS PRN PRN Reason: Sleep Stop: 09/22/21 16:50 Metoprolol Tartrate (Metoprolol Tartrate 25 Mg Tab) 12.5 mg PO BID [facility] Stop: 09/22/21 12:59 Last Admin: 08/24/21 08:05 Dose: 12.5 mg Documented by: Miscellaneous (Remove Nicoderm Patch) 1 ea N/A DAILY@59 [facility] Stop: 09/22/21 08:58 Last Admin: 08/24/21 08:07 Dose: 1 ea Documented by: Multivitamins (Multivitamin Tab) 1 tab PO QAM [facility] Stop: 09/18/21 08:59 Last Admin: 08/24/21 08:05 Dose: 1 tab Documented by: Nicotine (Nicotine 21 Mg/24 Hr Tdsy) 21 mg TD DAILY [facility] Stop: 09/21/21 20:19 Last Admin: 08/24/21 08:07 Dose: 21 mg Documented by: Tramadol HCl (Tramadol Hcl 50 Mg Tablet) 25 - 50 mg PO Q4H PRN PRN Reason: Pain Stop: 09/17/21 23:36
[2021-08-24] MEDS: ATORVASTATIN 20 MG TAB PO SCH (20:55)
[2021-08-24] MEDS: MELATONIN 3 MG TAB PO PRN (23:58)
[2021-08-25] MEDS: LEVALBUTEROL HCL 0.63 MG/3 ML NEB NEB SCH ×4 (00:28→19:23)
[2021-08-25] MEDS: AMPICILLIN/SULBACTAM SOD 3,000 MG in 0.9 % SODIUM CHLORIDE 100 ML IV SCH ×3 (05:04→17:31)
[2021-08-25] MEDS: MULTIVITAMIN TAB PO SCH (08:50)
[2021-08-25] MEDS: METOPROLOL TARTRATE 25 MG TAB PO SCH ×2 (08:50→21:19)
[2021-08-25] MEDS: AMIODARONE 200 MG TAB PO SCH ×2 (08:50→17:31)
[2021-08-25] MEDS: NICOTINE 21 MG/24 HR TDSY TD SCH (08:51)
[2021-08-25] MEDS: CYCLOSPORINE OP SCH ×2 (08:52→21:19)
--- NOTE | 2021-08-25 15:38 | Hospitalist Progress Note ---
Date of Service August 25, 2021 Assessment & Plan (1) Pulmonary mass: (2) Pleural effusion on left: (3) Breath shortness: (4) Hypoxia: Plan: Lung mass on imaging likely bronchogenic malignancy Acute hypoxemic respiratory failure Postobstructive pneumonia Sepsis POA: WBC and pulse rate at presentation elevated. Left pleural effusion Small pericardial effusion Patient has been smoking since age 16, does not use home oxygen, does not have established lung doctor as an outpatient per her, does not have trouble swallowing food. Patient reports dyspnea with exertion since 1 week [employer], worsening voice for quite some time. 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 6.4 cm necrotic left lower lobe mass and numerous smaller pulmonary metastasis. Moderate left pleural effusion. No PE. Emphysema. Small pericardial effusion. Brain MRI with no evidence for intracranial metastatic disease. Continue with Unasyn 08/19, supplemental oxygen, titrate as tolerated. Continue with nebs RTC, prednisone course for possible concomitant COPD exacerbation given emphysematous lungs on x-ray. Aspiration precaution, swallow eval. Follow echo for pericardial effusion-technically limited study, moderate size circumferential pericardial effusion with echodense structure in the fluid that may represent loculation versus malignancy. There is no echocardiographic indications of cardiac tamponade. EF 55 to 60% Appreciate pulmonary input and recommendation Pulmonology evaluated, n.p.o. midnight, bronchoscopy/EBUS tomorrow for pathologi estrella diagnosis of lung mass. Status post bronchial biopsy and left thoracentesis of 1.2 L of fluid Likely malignant lesion as per bronchoscopy-await pathology Discussed with granddaughter about lung mass which seems to be cancerous We will get an oncology evaluation in the hospital Prognosis remains poor Pathology report came back positive for adenocarcinoma of lung origin Appreciate oncologist input and recommendation Discussed with the granddaughter and updated about the diagnosis-she wants to know from the oncologist for further management from here Remains stable without any chest pain and breathing stable too She wanted to be a DNR/DNI-this issue was discussed with her in detail and after that she wanted to be DNR/DNI She also did not want to receive any chemotherapy and I told her that we will be addressed by the oncologist Condition deteriorated and has been requiring about 7 L to maintain saturation We will discussed with the granddaughter this afternoon and likely to go for com fort care from here Condition improved as of today and has been talking and eating Requiring 8 L to maintain saturation Await palliative care input A. fib/flutter with RVR Likely secondary to direct involvement of the puneet and myocardium due to cancer as per echocardiogram The patient went into A. fib with RVR early this morning when reny arauz was called due to low blood pressure She received intravenous adenosine without any response and later on intravenous amiodarone was added Reverted to sinus rhythm Cardiology consulted-appreciate input and recommendation Heart rate remains reasonably stable at around 100s Heart rate remains below 100 and the patient is asymptomatic Rate is controlled and is below 100 without any chest pain and/or palpitation Rate remains around 100 without any symptoms #. Other chronic medical conditions: HTN, HLD, prediabetes Continue with/resume home meds as and when appropriate. Patient's calcium supplement and HCTZ on hold due to elevated calcium level at presentation, resume when able. DVT prophylaxis: Lovenox subcu on hold, likely bronch and biopsy isi. Full code Patient's granddaughter Ms. Wandy Mart, contact #[phone] Prognosis remains poor Admission and Anticipated Discharge Date Admission Date: August 18, 2021 Subjective 08/20/2021 The patient was seen and examined in telemetry unit She has been complaining of cough with hemoptysis Has moderate shortness of breath but denies any pain She will have bronchoscopy today 08/21/2021 The patient was seen and examined in telemetry unit Reny arauz was called early this morning as the patient went into A. fib flutter with rapid ventricular rate She did not have any chest pain but did have more shortness of breath Reverted to sinus rhythm on intravenous amiodarone 08/22/2021 The patient was seen and examined in telemetry unit She has had more shortness of breath and required 1 dose of Lasix last night Remains reasonably stable today with shortness of breath and cough at times Denies any pain 08/23/2021 The patient was seen and examined in telemetry unit She remains stable with minimal shortness of breath at rest with anxiety First thing she mentioned that she wants to be DNR and she does not need any treatment for the cancer Denies any pain in the chest and the cough seems to be improved 08/24/2021 The patient was seen and examined in telemetry unit She has had acute shortness of breath last night and has been requiring about 7 L of oxygen to maintain saturation since this morning Denies any pain Moderate shortness of breath at rest 08/25/2021 The patient was seen and examined in telemetry unit She has been feeling much better today but is still requiring 8 L of oxygen to maintain saturation She has been eating and drinking and denies any significant pain Review of Systems Review of Systems: All systems reviewed and are unremarkable except as noted below Respiratory: Moderate shortness of breath without any pain Physical Exam Physical Exam: Lying in bed with anxiety and moderate distress due to shortness of breath Constitutional: + ill appearing and average body habitus Eyes: PERRL, conjunctivae normal, anicteric sclerae ENMT: external ear and nose normal, oropharynx normal Neck: trachea midline, no thyromegaly Respiratory: no respiratory distress Auscultation: + diminished lung sounds and + crackles (Bilaterally minimal) Cardiovascular: Rate/Rhythm: + tachycardic and + irregularly irregular Heart Sounds: normal S1 and normal S2; no murmur Gastrointestinal (Abdomen): Inspection/Auscultation: normal bowel sounds; abdomen not distended Percussion/Palpation: abdomen soft; abdomen nontender Musculoskeletal: No acute arthritis in any joint Neurologic: Alert, awake and oriented x3 Lymphatic: no cervical or axillary lymphadenopathy Results & Data Results & Data ([facility]) Vital Signs (Past 12 Hours) Vital Signs Temp Pulse Pulse Resp BP Pulse Ox 08/25/21 14:57 101 H 08/25/21 12:14 99 H 22 95 08/25/21 11:36 36.8 C 95 H 18 121/74 97 08/25/21 07:32 36.9 C 79 22 144/76 H 92 08/25/21 07:25 93 H 26 H 91 08/25/21 07:20 100 H 08/25/21 04:08 36.6 C 92 H 24 124/75 95 Medications Administered Current Inpatient Medications Acetaminophen (Acetaminophen 325 Mg Tab) 650 mg PO Q4H PRN PRN Reason: Pain or Fever Stop: 09/17/21 23:36 Amiodarone HCl (Amiodarone 200 Mg Tab) 200 mg PO BIDM [facility] Stop: 09/21/21 16:59 Last Admin: 08/25/21 08:50 Dose: 200 mg Documented by: Artificial Tears (Artificial Tears) 1 drops OP DAILY PRN PRN Reason: Dry Eye(S) Stop: 09/18/21 01:20 Aspirin (Aspirin 81 Mg Ectab) 81 mg PO QAM [facility] Stop: 09/18/21 08:59 Last Admin: 08/20/21 08:19 Dose: Not Given Documented by: Atorvastatin Calcium (Atorvastatin 20 Mg Tab) 20 mg PO HS [facility] Stop: 09/18/21 20:59 Last Admin: 08/24/21 20:55 Dose: 20 mg Documented by: Cyclosporine (Cyclosporine (Restasis Eye Drops)) 1 drops OP BID [facility] Stop: 09/18/21 20:59 Last Admin: 08/25/21 08:52 Dose: 1 drops Documented by: Enoxaparin Sodium (Enoxaparin Inj 30 Mg/0.3 Ml Syr) 30 mg SQ QAM [facility] Stop: 09/18/21 08:59 Last Admin: 08/19/21 07:42 Dose: 30 mg Documented by: Promethazine HCl 6.25 mg/ (Sodium Chloride) 50.25 mls @ 201 mls/hr IV Q6H PRN PRN Reason: Nausea And Vomiting Stop: 09/17/21 23:36 Ampicillin Sodium/Sulbactam Sodium 3,000 mg/ Sodium Chloride 108 mls @ 216 mls/hr IV Q6H [facility]; Protocol Stop: 08/26/21 05:59 Last Infusion: 08/25/21 11:51 Dose: Infused Documented by: Levalbuterol HCl (Levalbuterol Hcl 0.63 Mg/3 Ml Neb) 0.63 mg NEB Q6R [facility]; Protocol Stop: 09/22/21 18:59 Last Admin: 08/25/21 12:14 Dose: 0.63 mg Documented by: Melatonin (Melatonin 3 Mg Tab) 3 mg PO HS PRN PRN Reason: Sleep Stop: 09/22/21 16:50 Last Admin: 08/24/21 23:58 Dose: 3 mg Documented by: Metoprolol Tartrate (Metoprolol Tartrate 25 Mg Tab) 12.5 mg PO BID [facility] Stop: 09/22/21 12:59 Last Admin: 08/25/21 08:50 Dose: 12.5 mg Documented by: Miscellaneous (Remove Nicoderm Patch) 1 ea N/A DAILY@[id number] [facility] Stop: 09/22/21 08:58 Last Admin: 08/25/21 08:52 Dose: 1 ea Documented by: Multivitamins (Multivitamin Tab) 1 tab PO QAM [facility] Stop: 09/18/21 08:59 Last Admin: 08/25/21 08:50 Dose: 1 tab Documented by: Nicotine (Nicotine 21 Mg/24 Hr Tdsy) 21 mg TD DAILY [facility] Stop: 09/21/21 20:19 Last Admin: 08/25/21 08:51 Dose: 21 mg Documented by: Tramadol HCl (Tramadol Hcl 50 Mg Tablet) 25 - 50 mg PO Q4H PRN PRN Reason: Pain Stop: 09/17/21 23:36
[2021-08-25] MEDS: ATORVASTATIN 20 MG TAB PO SCH (21:20)
[2021-08-25] MEDS: MELATONIN 3 MG TAB PO PRN (21:22)
[2021-08-26] MEDS: LEVALBUTEROL HCL 0.63 MG/3 ML NEB NEB SCH ×4 (00:12→19:07)
[2021-08-26] MEDS: AMPICILLIN/SULBACTAM SOD 3,000 MG in 0.9 % SODIUM CHLORIDE 100 ML IV SCH (00:15)
[2021-08-26] MEDS ORDERED: LEVALBUTEROL HCL 1.25 MG/3 ML NEB NEB PRN (04:17)
[2021-08-26] MEDS ORDERED: LEVALBUTEROL HCL 1.25 MG/3 ML NEB ONE (04:38)
[2021-08-26 05:49] LABS: Basophils # (auto) 0.01 K/uL (0-0.2); Basophils % (auto) 0.1 %; Eosinophils # (auto) 0.09 K/uL (0-0.5); Eosinophils % (auto) 0.7 %; Hematocrit (blood only) 34.2 % (37-47); Hemoglobin 10.6 g/dL (12.0-16.0); Immature Granulocytes % (auto) 0.8 %; Lymphocytes # (auto) 0.97 K/uL (1.2-3.4); Lymphocytes % (auto) 7.6 %; Mean Corpuscular Hemoglobin 27.2 pg (25-34); Mean Corpuscular Volume 87.9 fL (80-100); Mean Platelet Volume 9.4 fL (7.4-10.4); Monocytes # (auto) 0.95 K/uL (0.11-0.59); Monocytes % (auto) 7.4 %; Neutrophils # (auto) 10.71 K/uL (1.4-6.5); Neutrophils % (auto) 83.4 %; Platelet Count 305 K/uL (130-400); RDW Coefficient of Variation 14.4 % (11.5-14.5); RDW Standard Deviation 46.7 fL (36.4-46.3); Red Blood Count 3.89 M/uL (4.2-5.4); White Blood Count 12.83 K/uL (4.8-10.8)
[2021-08-26 06:20] LABS: BUN Creatinine Ratio 55.6 (10-20); Calcium 9.2 mg/dl (8.5-10.1); Creatinine Clr Calc Pharmacy 120.3 ml/min; Est GFR (African American) 126.6 ml/min; Est GFR (Non-African American) 109.3 ml/min; Potassium 3.7 mmol/L (3.5-5.1)
[2021-08-26] MEDS: NICOTINE 21 MG/24 HR TDSY TD SCH (09:00)
[2021-08-26] MEDS: AMIODARONE 200 MG TAB PO SCH ×2 (09:00→17:17)
[2021-08-26] MEDS: MULTIVITAMIN TAB PO SCH (09:00)
[2021-08-26] MEDS: CYCLOSPORINE OP SCH ×2 (09:00→21:37)
[2021-08-26] MEDS: METOPROLOL TARTRATE 25 MG TAB PO SCH ×2 (09:00→21:37)
--- NOTE | 2021-08-26 15:12 | Palliative Care Consultation ---
Date of Consultation August 26, 2021 Assessment & Plan (1) Breath shortness: Increasing oxygen need. Denies feeling short of breath. (2) Palliative care encounter: I talked with Mrs. Cage about her cancer diagnosis and how she is handling this. She tells me that she has seen a lot of doctors and gotten a lot of information but is still really trying to comprehend what is happening. In the chart, there is mention of her talking about declining further cancer workup and treatment at one point. I asked her about this. She tells me that she has thought about this but is still unsure. She told me that her daughter, Jessica, would be her surrogate decision maker and that she has talked to her about how she feels. She indicated that she is confident that Jessica would know what decisions to make on her behalf. With her permission, I talked with Jessica. She tells me that she is concerned that Danette would not tolerate treatment and she feels that a comfort focused approach to her care would be the best option moving forward. She indicates that Danette would likely not be able to return to her home. She wants to discuss this further with Danette before making a final decision. Palliative care will follow. (3) Metastatic adenocarcinoma: History of Present Illness Reason for Consultation: goals of care Requesting Physician: Dr. Pulido Attending Physician: Leslie Pulido MD History of Present Illness 71 yo lady who lives alone who was admitted after her granddaughter encouraged her to come to the hospital to get checked out. Her granddaughter, Jessica Mart, who lives across the street from her noted that she had poor appetite, was losing weight, was pale and having a sore throat and cough. She came to the ER for evaluation and was found to be hypoxic. CT showed an 11 x 8 cm ESTRELLA/med iastinal massa 6.4cm LLL mass and a pleural effusion. She was also found to have a moderate pericardial effusion. Since admission she had thoracentesis with cytology confirming malignancy presumed to be adenocarcinoma. She developed afib with RVR and a code purple was called. She has improved on amiodarone and metoprolol. She is awake and alert but has a very hoarse voice with concern for left recurrent laryngeal nerve impingement from her tumor. She has been rather overwhelmed with the news of her advanced cancer and did meet with Dr. Barr but is unsure of how she wants to proceed with her care. We have been consulted to assist with goals of care. Allergies Allergy/AdvReac Type Severity Reaction Status Date / Time naproxen Allergy Intermediate HIVES Verified 08/18/21 19:59 Home Medications Medication Instructions Recorded Confirmed Type ascorbic acid (vitamin C) 1,000 mg 1,000 mg PO QAM 06/25/18 08/18/21 History tablet (Vitamin C) aspirin 81 mg tablet,delayed 81 mg PO QAM 06/25/18 08/18/21 History release calcium carbonate 500 mg-vitamin 2 tab PO QAM 06/25/18 08/18/21 History D3 5 mcg (200 unit) tablet (Os-Reji 500 + D3) carboxymethylcellulose sodium 1 drp OPB DAILY PRN 06/25/18 08/18/21 History cholecalciferol (vitamin D3) 25 1,000 unit PO QAM 06/25/18 08/18/21 History mcg (1,000 unit) capsule (Vitamin D3) cyanocobalamin (vitamin B-12) 1,000 mcg PO QAM 06/25/18 08/18/21 History 1,000 mcg tablet (Vitamin B-12) cyclosporine 0.05 % eye drops in a 1 drp OPB BID 06/25/18 08/18/21 History dropperette (Restasis) erythromycin with ethanol 2 % 1 applic TOPICAL QAM 06/25/18 08/18/21 History topical solution glucosamine sulfate 1,000 mg 2,000 mg PO BID 06/25/18 08/18/21 History capsule hydrochlorothiazide 25 mg tablet 25 mg PO QAM 06/25/18 08/18/21 History multivitamin 1 tab PO QAM 06/25/18 08/18/21 History omega 3 350 mg-dha 235 mg-epa 90 1 cap PO PM 06/25/18 08/18/21 History mg-fish oil 597 mg capsule,delay rel ([place]-3) atorvastatin 20 mg tablet 20 mg PO HS 08/18/21 08/18/21 History Patient History Medical History Metastatic adenocarcinoma No known health problems Pleural effusion on left Family History Other No pertinent family history Social History Smoking Status: Current every day smoker Tobacco Type: Cigarettes Hx Alcohol Use: No Hx Substance Use: No Preferred Language: [place] Communication Ability: Effective Telemetry Nurse Required: No Beliefs That Will Affect Care: None marital status: Single Current Living Situation: Alone Other Information That Helps Us Care for You: No Feels Safe at Home: Yes Safety Concerns: Feels Safe At This Time Assistive Devices: None Review of Systems Review of Systems: [place] Symptom Assessment Scale Pain 0/3 Dyspnea 1/3 Fatigue 2/3 Nausea 0/3 Anxiety 0/3 Drowsiness 1/3 Palliative Performance Score 40% Physical Exam Constitutional: + thin and + frail appearing ENMT: hoarse voice, congestion Respiratory: + uses accessory muscles high flow O2 at 10 LPM Cardiovascular: Rate/Rhythm: regular rate and regular rhythm Musculoskeletal: Extremities: + muscle atrophy Skin: pale, warm and dry Neurologic: awake; not confused Results & Data ([facility]) Vital Signs (Past 12 Hours) Vital Signs Temp Pulse Pulse Resp BP Pulse Ox 08/26/21 12:10 88 22 92 08/26/21 11:47 98.6 F 90 22 113/73 97 08/26/21 08:54 108 H 08/26/21 07:41 100 H 22 135/72 94 08/26/21 07:22 98 H 22 94 08/26/21 04:43 88 24 94 08/26/21 04:10 98.2 F 91 H 25 H 132/72 95 PG Care Time/CCT Total # of Minutes Spent Total Time Spent: 70 Total Time Spent with Patient: Total time spent is greater than 50% in coordination of care (as documented) at patient's floor/unit and/or counseling patient: goals of care, family update and support Coding Level of Care Code 46280 Initial Inpt Care Lvl 3 Diagnoses Breath shortness R06.02 Palliative care encounter Z51.5 Metastatic adenocarcinoma C79.9
--- NOTE | 2021-08-26 19:19 | Hospitalist Progress Note ---
Date of Service August 26, 2021 Assessment & Plan (1) Pulmonary mass: (2) Pleural effusion on left: (3) Breath shortness: (4) Hypoxia: Plan: Lung mass on imaging likely bronchogenic malignancy Acute hypoxemic respiratory failure Postobstructive pneumonia Sepsis POA: WBC and pulse rate at presentation elevated. Left pleural effusion Small pericardial effusion Patient has been smoking since age 16, does not use home oxygen, does not have established lung doctor as an outpatient per her, does not have trouble swallowing food. Patient reports dyspnea with exertion since 1 week [employer], worsening voice for quite some time. 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 6.4 cm necrotic left lower lobe mass and numerous smaller pulmonary metastasis. Moderate left pleural effusion. No PE. Emphysema. Small pericardial effusion. Brain MRI with no evidence for intracranial metastatic disease. Continue with Unasyn 08/19, supplemental oxygen, titrate as tolerated. Continue with nebs RTC, prednisone course for possible concomitant COPD exacerbation given emphysematous lungs on x-ray. Aspiration precaution, swallow eval. Follow echo for pericardial effusion-technically limited study, moderate size circumferential pericardial effusion with echodense structure in the fluid that may represent loculation versus malignancy. There is no echocardiographic indications of cardiac tamponade. EF 55 to 60% Appreciate pulmonary input and recommendation Pulmonology evaluated, n.p.o. midnight, bronchoscopy/EBUS tomorrow for pathologi estrella diagnosis of lung mass. Status post bronchial biopsy and left thoracentesis of 1.2 L of fluid Likely malignant lesion as per bronchoscopy-await pathology Discussed with granddaughter about lung mass which seems to be cancerous We will get an oncology evaluation in the hospital Prognosis remains poor Pathology report came back positive for adenocarcinoma of lung origin Appreciate oncologist input and recommendation Discussed with the granddaughter and updated about the diagnosis-she wants to know from the oncologist for further management from here Remains stable without any chest pain and breathing stable too She wanted to be a DNR/DNI-this issue was discussed with her in detail and after that she wanted to be DNR/DNI She also did not want to receive any chemotherapy and I told her that we will be addressed by the oncologist Condition deteriorated and has been requiring about 7 L to maintain saturation We will discussed with the granddaughter this afternoon and likely [facility] Condition improved as of today and has been talking and eating Requiring 8 L to maintain saturation Await palliative care input-appreciate palliative care input and recommendation Family members have been updated by palliative care physician and will discuss with them for further management plan Will likely go for comfort care down the line Does not have any significant pain A. fib/flutter with RVR Likely secondary to direct involvement of the puneet and myocardium due to cancer as per echocardiogram The patient went into A. fib with RVR early this morning when reny davonte was called due to low blood pressure She received intravenous adenosine without any response and later on intravenous amiodarone was added Reverted to sinus rhythm Cardiology consulted-appreciate input and recommendation Heart rate remains reasonably stable at around 100s Heart rate remains below 100 and the patient is asymptomatic Rate is controlled and is below 100 without any chest pain and/or palpitation Rate remains around 100 without any symptoms #. Other chronic medical conditions: HTN, HLD, prediabetes Continue with/resume home meds as and when appropriate. Patient's calcium supplement and HCTZ on hold due to elevated calcium level at presentation, resume when able. DVT prophylaxis: Lovenox subcu on hold, likely bronch and biopsy isi. Full code Patient's granddaughter Ms. Wandy Mart, contact #[phone] Prognosis remains poor Discussed with daughter and the sister today Admission and Anticipated Discharge Date Admission Date: August 18, 2021 Subjective 08/20/2021 The patient was seen and examined in telemetry unit She has been complaining of cough with hemoptysis Has moderate shortness of breath but denies any pain She will have bronchoscopy today 08/21/2021 The patient was seen and examined in telemetry unit Reny davonte was called early this morning as the patient went into A. fib flutter with rapid ventricular rate She did not have any chest pain but did have more shortness of breath Reverted to sinus rhythm on intravenous amiodarone 08/22/2021 The patient was seen and examined in telemetry unit She has had more shortness of breath and required 1 dose of Lasix last night Remains reasonably stable today with shortness of breath and cough at times Denies any pain 08/23/2021 The patient was seen and examined in telemetry unit She remains stable with minimal shortness of breath at rest with anxiety First thing she mentioned that she wants to be DNR and she does not need any treatment for the cancer Denies any pain in the chest and the cough seems to be improved 08/24/2021 The patient was seen and examined in telemetry unit She has had acute shortness of breath last night and has been requiring about 7 L of oxygen to maintain saturation since this morning Denies any pain Moderate shortness of breath at rest 08/25/2021 The patient was seen and examined in telemetry unit She has been feeling much better today but is still requiring 8 L of oxygen to maintain saturation She has been eating and drinking and denies any significant pain 08/26/2021 The patient was seen and examined in telemetry unit She remained stable and denies any significant pain but has mild to moderate shortness of breath at rest Has been requiring 10 L to maintain saturation Review of Systems Review of Systems: All systems reviewed and are unremarkable except as noted below Respiratory: Moderate shortness of breath without any pain Physical Exam Physical Exam: Lying in bed with anxiety and moderate distress due to shortness of breath Constitutional: + ill appearing and average body habitus Eyes: PERRL, conjunctivae normal, anicteric sclerae ENMT: external ear and nose normal, oropharynx normal Neck: trachea midline, no thyromegaly Respiratory: no respiratory distress Auscultation: + diminished lung sounds and + crackles (Bilaterally minimal) Cardiovascular: Rate/Rhythm: + tachycardic and + irregularly irregular Heart Sounds: normal S1 and normal S2; no murmur Gastrointestinal (Abdomen): Inspection/Auscultation: normal bowel sounds; abdomen not distended Percussion/Palpation: abdomen soft; abdomen nontender Musculoskeletal: No acute arthritis in any joint Neurologic: normal touch/pain/proprioception and moves all extremities Generally weak. Lymphatic: no cervical or axillary lymphadenopathy Results & Data Results & Data ([facility]) Vital Signs (Past 12 Hours) Vital Signs Temp Pulse Pulse Resp BP Pulse Ox 08/26/21 19:08 104 H 20 95 08/26/21 15:32 36.8 C 97 H 20 135/74 91 08/26/21 12:10 88 22 92 08/26/21 11:47 37.0 C 90 22 113/73 97 08/26/21 08:54 108 H 08/26/21 07:41 100 H 22 135/72 94 08/26/21 07:22 98 H 22 94 Laboratory Results Short CBC 08/26/21 Range/Units 05:17 WBC 12.83 H (4.8-10.8) K/uL Hgb 10.6 L (12.0-16.0) g/dL Hct 34.2 L (37-47) % Plt Count 305 (130-400) K/uL BMP 08/26/21 05:17 Sodium 145 Potassium 3.7 Chloride 100 Carbon Dioxide 44 H* BUN 20 Creatinine 0.36 L Glucose 122 H Calcium 9.2 Medications Administered Current Inpatient Medications Acetaminophen (Acetaminophen 325 Mg Tab) 650 mg PO Q4H PRN PRN Reason: Pain or Fever Stop: 09/17/21 23:36 Last Admin: 08/25/21 21:22 Dose: 650 mg Documented by: Amiodarone HCl (Amiodarone 200 Mg Tab) 200 mg PO BIDM [facility] Stop: 09/21/21 16:59 Last Admin: 08/26/21 17:17 Dose: 200 mg Documented by: Artificial Tears (Artificial Tears) 1 drops OP DAILY PRN PRN Reason: Dry Eye(S) Stop: 09/18/21 01:20 Aspirin (Aspirin 81 Mg Ectab) 81 mg PO QAM [facility] Stop: 09/18/21 08:59 Last Admin: 08/20/21 08:19 Dose: Not Given Documented by: Atorvastatin Calcium (Atorvastatin 20 Mg Tab) 20 mg PO HS [facility] Stop: 09/18/21 20:59 Last Admin: 08/25/21 21:20 Dose: 20 mg Documented by: Cyclosporine (Cyclosporine (Restasis Eye Drops)) 1 drops OP BID [facility] Stop: 09/18/21 20:59 Last Admin: 08/26/21 09:00 Dose: 1 drops Documented by: Enoxaparin Sodium (Enoxaparin Inj 30 Mg/0.3 Ml Syr) 30 mg SQ QAM [facility] Stop: 09/18/21 08:59 Last Admin: 08/19/21 07:42 Dose: 30 mg Documented by: Promethazine HCl 6.25 mg/ (Sodium Chloride) 50.25 mls @ 201 mls/hr IV Q6H PRN PRN Reason: Nausea And Vomiting Stop: 09/17/21 23:36 Levalbuterol HCl (Levalbuterol Hcl 0.63 Mg/3 Ml Neb) 0.63 mg NEB Q6R [facility]; Protocol Stop: 09/22/21 18:59 Last Admin: 08/26/21 19:07 Dose: 0.63 mg Documented by: Levalbuterol HCl (Levalbuterol Hcl 1.25 Mg/3 Ml Neb) 1.25 mg NEB Q2H PRN; Protocol PRN Reason: Shortness Of Breath Or Wheezing Stop: 09/25/21 04:29 Last Admin: 08/26/21 04:42 Dose: 1.25 mg Documented by: Melatonin (Melatonin 3 Mg Tab) 3 mg PO HS PRN PRN Reason: Sleep Stop: 09/22/21 16:50 Last Admin: 08/25/21 21:22 Dose: 3 mg Documented by: Metoprolol Tartrate (Metoprolol Tartrate 25 Mg Tab) 12.5 mg PO BID [facility] Stop: 09/22/21 12:59 Last Admin: 08/26/21 09:00 Dose: 12.5 mg Documented by: Miscellaneous (Remove Nicoderm Patch) 1 ea N/A DAILY@[id number] [facility] Stop: 09/22/21 08:58 Last Admin: 08/26/21 09:00 Dose: 1 ea Documented by: Multivitamins (Multivitamin Tab) 1 tab PO QAM [facility] Stop: 09/18/21 08:59 Last Admin: 08/26/21 09:00 Dose: 1 tab Documented by: Nicotine (Nicotine 21 Mg/24 Hr Tdsy) 21 mg TD DAILY [facility] Stop: 09/21/21 20:19 Last Admin: 08/26/21 09:00 Dose: 21 mg Documented by: Tramadol HCl (Tramadol Hcl 50 Mg Tablet) 25 - 50 mg PO Q4H PRN PRN Reason: Pain Stop: 09/17/21 23:36
[2021-08-26] MEDS ORDERED: LORazepam 0.5 MG TAB PO STA (20:06)
[2021-08-26] MEDS: ATORVASTATIN 20 MG TAB PO SCH (21:37)
[2021-08-27] MEDS: LEVALBUTEROL HCL 0.63 MG/3 ML NEB NEB SCH ×3 (00:07→12:24)
[2021-08-27] MEDS: METOPROLOL TARTRATE 25 MG TAB PO SCH (09:03)
[2021-08-27] MEDS: MULTIVITAMIN TAB PO SCH (09:05)
[2021-08-27] MEDS: AMIODARONE 200 MG TAB PO SCH (09:05)
[2021-08-27] MEDS: NICOTINE 21 MG/24 HR TDSY TD SCH (09:05)
[2021-08-27] MEDS: CYCLOSPORINE OP SCH (09:06)
[2021-08-27] MEDS ORDERED: LORazepam 0.5 MG TAB PO PRN (09:49)
[2021-08-27] MEDS ORDERED: STAT IV Infusion **Titration per Protocol STA (11:40)
[2021-08-27] MEDS ORDERED: HYOSCYAMINE SULFATE 0.125 MG TAB SL PRN (11:41)
--- NOTE | 2021-08-27 11:48 | Hospitalist Progress Note ---
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 Patient with worsening clinical status and air hunger -will order comfort measures. Morphine drip initiated. PRN ativan for anxiety A fib with RVR -ok continue amiodarone and metoprolol PO to avoid rapid A fib which would be uncomfortable -will discontinue telemetry Admission and Anticipated Discharge Date Admission Date: August 18, 2021 Subjective Overnight patient very anxious, short of breath Currently appears to be struggling to breath. She is on 11L NC Family (chad) is present at bedside and grand daughter (Wandy) was on speaker phone. I had a discussion with them regarding Mrs Cage's worsening clinical status and air hunger. Family is agreeable to transitioning to comfort measures. We will initiate morphine drip. Discontinue all medications that are not comfort focused. Once family has had a chance to say their good byes, we will reduce her NC down to 2L/min to not prolong suffering. Physical Exam Physical Exam: Acutely ill, gasping for air, thin and cachetic Respiratory: wet gurgling breath sounds, rapid shallow open mouth breathing Cardiovascular: tachycardic Gastrointestinal (Abdomen): soft, non tender Neurologic: awake, nods/shakes her head to questions Results & Data Results & Data ([facility]) Vital Signs (Past 12 Hours) Vital Signs Temp Pulse Resp BP Pulse Ox 08/27/21 08:34 36.7 C 110 H 16 127/68 98 08/27/21 06:59 68 17 92 08/27/21 03:45 36.5 C 93 H 20 116/70 93 08/27/21 00:07 89 20 94
[2021-08-27] MEDS ORDERED: MoRPHine SULF/NSS 250 MG/250 ML BTL IV SCH (12:00)
--- NOTE | 2021-08-27 15:50 | Hospitalist Progress Note ---
Date of Service August 27, 2021 Assessment & Plan Admission and Anticipated Discharge Date Admission Date: August 18, 2021 Subjective Notified by RN that patient noted to go into asystolic at 1536. I arrived shortly later. Patient is surrounded by family. Absent heart and lung sounds. Pronounced at 1550. Family declines autopsy. Results & Data Results & Data ([facility]) Vital Signs (Past 12 Hours) Vital Signs Temp Pulse Pulse Resp BP Pulse Ox 08/27/21 14:18 87 08/27/21 11:43 36.3 C L 88 16 151/78 H 88 L 08/27/21 08:34 36.7 C 110 H 16 127/68 98 08/27/21 06:59 68 17 92 08/27/21 06:01 98 H
--- NOTE | 2021-08-29 09:40 | Discharge Summary ---
Date of Service August 29, 2021 Admission HPI Per Admitting Provider History obtained from patient, family, and records. Medical history significant for hypertension, hyperlipidemia, prediabetes, past tobacco abuse. Few weeks history of weight loss, poor appetite. No abdominal pain complaints. No headache symptoms. A week ago, patient hoarseness, sore throat, cough symptoms associated with mucus going down the back of her throat. No chest pain, no shortness of breath, no fluid retention. No known sick contacts. Patient completed COVID-19 vaccination. Patient seen at PCP's office. Symptoms attributed to postnasal drip for which Flonase was prescribed. No improvement of symptoms with Flonase prescription. Worsening junky cough although patient unable to expectorate followed by shortness of breath. No chest pain. Patient admits to coughing symptoms from time to time with water/food intake. O2 sats 80s upon arrival at the ER. Dropped to 60s when patient laid down on CAT scan. Patient received Ceftriaxone, Solu-Medrol and neb treatment at the ER. Patient currently feeling much better. 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 Acute hypoxic respiratory failure New onset Atrial fibrillation with RVR Discharge Exam Please see my note from 08/27 for exam at time of expiration Discharge Data Allergies Allergy/AdvReac Type Severity Reaction Status Date / Time naproxen Allergy Intermediate HIVES Verified 08/18/21 19:59 Consultations 08/18/21 22:13 ED Decision to Admit Stat 08/18/21 23:37 Consult Pulmonology Routine 08/21/21 08:39 Consult Cardiology Routine 08/21/21 12:13 Consult Oncology Routine 08/21/21 16:00 Consult Oncology Routine 08/26/21 10:12 Consult Palliative Care Routine Procedures Performed Operation Date: 08/20/21 12:00 <No data on this case meets the specified criteria> Operation Date: 08/20/21 12:00 Actual Procedures p Endobronchial Ultrasound (EBUS)(Bilateral) - Jelani Horowitz MD s Thoracentesis(Left) - Jelani Horowitz MD Ordered Studies 08/18/21 19:13 CT angio chest PE protocol Stat 08/19/21 08:42 MR brain wo/w con Urgent 08/20/21 10:31 US point of care ultrasound Urgent Hospital Course (1) Pulmonary mass: (2) Pleural effusion on left: (3) Breath shortness: (4) Hypoxia: Mrs Danette Cage is a 71 year old female with history of former smoker, history also of hypertension, prediabetes and hyperlipidemia presented to the ER 08/18 for weight loss, poor appetite, shortness of breath and weakness. Here, she was found to have multiple large lung masses and a 11x 8cm anterior mediastinal mass as well as a moderate left pleural effusion. She underwent thoracentesis of her left pleural effusion which revealed non small cell lung cancer. She was seen in consultation with Pulmonology and Palliative Care. On 08/27 she was noted to have increasing air hunger and respiratory failure and upon discussing further with family, they requested she be transitioned to comfort measures. She was placed on a morphine drip and peacefully and surrounded by her family later that day. Total Time Total Time Spent Total Time Spent (In Minutes): 45 Discharge Plan Discharge Items Patient Disposition: Other Date/Time: 08/27/21 15:50
== END 2021-08-27 16:54 | disposition expired | DRG 180 ==
LOC: ED 18:27 → 2S 22:36 → SUATTDRO 22:36 → 2S 23:13